=== PATIENT | male | born 1970 | race Caucasian/White ===

== ENCOUNTER 2016-11-27 17:22 | Inpatient (IN) ==
[2016-11-27] MEDS ORDERED: Ondansetron 4 MG/2 ML VIAL IV ONE (17:31)
--- NOTE | 2016-11-27 17:33 | Emergency Department Note ---
Disposition Clinical Impression: Nausea and vomiting, UTI (urinary tract infection), Elevated liver enzymes, ARF (acute renal failure), Hydronephrosis Disposition: Admitted As Inpatient Condition: Fair Referrals: NO,PCP [Non-Partnered Physician] - Forms: ED Satisfaction Letter Time of Disposition: 19:15 Nausea/Vomiting/Diarrhea HPI - General Chief complaint: ED Nausea/Vomiting/Diarrhea Stated complaint: nausea/vomiting Time Seen by Provider: 11/27/16 17:31 Source: patient, EMS Mode of arrival: EMS Limitations: no limitations Nursing Notes Reviewed: Yes Vital Signs Reviewed: Yes - History of Present Illness HPI Narrative: This is a 46-year-old male who presents by EMS for complaints of nausea and vomiting over the last 3 days. Patient denies any diarrhea, black, or bloody stools. Patient is not having any urinary symptoms. Patient denies any fevers. Patient is not having any chest pain or shortness of breath. Patient is not really having any abdominal pain with this vomiting. Pt states his home nurse called the squad for him to get evaluated. Pt Subjective Complaint: nausea, vomiting Onset (ago): day(s) (3) - Related Data Previous Rx's Medication Instructions Recorded Cefdinir [Omnicef] 300 mg PO BID #20 capsule 07/13/15 Mupirocin [Bactroban Oint] 1 appl TP BID #1 tube 07/13/15 Allergies Allergy/AdvReac Type Severity Reaction Status Date / Time codeine Allergy Rash Verified 07/13/15 01:50 All systems ED: reviewed and negative except as stated. Constitutional: Denies: fever, chills, weakness, weight change Eyes: Denies: eye pain, eye discharge, vision change ENT ED: Denies: ear pain, throat pain, dental pain, hearing loss, epistaxis, congestion, dysphagia Cardiovascular: Denies: chest pain, palpitations, dyspnea on exertion, edema, syncope Respiratory: Denies: cough, dyspnea, wheezes, hemoptysis, stridor Gastrointestinal: Reports: nausea, vomiting. Denies: abdominal pain, diarrhea, constipation, hematemesis, melena, hematochezia Genitourinary: Denies: urgency, dysuria, frequency, hematuria Musculoskeletal: Denies: back pain, neck pain, arthralgia, myalgia Integumentary: Denies: rash, abrasion, lesions Neurological: Denies: headache, weakness, numbness, paresthesias, confusion, abnormal gait, vertigo Psychiatric: Denies: anxiety, depression, suicidal thoughts, homicidal thoughts , auditory hallucinations, visual hallucinations Endocrine: Denies: fatigue Hematological/Lymphatic: Denies: easy bleeding, easy bruising Allergic/Immunologic: Denies: facial swelling, urticaria Past Medical History - Past Medical History Attestation: Yes The following information was validated with the patient. Source: patient Medical history: Reports: hyperlipidemia, hypertension Surgical history: Reports: no surgical history Psychiatric history: Reports: bipolar - Social History Smoking Status: Current every day smoker Smokeless Tobacco Status: No Alcohol use: Reports: none Drug use: Reports: none Physical Exam - General Limitations: no limitations General appearance: alert, in no apparent distress - Head Head exam: atraumatic, normocephalic, normal inspection - Eye Eye exam: Present: normal appearance, PERRL, EOMI - ENT ENT exam: normal exam, normal oropharynx, mucous membranes moist - Expanded ENT Exam External ear exam: Present: normal external inspection Mouth exam: Present: normal external inspection Teeth exam: Present: normal inspection Throat exam: Present: normal inspection - Neck Neck exam: Present: normal inspection, full ROM, trachea midline - Chest Chest inspection: Present: normal inspection, symmetric chest wall rise - Respiratory Respiratory exam: Present: normal lung sounds bilaterally - Cardiovascular Cardiovascular exam: Present: regular rate, normal rhythm, normal heart sounds - Abdominal Exam Abdominal exam: Present: soft, Non-Tender. Absent: tenderness, distention, guarding, rebound, rigidity - Extremities Exam Extremities exam: Present: normal inspection, full ROM. Absent: tenderness, pedal edema - Expanded Upper Extremity Exam Shoulder exam: Present: normal inspection, full ROM Arm exam: Present: normal inspection, full ROM Elbow exam: Present: normal inspection, full ROM Forearm/Wrist exam: Present: normal inspection, full ROM Hand exam: Present: normal inspection, full ROM Vascular exam: Normal: capillary refill, radial pulse - Expanded Lower Extremity Exam Hip/Pelvis exam: Present: normal inspection, full ROM Upper leg exam: Present: normal inspection, full ROM Knee exam: Present: normal inspection, full ROM Lower leg exam: Present: normal inspection, full ROM Ankle exam: Present: normal inspection, full ROM Foot/toe exam: Present: normal inspection, full ROM Neurovascular/Tendon exam: Absent: motor deficit, sensory deficit, tendon deficit - Back Exam Back exam: Present: normal inspection, full ROM. Absent: tenderness - Neurological Exam Neurological exam: Present: alert, oriented X3 - Expanded Neurological Exam Patient oriented to: Present: person, place, time Coma Scale Eye Opening: Spontaneous Coma Scale Motor Response: Obeys Commands Coma Scale Verbal Response: Oriented Coma Scale Total: 15 - Psychiatric Psychiatric exam: Present: normal mood, other (pt has an odd affect on exam) - Skin Skin exam: Present: warm, dry, intact, normal color Course - Consultations Consultation #1: I spoke with Dr. Lisandra lei to admit. Time: 19:20 Vital Signs Temperature 98.7 F 11/27/16 17:26 Pulse Rate 91 11/27/16 17:26 Respiratory Rate 24 11/27/16 17:26 Blood Pressure 122/94 11/27/16 17:26 O2 Sat by Pulse Oximetry 100 11/27/16 17:26 Temperature 98.7 F 11/27/16 17:26 Pulse Rate 97 11/27/16 18:25 Respiratory Rate 15 11/27/16 18:25 Blood Pressure 144/91 11/27/16 18:25 O2 Sat by Pulse Oximetry 97 11/27/16 18:25 Oxygen Delivery Oxygen Delivery Room Air Nausea/Vomiting/Diarrhea - Medical Records Medical records reviewed: Yes I reviewed the patient's medical records. - Lab Data Lab results reviewed: Yes I reviewed the patient's lab results. Result diagrams: 11/27/16 17:55 11/27/16 17:55 Lab Results 11/27/16 11/27/16 11/27/16 Range/Units 16:00 17:55 17:55 WBC 20.0 H (4.3-11.1) K/mcL RBC 4.04 L (4.19-5.50) M/mcL Hgb 11.7 L (12.9-16.9) g/dL Hct 34.6 L (37.5-50.1) % MCV 85.6 (83.0-100.0) fL MCH 29.0 (28.0-33.3) pg MCHC 33.8 (31.6-35.5) g/dL RDW 13.4 (11.5-14.5) % Plt Count 380 (140-400) K/mcL MPV 9.5 (9.4-12.4) fL Immature Gran % 2.3 (0-4) % Seg Neutrophils % 82.1 % Lymphocytes % 7.9 % Monocytes % 7.3 % Eosinophils % 0.2 % Basophils % 0.2 % Neutrophils # 16.4 H (1.6-8.9) K/mcL Lymphocytes # 1.6 (0.6-4.6) K/mcL Monocytes # 1.5 H (0.0-1.3) K/mcL Eosinophils # 0.1 (0.0-0.6) K/mcL Basophils # 0.0 (0.0-0.2) K/mcL Sodium 136 (136-145) mEq/L Potassium 3.7 (3.5-4.5) mEq/L Chloride 106 (98-109) mEq/L Carbon Dioxide 20 (19-29) mEq/L BUN 23 (8-26) mg/dL Creatinine 2.09 H (0.72-1.25) mg/dL Est GFR ( Amer) 41 L (> 60) Est GFR (Non-Af Amer) 34 L (> 60) BUN/Creatinine Ratio 11 (6-26) Glucose 112 H (70-99) mg/dL Calculated Osmolality 286 (280-300) Lactic Acid (0.5-2.2) mmol/L Calcium 10.6 (8.6-10.8) mg/dL Total Bilirubin 0.6 (0.2-1.2) mg/dL Direct Bilirubin 0.4 (0.0-0.5) mg/dL Indirect Bilirubin 0.2 (0.0-1.2) mg/dL AST 80 H (5-34) Units/L ALT 89 H (0-55) Units/L Alkaline Phosphatase 429 H (38-126) Units/L Troponin I (0-0.03) ng/mL B-Natriuretic Peptide (0-100) pg/mL Serum Total Protein 7.5 (6.0-8.3) g/dL Albumin 2.1 L (3.5-5.0) g/dL Globulin 5.4 H (2.4-3.5) g/dL Albumin/Globulin Ratio 0.4 L (1.1-2.2) Lipase 31 (8-78) Units/L Urine Color Yellow (Yellow) Urine Clarity Turbid A (Clear) Urine pH 7.0 (5.0-8.0) pH Units Ur Specific [place] 1.009 L (1.010-1.025) Urine Protein 100 H (Neg-Trace) mg/dL Urine Glucose (UA) Normal (Normal) mg/dL Urine Ketones Negative (Negative) mg/dL Urine Blood Moderate H (Negative) Urine Nitrite Positive A (Negative) Urine Bilirubin Negative (Negative) Urine Urobilinogen Normal (Normal) mg/dL Ur Leukocyte Esterase Large H (Negative) 11/27/16 11/27/16 11/27/16 Range/Units 17:55 17:55 17:55 WBC (4.3-11.1) K/mcL RBC (4.19-5.50) M/mcL Hgb (12.9-16.9) g/dL Hct (37.5-50.1) % MCV (83.0-100.0) fL MCH (28.0-33.3) pg MCHC (31.6-35.5) g/dL RDW (11.5-14.5) % Plt Count (140-400) K/mcL MPV (9.4-12.4) fL Immature Gran % (0-4) % Seg Neutrophils % % Lymphocytes % % Monocytes % % Eosinophils % % Basophils % % Neutrophils # (1.6-8.9) K/mcL Lymphocytes # (0.6-4.6) K/mcL Monocytes # (0.0-1.3) K/mcL Eosinophils # (0.0-0.6) K/mcL Basophils # (0.0-0.2) K/mcL Sodium (136-145) mEq/L Potassium (3.5-4.5) mEq/L Chloride (98-109) mEq/L Carbon Dioxide (19-29) mEq/L BUN (8-26) mg/dL Creatinine (0.72-1.25) mg/dL Est GFR ( Amer) (> 60) Est GFR (Non-Af Amer) (> 60) BUN/Creatinine Ratio (6-26) Glucose (70-99) mg/dL Calculated Osmolality (280-300) Lactic Acid 1.1 (0.5-2.2) mmol/L Calcium (8.6-10.8) mg/dL Total Bilirubin (0.2-1.2) mg/dL Direct Bilirubin (0.0-0.5) mg/dL Indirect Bilirubin (0.0-1.2) mg/dL AST (5-34) Units/L ALT (0-55) Units/L Alkaline Phosphatase (38-126) Units/L Troponin I 0.01 (0-0.03) ng/mL B-Natriuretic Peptide 18 (0-100) pg/mL Serum Total Protein (6.0-8.3) g/dL Albumin (3.5-5.0) g/dL Globulin (2.4-3.5) g/dL Albumin/Globulin Ratio (1.1-2.2) Lipase (8-78) Units/L Urine Color (Yellow) Urine Clarity (Clear) Urine pH (5.0-8.0) pH Units Ur Specific [place] (1.010-1.025) Urine Protein (Neg-Trace) mg/dL Urine Glucose (UA) (Normal) mg/dL Urine Ketones (Negative) mg/dL Urine Blood (Negative) Urine Nitrite (Negative) Urine Bilirubin (Negative) Urine Urobilinogen (Normal) mg/dL Ur Leukocyte Esterase (Negative) - Radiology Data Radiology results reviewed: Yes I reviewed the patient's radiology results. - EKG Data EKG attestation: Yes I reviewed and interpreted this EKG. EKG shows normal: sinus rhythm Rate: normal Rhythm: NSR [place]/QRS: normal Interpretation: no acute changes, nonspecific ST-T wave changes
[2016-11-27] MEDS ORDERED: 0.9 % Sodium Chloride 1,000 ML IV SCH (17:45)
[2016-11-27 18:02] LABS: Basophils % 0.2 %; Eosinophils # 0.1 K/mcL (0.0-0.6); Eosinophils % 0.2 %; Hematocrit 34.6 % (37.5-50.1); Hemoglobin 11.7 g/dL (12.9-16.9); Immature Granulocytes % 2.3 % (0-4); Lymphocytes # 1.6 K/mcL (0.6-4.6); Lymphocytes % 7.9 %; Mean Corpuscular HGB Conc 33.8 g/dL (31.6-35.5); Mean Corpuscular Volume 85.6 fL (83.0-100.0); Mean Platelet Volume 9.5 fL (9.4-12.4); Monocytes # 1.5 K/mcL (0.0-1.3); Monocytes % 7.3 %; Neutrophils # 16.4 K/mcL (1.6-8.9); Platelet Count 380 K/mcL (140-400); Red Blood Count 4.04 M/mcL (4.19-5.50); Red Cell Distribution Width 13.4 % (11.5-14.5); Segmented Neutrophils % 82.1 %
[2016-11-27 18:17] LABS: Albumin 2.1 g/dL (3.5-5.0); Albumin/Globulin Ratio 0.4 (1.1-2.2); Bilirubin,Direct 0.4 mg/dL (0.0-0.5); Bilirubin,Indirect 0.2 mg/dL (0.0-1.2); Bilirubin,Total 0.6 mg/dL (0.2-1.2); Calcium 10.6 mg/dL (8.6-10.8); Globulin 5.4 g/dL (2.4-3.5); Potassium 3.7 mEq/L (3.5-4.5); Total Protein 7.5 g/dL (6.0-8.3)
[2016-11-27 18:55] LABS: Bilirubin,Urine Negative (Negative); Blood,Urine Moderate (Negative); Clarity,Urine Turbid (Clear); Color,Urine Yellow (Yellow); Glucose,Urine (UA) Normal (Normal); Ketones,Urine Negative (Negative); Leukocyte Esterase,Urine Large (Negative); Nitrite,Urine Positive (Negative); Protein,Urine 100 mg/dL (Neg-Trace); Specific Gravity,Urine 1.009 (1.010-1.025); Urobilinogen,Urine Normal (Normal)
[2016-11-27 18:57] LABS: Bacteria,Urine Many per hpf (None-Few); RBC,Urine 15-30 per hpf (0-3); Squamous Epithelial Cell,Urine Many per lpf (None-Few); WBC,Urine TNTC per hpf (0-3)
[2016-11-27 19:38] LABS: Hyaline Casts,Urine None Seen per lpf (None-Few); Mucus,Urine Many (Few)
[2016-11-27 19:57] LABS: Hepatitis B Surface Antigen Nonreactive (Nonreactive)
--- NOTE | 2016-11-27 20:37 | Internal Med History&Physical ---
Date of Encounter: 11/27/16 Time of Encounter: 08:00 Assessment and Plan (1) UTI (urinary tract infection) Current visit: Yes Status: Acute CT with severe bilateral hydronephrosis, bilateral hydroureter, distal ureter narrowing, mild bladder wall thickening Hydronephrosis is chronic problem WBC 20, repeat CBC in am Ceftriaxone 1,000mg per day Urine culture, pending UA positive for leukocyte esterase, nitrite, blood, protein mucus Place urban Qualifiers: Urinary tract infection type: acute cystitis Hematuria presence: without hematuria Qualified Code(s): N30.00 - Acute cystitis without hematuria (2) Nausea and vomiting Current visit: Yes Status: Acute Patient not vomiting during exam Continue IVF at 150mL/hr Zofran, Phenergan as needed for nausea Qualifiers: Vomiting type: unspecified Vomiting Intractability: unspecified Qualified Code(s): R11.2 - Nausea with vomiting, unspecified (3) Hydronephrosis Current visit: Yes Status: Acute CT with severe bilateral hydronephrosis, bilateral hydroureter, distal ureter narrowing, mild bladder wall thickening Hydronephosis unchanged since US performed August, Urban in place Will continue aggressive IVF Qualifiers: Hydronephrosis type: with other ureteral stricture Qualified Code(s): N13.1 - Hydronephrosis with ureteral stricture, not elsewhere classified (4) Elevated liver enzymes Current visit: Yes Status: Acute Continue to trend LFTs Hepatic panel, pending (5) ARF (acute renal failure) Current visit: Yes Status: Acute Kidney function declined from 08/22 Cr 2.09 today, but was 1.43 / Continue IVF Avoid nephrotoxic agents Qualifiers: Acute renal failure type: unspecified Qualified Code(s): N17.9 - Acute kidney failure, unspecified (6) Leukocytosis Current visit: Yes Status: Acute WBC 20 Ceftriaxone 1,000 mg each day Await results of urine culture Qualifiers: Leukocytosis type: unspecified Qualified Code(s): D72.829 - Elevated white blood cell count, unspecified (7) Hypothyroidism Current visit: Yes Status: Acute continue home medication Qualifiers: Hypothyroidism type: unspecified Qualified Code(s): E03.9 - Hypothyroidism , unspecified (8) Bipolar disorder Current visit: Yes Status: Acute continue home medication Qualifiers: Active/Remission status: remission status unspecified Qualified Code(s): F31.9 - Bipolar disorder, unspecified Internal Medicine - H&P: HPI Chief complaint: nausea and vomiting Admitted From: Emergency Dept Plans for Post Hospital Care: Home History of present illness: Mr. Ferguson is a 46 year old male with past medical history of HLD, CKD, Hydronephrosis, Urinary Incontinence, Hypothyroidism, GERD, Bipolar disorder presented to the hospital with 3 day history of nausea and vomiting. He states that he "cannot keep anything down". The vomiting was associated with periumbilical and LUQ abdominal pain rated 6/10 at onset and 4/10 at this time. Patient states that after taking 1 tylenol the pain was improved. Patient admits history of heartburn for which he takes Ranitidine. He denies fever, chills, diarrhea, constipation, hematochezia, melena. Past Med Surg Social Fam HX - Past Medical History Medical history: GERD, hyperlipidemia, hypertension, other (hydronephrosis, urine incontinence, abdominal hernia) Psychiatric history: bipolar - Past Surgical History Surgical History: no surgical history, other (laparoscope in August 2015 for abdominal hernia) - Social History Smoking Status: Current every day smoker Smokeless Tobacco Status: No Alcohol use: none Drug use: none Internal Medicine - H&P: Meds Levothyroxine [Synthroid] 50 mcg PO 0630 11/27/16 [History] Ranitidine HCl 150 mg PO BID 11/27/16 [History] Sertraline [Zoloft] 50 mg PO DAILY 11/27/16 [History] Tamsulosin [Flomax] 0.4 mg 11/27/16 [History] Allergies codeine Allergy (Verified 07/13/15 01:50) Rash All Systems PM: A 10-system review of systems was performed and is negative for pertinent findings except as documented above in the HPI. - Constitutional Constitutional: no chills, no fever(s), no weight gain - EENT Nose, mouth and throat: other (admits hearing deficit) - Cardiovascular Cardiovascular ROS IM: no chest pain, no edema, no palpitations - Respiratory Respiratory: no cough, no dyspnea, no hemoptysis - Gastrointestinal Gastrointestinal: abdominal pain, heartburn, nausea, vomiting, no constipation, no diarrhea, no melena - Genitourinary Genitourinary ROS male: urinary incontinence, urinary urgency, no difficulty urinating, no dysuria, no flank pain, no hematuria, no urinary frequency, no urinary hesitancy - Musculoskeletal Musculoskeletal ROS IM: no muscle cramps - Neurological Neurological ROS: abnormal hearing - Psychiatric Psychiatric: other (bipolar disorder) - Constitutional Vitals: Temp Pulse Resp BP Pulse Ox 98.7 F 108 18 128/80 96 11/27/16 17:26 11/27/16 20:00 11/27/16 20:00 11/27/16 20:00 11/27/16 20:00 General appearance: Present: cooperative, A&O X 3, pleasant Exam: cognitive delay - Head Head exam: Present: atraumatic, normocephalic - Eye Eye exam: Present: EOMI - ENT ENT exam: Present: mucous membranes moist - Neck Neck exam general surgery: Present: full ROM, nuchal rigidity, supple Additional comments: no carotid bruit - Respiratory Respiratory exam: Present: CTAB. Absent: rales, rhonchi, wheezes - Cardiovascular Cardiovascular exam: Present: RRR, +S1, +S2 - GI/Abdominal GI/Abdominal exam: Present: normal bowel sounds, soft, tenderness (Mild tenderness to palpation RUQ and LUQ). Absent: hepatomegaly - Neurological Exam Neurological exam: Present: oriented X3 - Psychiatric Psychiatric exam: Present: normal affect, normal mood Internal Med - H&P Results - Labs CBC & Chem 7: 11/27/16 17:55 11/27/16 17:55 - Attending Attestation I examined this patient and my medical decision-making was reviewed with the RESP THERAPIST/PA/Advanced Practice Nurse/Resident Physician. I agree with the documented findings, disposition and treatment plan as described except to the extent set forth below.
[2016-11-27] MEDS ORDERED: Acetaminophen 325 MG TABLET PO PRN (21:34)
[2016-11-27] MEDS ORDERED: Naloxone 0.4 MG/ML INJ IVP PRN (21:34)
[2016-11-27] MEDS ORDERED: *HR* Promethazine 25 MG/ML VIAL IVP PRN (21:34)
[2016-11-28] MEDS ORDERED: Ondansetron 4 MG/2 ML VIAL IVP SCH ×2
[2016-11-28] MEDS: Pantoprazole 40 MG VIAL IVP SCH ×2 (00:06→09:15)
[2016-11-28] MEDS: 0.9 % Sodium Chloride 1,000 ML IV SCH ×3 (00:07→12:00)
[2016-11-28] MEDS ORDERED: Ondansetron 4 MG/2 ML VIAL IVP PRN (00:27)
[2016-11-28 05:52] LABS: Calcium 9.6 mg/dL (8.6-10.8); Potassium 3.6 mEq/L (3.5-4.5)
[2016-11-28] MEDS ORDERED: *HR* Enoxaparin 40 MG/0.4 ML SYRINGE SQ SCH (07:00)
--- NOTE | 2016-11-28 08:55 | Urology - Consult Note ---
Date of Encounter: 11/28/16 Time of Encounter: 08:53 - Assessment and Plan (1) ARF (acute renal failure) Current Visit: Yes Status: Acute Assessment and plan: Continue IV fluids and antibiotics. We'll follow GFR for improvement. May ultimately require urologic intervention because of the hydronephrosis. Qualifiers: Acute renal failure type: unspecified Qualified Code(s): N17.9 - Acute kidney failure, unspecified (2) Hydronephrosis Current Visit: Yes Status: Acute Assessment and plan: I carefully reviewed the CT scan images. The patient has significant bilateral hydronephrosis and hydroureter down to the ureterovesical junctions. He has a moderately distended bladder with mild bladder wall thickening. The hydronephrosis may be due to obstruction at the ureterovesical junction. He may have significant incomplete emptying. I'm still unsure if this is acute or chronic. I plan to check a post void bladder scan to assess for residual urine. If it is significantly elevated he may require a Figueroa catheter. Ultimately if his renal function does not improve he may require a cystoscopy, bilateral retrograde pyelograms, bilateral ureteral stents. This may be done as an outpatient as he is clinically stable. continue tamsulosin I will follow closely Qualifiers: Hydronephrosis type: unspecified Qualified Code(s): N13.30 - Unspecified hydronephrosis (3) UTI (urinary tract infection) Current Visit: Yes Status: Acute Assessment and plan: Follow cultures and continue antibiotics Qualifiers: Urinary tract infection type: acute cystitis Hematuria presence: without hematuria Qualified Code(s): N30.00 - Acute cystitis without hematuria (4) Poor historian Current Visit: Yes Status: Acute Assessment and plan: After my discussion with the patient I'm concerned that his mental capacity was not allow him to understand the CT scan findings and potential surgical intervention. He states he has a girlfriend that may help him make medical decisions. Multiple times during my discussion I asked him to repeat back what we had discussed and it was evident that he did not understand his current clinical situation Urology CN:SIMEON Consult date: 11/28/16 Reason for consult Urology: Hydronephrosis History of present illness: 46-year-old male. Presents to the emergency room with nausea vomiting. Ultrasound and then CT scan shows hydronephrosis and hydroureter down to the ureteral vesicle junction. Distended and mildly thickened bladder wall. Patient has renal insufficiency with a GFR 41 at admission that has improved to 45. Urinalysis indicates a urinary tract infection. Patient denies any significant urinary issues. Later after I questioned why he wore a diaper he said he has incontinence. No prior knowledge of renal insufficiency or hydronephrosis. Poor historian Past Med Surg Social Fam HX - Past Medical History Medical history: GERD, hyperlipidemia, hypertension, other Psychiatric history: bipolar - Past Surgical History Surgical History: no surgical history, other - Social History Smoking Status: Current every day smoker Packs per day: 1 Smokeless Tobacco Status: No Alcohol use: none Drug use: none - Family History Mother Living Status: Age at : 70 Cause of : Kidney failure Hx Family Genitourinary Disorders: Yes (CKD) Father History Unknown: Yes Age: 70 Family Member Ethnicity: Non- Living Status: Still Living Medications and Allergies Levothyroxine [Synthroid] 50 mcg PO 0630 11/27/16 [History] Ranitidine HCl 150 mg PO BID 11/27/16 [History] Sertraline [Zoloft] 50 mg PO DAILY 11/27/16 [History] Tamsulosin [Flomax] 0.4 mg 11/27/16 [History] Allergies codeine Allergy (Verified 07/13/15 01:50) Rash Review of Systems - Constitutional fatigue, no chills, no fever(s) - EENT Nose, mouth and throat: no dizziness - Cardiovascular no chest pain - Respiratory no cough - Gastrointestinal abdominal pain, nausea, vomiting - Genitourinary urinary incontinence - Musculoskeletal back pain - Integumentary no erythema - Neurological confusion - Psychiatric no anxiety - Hematologic/Lymphatic no easy bleeding - Allergic/Immunologic no throat swelling Exam Initial Vital Signs Temp Pulse Resp BP Pulse Ox 98.7 F 91 24 122/94 100 11/27/16 17:26 11/27/16 17:26 11/27/16 17:26 11/27/16 17:26 11/27/16 17:26 - General physical appearance Present: well developed, no distress - Eyes Present: PERRL - ENT Present: normal nares - Neck Present: no masses - Respiratory Present: normal respiratory effort - Cardiovascular Cardiovascular exam IM: RRR - Abdomen Abdomen: Present: soft, suprapubic tenderness - Genitourinary normal penis with no external lesions - Integumentary Present: no rash - Neurologic Present: normal coordination, other (Hard of hearing. Was not able to repeat back information that I just discussed with him) Urology Results - Labs 11/27/16 17:55 11/28/16 04:36 Abnormal lab results WBC 20.0 K/mcL (4.3-11.1) H 11/27/16 17:55 RBC 4.04 M/mcL (4.19-5.50) L 11/27/16 17:55 Hgb 11.7 g/dL (12.9-16.9) L 11/27/16 17:55 Hct 34.6 % (37.5-50.1) L 11/27/16 17:55 Neutrophils # 16.4 K/mcL (1.6-8.9) H 11/27/16 17:55 Monocytes # 1.5 K/mcL (0.0-1.3) H 11/27/16 17:55 Chloride 111 mEq/L (98-109) H 11/28/16 04:36 Carbon Dioxide 17 mEq/L (19-29) L 11/28/16 04:36 Creatinine 1.93 mg/dL (0.72-1.25) H 11/28/16 04:36 Est GFR ( Amer) 45 (> 60) L 11/28/16 04:36 Est GFR (Non-Af Amer) 38 (> 60) L 11/28/16 04:36 Glucose 135 mg/dL (70-99) H 11/28/16 04:36 AST 80 Units/L (5-34) H 11/27/16 17:55 ALT 89 Units/L (0-55) H 11/27/16 17:55 Alkaline Phosphatase 429 Units/L (38-126) H 11/27/16 17:55 Albumin 2.1 g/dL (3.5-5.0) L 11/27/16 17:55 Globulin 5.4 g/dL (2.4-3.5) H 11/27/16 17:55 Albumin/Globulin Ratio 0.4 (1.1-2.2) L 11/27/16 17:55 Urine Clarity Turbid (Clear) A 11/27/16 16:00 Ur Specific [place] 1.009 (1.010-1.025) L 11/27/16 16:00 Urine Protein 100 mg/dL (Neg-Trace) H 11/27/16 16:00 Urine Blood Moderate (Negative) H 11/27/16 16:00 Urine Nitrite Positive (Negative) A 11/27/16 16:00 Ur Leukocyte Esterase Large (Negative) H 11/27/16 16:00 Urine Microscopic RBC 15-30 per hpf (0-3) H 11/27/16 16:00 Urine Microscopic WBC TNTC per hpf (0-3) H 11/27/16 16:00 Ur Squamous Epith Cells Many per lpf (None-Few) H 11/27/16 16:00 Urine Bacteria Many per hpf (None-Few) H 11/27/16 16:00 Urine Mucus Many (Few) H 11/27/16 16:00 Ur Culture Indicated? YES (NO) A 11/27/16 16:00 Diabetes panel 11/28/16 Range/Units 04:36 Sodium 139 (136-145) mEq/L Potassium 3.6 (3.5-4.5) mEq/L Chloride 111 H (98-109) mEq/L Carbon Dioxide 17 L (19-29) mEq/L BUN 21 (8-26) mg/dL Creatinine 1.93 H (0.72-1.25) mg/dL Glucose 135 H (70-99) mg/dL Calcium 9.6 (8.6-10.8) mg/dL Calcium panel 11/28/16 Range/Units 04:36 Calcium 9.6 (8.6-10.8) mg/dL Pituitary panel 11/28/16 Range/Units 04:36 Sodium 139 (136-145) mEq/L Potassium 3.6 (3.5-4.5) mEq/L Chloride 111 H (98-109) mEq/L Carbon Dioxide 17 L (19-29) mEq/L BUN 21 (8-26) mg/dL Creatinine 1.93 H (0.72-1.25) mg/dL Glucose 135 H (70-99) mg/dL Calcium 9.6 (8.6-10.8) mg/dL Adrenal panel 11/28/16 Range/Units 04:36 Sodium 139 (136-145) mEq/L Potassium 3.6 (3.5-4.5) mEq/L Chloride 111 H (98-109) mEq/L Carbon Dioxide 17 L (19-29) mEq/L BUN 21 (8-26) mg/dL Creatinine 1.93 H (0.72-1.25) mg/dL Glucose 135 H (70-99) mg/dL Calcium 9.6 (8.6-10.8) mg/dL All other labs normal. Consult Discharge Plan - Plan Referrals: Andrew Francisco Jr, MD [Primary Care Provider] -
[2016-11-28] MEDS ORDERED: Pantoprazole 40 MG VIAL IVP SCH (09:00)
--- NOTE | 2016-11-28 12:42 | Internal Med Progress Note ---
Date of Encounter: 11/28/16 Time of Encounter: 12:40 - Assessment and plan (1) Hydronephrosis Current Visit: Yes Status: Chronic Assessment and plan: Patient is noted to have bilateral hydronephrosis and hydroureters due to obstruction at ureterovesical junctions. Urology consult appreciated, difficult to certain the chronicity of this condition. Patient may require cystoscopy, retrograde pyelograms and bilateral ureteral stents, which can be done as an outpatient. Recommend to check residual urine/post void with bladder scan, consider Figueroa catheter placement if elevated. Qualifiers: Hydronephrosis type: with ureteropelvic junction obstruction Qualified Code (s): Q62.0 - Congenital hydronephrosis (2) UTI (urinary tract infection) Current Visit: Yes Status: Acute Assessment and plan: Likely secondary to obstructive uropathy. Urine dipstick positive for UTI, urine culture grows gram-negative rods. Follow-up final urine culture and continue IV Rocephin for now. Qualifiers: Urinary tract infection type: acute cystitis Hematuria presence: without hematuria Qualified Code(s): N30.00 - Acute cystitis without hematuria (3) Acute kidney injury Current Visit: Yes Status: Acute Assessment and plan: Patient likely has acute on chronic renal dysfunction, likely due to prerenal etiology from GI losses along with obstructive uropathy. Serum creatinine from about 6-8 months back was noted to be 1.4. Improving serum creatinine at this time. Continue IV hydration and monitor urine output and serum creatinine. Avoid new nephrotoxic agents, dose medications according to current GFR. (4) Bipolar disorder Current Visit: Yes Status: Chronic Assessment and plan: Resume home medications. Stable mood at this time. Qualifiers: Active/Remission status: remission status unspecified Qualified Code(s): F31.9 - Bipolar disorder, unspecified (5) Elevated liver enzymes Current Visit: Yes Status: Chronic Assessment and plan: Uncertain etiology. Hepatitis B surface antigen negative. Follow-up remaining viral hepatitis panel. Continue to monitor LFTs. (6) Hypothyroidism Current Visit: Yes Status: Chronic Qualifiers: Hypothyroidism type: acquired Qualified Code(s): E03.9 - Hypothyroidism, unspecified (7) Leukocytosis Current Visit: Yes Status: Acute Assessment and plan: Likely related to stress from persistent nausea and vomiting along with underlying UTI. Currently noted to be improving. Qualifiers: Leukocytosis type: unspecified Qualified Code(s): D72.829 - Elevated white blood cell count, unspecified (8) Nausea and vomiting Current Visit: Yes Status: Resolved Qualifiers: Vomiting type: unspecified Vomiting Intractability: unspecified Qualified Code(s): R11.2 - Nausea with vomiting, unspecified - Subjective Interval history: Reports feeling much better. No chest or abdominal pain or shortness of breath. Refuses for indwelling urinary catheter replaced. No reported difficulty in passing urine. - Constitutional Vitals: Temp Pulse Resp BP Pulse Ox 98.3 F 91 18 116/76 95 11/28/16 10:37 11/28/16 10:37 11/28/16 10:37 11/28/16 10:37 11/28/16 10:37 General appearance: Present: cooperative, A&O X 2 - Respiratory Respiratory exam: Present: CTAB. Absent: accessory muscle use, rales, rhonchi, wheezes - Cardiovascular Cardiovascular exam: Present: RRR, +S1, +S2. Absent: diastolic murmur, gallop, rubs, systolic murmur - GI/Abdominal GI/Abdominal exam: Present: normal bowel sounds, soft, no peritoneal signs. Absent: distended, tenderness - Extremities Exam Extremities exam: Present: full ROM, warm, radial pulses palpable and symetrical. Absent: calf tenderness, cyanotic, pedal edema Internal Medicine: Result - Labs CBC & Chem 7: 11/28/16 12:36 11/28/16 04:36 Labs: BMP 11/28/16 04:36 Sodium 139 Potassium 3.6 Chloride 111 H Carbon Dioxide 17 L BUN 21 Creatinine 1.93 H Glucose 135 H Calcium 9.6 Consult Discharge Plan - Plan Referrals: Andrew Francisco Jr, MD [Primary Care Provider] - (Web request on11/28/2016 @[email or web address] )
[2016-11-28 12:53] LABS: Basophils # 0.1 K/mcL (0.0-0.2); Basophils % 0.3 %; Eosinophils # 0.1 K/mcL (0.0-0.6); Eosinophils % 0.4 %; Hematocrit 34.2 % (37.5-50.1); Hemoglobin 11.1 g/dL (12.9-16.9); Lymphocytes # 1.7 K/mcL (0.6-4.6); Lymphocytes % 9.8 %; Mean Corpuscular HGB Conc 32.5 g/dL (31.6-35.5); Mean Corpuscular Hemoglobin 28.7 pg (28.0-33.3); Mean Corpuscular Volume 88.4 fL (83.0-100.0); Mean Platelet Volume 9.5 fL (9.4-12.4); Monocytes # 1.1 K/mcL (0.0-1.3); Monocytes % 6.4 %; Neutrophils # 14.4 K/mcL (1.6-8.9); Platelet Count 395 K/mcL (140-400); Red Blood Count 3.87 M/mcL (4.19-5.50); Red Cell Distribution Width 13.8 % (11.5-14.5); Segmented Neutrophils % 81.1 %
[2016-11-28 13:05] LABS: Phosphorous 3.7 mg/dL (2.3-4.7)
[2016-11-28] MEDS: *HR* Heparin 5,000 UNIT/ML VIAL SQ SCH (19:49)
--- NOTE | 2016-11-28 20:06 | Electrocardiograph Report ---
[facility] Test Date: 2016-11-27 Pat Name: Lawrence Ferguson Department: 104 Room: 2A38 Gender: M [employer] Operator: SARAH : 1970 Requested By: Michelle Gonzales Order Number: [id number] Reading MD: Rowdy Blank DO Measurements Intervals [place] Rate: 96 P: 29 SD: 140 QRS: 4 QRSD: 92 T: 30 QT: 333 QTc: 386 Interpretive Statements Sinus rhythm Possible inferior myocardial infarction, age undetermined Electronically Signed On 11-28-16 20:04:45 EST by Rowdy Blank DO
[2016-11-29 05:07] LABS: Basophils % 0.3 %; Eosinophils # 0.1 K/mcL (0.0-0.6); Eosinophils % 0.9 %; Hematocrit 32.3 % (37.5-50.1); Hemoglobin 10.3 g/dL (12.9-16.9); Immature Granulocytes % 2.5 % (0-4); Lymphocytes # 1.6 K/mcL (0.6-4.6); Lymphocytes % 10.7 %; Mean Corpuscular HGB Conc 31.9 g/dL (31.6-35.5); Mean Corpuscular Hemoglobin 28.7 pg (28.0-33.3); Monocytes # 0.9 K/mcL (0.0-1.3); Monocytes % 5.9 %; Neutrophils # 11.8 K/mcL (1.6-8.9); Platelet Count 406 K/mcL (140-400); Red Blood Count 3.59 M/mcL (4.19-5.50); Segmented Neutrophils % 79.7 %
[2016-11-29 05:24] LABS: Calcium 9.9 mg/dL (8.6-10.8)
[2016-11-29] MEDS: *HR* Heparin 5,000 UNIT/ML VIAL SQ SCH (08:18)
[2016-11-29] MEDS: Pantoprazole 40 MG VIAL IVP SCH (08:18)
--- NOTE | 2016-11-29 09:13 | Urology Progress Note ---
Date of Encounter: 11/29/16 Time of Encounter: 09:11 - Assessment and Plan (1) ARF (acute renal failure) Current Visit: Yes Status: Acute Qualifiers: Acute renal failure type: unspecified Qualified Code(s): N17.9 - Acute kidney failure, unspecified (2) Hydronephrosis Current Visit: Yes Status: Chronic Assessment and plan: GFR is stable. I actually feel have some chronic renal insufficiency. PVR yesterday was 315cc. will hold off on urban cath and continue tamsulosin. followup 1-2 weeks after discharge. will reassess PVR and discuss potential for surgical intervention. Qualifiers: Hydronephrosis type: with ureteropelvic junction obstruction Qualified Code (s): Q62.0 - Congenital hydronephrosis (3) UTI (urinary tract infection) Current Visit: Yes Status: Acute Qualifiers: Urinary tract infection type: acute cystitis Hematuria presence: without hematuria Qualified Code(s): N30.00 - Acute cystitis without hematuria (4) Poor historian Current Visit: Yes Status: Acute Progress Note Subjective: no new complaints Objective Initial Vital Signs Temp Pulse Resp BP Pulse Ox 98.7 F 91 24 122/94 100 11/27/16 17:26 11/27/16 17:26 11/27/16 17:26 11/27/16 17:26 11/27/16 17:26 - General physical appearance Present: well developed, no distress - Labs 11/29/16 03:43 11/29/16 03:43 Diabetes panel 11/29/16 Range/Units 03:43 Sodium 140 (136-145) mEq/L Potassium 4.0 (3.5-4.5) mEq/L Chloride 114 H (98-109) mEq/L Carbon Dioxide 14 L (19-29) mEq/L BUN 16 (8-26) mg/dL Creatinine 1.88 H (0.72-1.25) mg/dL Glucose 155 H (70-99) mg/dL Calcium 9.9 (8.6-10.8) mg/dL Calcium panel 11/28/16 11/29/16 Range/Units 12:36 03:43 Calcium 9.9 (8.6-10.8) mg/dL Phosphorus 3.7 (2.3-4.7) mg/dL Pituitary panel 11/29/16 Range/Units 03:43 Sodium 140 (136-145) mEq/L Potassium 4.0 (3.5-4.5) mEq/L Chloride 114 H (98-109) mEq/L Carbon Dioxide 14 L (19-29) mEq/L BUN 16 (8-26) mg/dL Creatinine 1.88 H (0.72-1.25) mg/dL Glucose 155 H (70-99) mg/dL Calcium 9.9 (8.6-10.8) mg/dL Adrenal panel 11/29/16 Range/Units 03:43 Sodium 140 (136-145) mEq/L Potassium 4.0 (3.5-4.5) mEq/L Chloride 114 H (98-109) mEq/L Carbon Dioxide 14 L (19-29) mEq/L BUN 16 (8-26) mg/dL Creatinine 1.88 H (0.72-1.25) mg/dL Glucose 155 H (70-99) mg/dL Calcium 9.9 (8.6-10.8) mg/dL Consult Discharge Plan - Plan Referrals: Andrew Francisco Jr, MD [Primary Care Provider] - (Web request on11/28/2016 @[email or web address] )
[2016-11-29 11:06] VITALS: BP 105/72
[2016-11-29] MEDS: 0.9 % Sodium Chloride 1,000 ML IV SCH (11:57)
[2016-11-29 12:57] LABS: Hepatitis B Core IgM Nonreactive (Nonreactive); Hepatitis C Virus Antibody Nonreactive (Nonreactive)
[2016-11-29 13:49] LABS: Hepatitis A Antibody IgM Nonreactive (Nonreactive)
--- NOTE | 2016-11-29 13:59 | Discharge Summary ---
Date of Encounter: 11/29/16 Time of Encounter: 11:30 - Discharge Diagnosis (1) Hydronephrosis Priority: Primary Status: Chronic Qualifiers: Hydronephrosis type: with ureteropelvic junction obstruction Qualified Code (s): Q62.0 - Congenital hydronephrosis (2) UTI (urinary tract infection) Priority: Primary Status: Acute Qualifiers: Urinary tract infection type: acute cystitis Hematuria presence: without hematuria Qualified Code(s): N30.00 - Acute cystitis without hematuria (3) Acute kidney injury Priority: Primary Status: Acute (4) Bipolar disorder Priority: Secondary Status: Chronic Qualifiers: Active/Remission status: remission status unspecified Qualified Code(s): F31.9 - Bipolar disorder, unspecified (5) Elevated liver enzymes Priority: Secondary Status: Chronic (6) Hypothyroidism Priority: Secondary Status: Chronic Qualifiers: Hypothyroidism type: acquired Qualified Code(s): E03.9 - Hypothyroidism, unspecified (7) Leukocytosis Priority: Primary Status: Resolved Qualifiers: Leukocytosis type: unspecified Qualified Code(s): D72.829 - Elevated white blood cell count, unspecified (8) Nausea and vomiting Priority: Primary Status: Resolved Qualifiers: Vomiting type: unspecified Vomiting Intractability: unspecified Qualified Code(s): R11.2 - Nausea with vomiting, unspecified (9) Chronic kidney disease Priority: Secondary Status: Chronic Qualifiers: Chronic kidney disease stage: stage 3 (moderate) Qualified Code(s): N18.3 - Chronic kidney disease, stage 3 (moderate) - Discharge Medications Prescriptions: Levofloxacin [Levaquin] 500 mg PO Q48H #6 tablet Home Medications: Levothyroxine [Synthroid] 50 mcg PO DAILY 11/27/16 [History] Ranitidine HCl 150 mg PO BID 11/27/16 [History] Sertraline [Zoloft] 50 mg PO DAILY 11/27/16 [History] Tamsulosin [Flomax] 0.4 mg PO DAILY 11/27/16 [History] Levofloxacin [Levaquin] 500 mg PO Q48H #6 tablet 11/29/16 [Rx] Allergies/Adverse Reactions: Allergies codeine Allergy (Verified 07/13/15 01:50) Rash Date of admission: 11/27/16 21:27 Primary care physician: Andrew Francisco Jr, MD Consults: 11/27/16 22:30 Consult to Urology [CONS] Routine Consulting Provider: Jenifer Peacock Reason for Consult: acute on CKD, chronic urinary retention/obstructive uropathy. Call Completed: No Discharging clinician: Julia Vasquez Anticipated date of discharge: 11/29/16 - Patient Status Disposition: Home, Self-Care Condition: Good Functional capacity at discharge: independent ambulation Overall status at discharge: patient is progressing back to baseline - Discharge Instructions Instructions: Levofloxacin (By mouth), Acute Kidney Injury (DC), Urinary Tract Infection in Men (DC) Follow Up With: Andrew Francisco Jr, MD [Primary Care Provider] - (Web request @[phone] ) Additional Instructions: F/up with Urology ([facility]) in 1-2 weeks - Diet and Activity Activity: resume usual activities as tolerated Diet: advance to your usual diet Hospital course: Mr. Ferguson is a 46 year old male with bipolar disorder and chronic obstructive uropathy, admitted with persistent nausea, vomiting and weakness. He was started on IV hydration and PRN antiemetics and her GI symptoms resolved and he was able to tolerate oral diet. He was noted to have acute on likely chronic renal failure, and his serum creatinine gradually improved back to baseline. Urine culture grew Klebsiella, pansensitive and blood cultures remained negative. He was evaluated by Urology as CT abdomen showed B/L hydronephrosis and hydroureters due to possible UVJ obstruction, and recommended bladder post-void scan, which showed about 315cc and failed attempts at Figueroa catheterization. At this time, he was cleared for discharge with outpatient f/up with Urology for possible ureteral stenting. - Time Spent with Patient Total time spent providing and/or coordinating discharge services: Greater than 30 minutes (40 min) - Constitutional Vitals: Temp Pulse Resp BP Pulse Ox 97.6 F 66 16 105/72 96 11/29/16 11:05 11/29/16 11:05 11/29/16 11:05 11/29/16 11:05 11/29/16 11:05 General appearance: Present: cooperative, A&O X 2 - Respiratory Respiratory exam: Present: CTAB. Absent: accessory muscle use, rales, rhonchi, wheezes - Cardiovascular Cardiovascular exam: Present: RRR, +S1, +S2. Absent: diastolic murmur, gallop, rubs, systolic murmur - GI/Abdominal GI/Abdominal exam: Present: normal bowel sounds, soft, no peritoneal signs. Absent: distended, tenderness
== END 2016-11-29 14:11 | disposition home or self-care (01) | DRG 694 ==
LOC: 2ANU 17:22 → EMEROO 17:22 → 2ANU 21:05
PROVIDERS: ADMIT Family Medicine; ATTEND Internal Medicine

== ENCOUNTER 2017-07-17 03:40 | Inpatient (IN) ==
--- NOTE | 2017-07-17 03:53 | Emergency Department Note ---
Disposition Clinical Impression: ART (acute kidney injury) Leukocytosis Qualifiers: Leukocytosis type: unspecified Qualified Code(s): D72.829 - Elevated white blood cell count, unspecified Altered mental status Qualifiers: Altered mental status type: unspecified Qualified Code(s): R41.82 - Altered mental status, unspecified Disposition: Admitted As Inpatient Condition: Fair Referrals: Unassigned,Provider [Non-Partnered Physician] - Forms: ED Satisfaction Letter Time of Disposition: 05:38 Altered Mental Status HPI - General Chief Complaint: ED Altered Mental Status Stated Complaint: unresponsive Time Seen by Provider: 07/17/17 03:42 Source: EMS Mode of arrival: EMS Limitations: no limitations Nursing Notes Reviewed: Yes Vital Signs Reviewed: Yes - History of Present Illness HPI Narrative: Patient is a 46-year-old male with unknown past medical history. He presents today due to altered mental status. EMS states that the called EMS due to finding the patient shaking when she woke up. He was altered, would not answer any questions. Vitals were stable during transport. Glucose was in the 100s. On presentation, patient is staring blankly, to get back with coarse breath sounds on the left. Would not follow any commands. He would blink eyes when fingers got close to eyes but otherwise was not moving any extremities. Smelled strongly of urine. - Related Data Home Medications Medication Instructions Recorded Confirmed Levothyroxine [Synthroid] 50 mcg PO DAILY 11/27/16 07/17/17 Sertraline [Zoloft] 100 mg PO DAILY 11/27/16 07/17/17 Tamsulosin [Flomax] 0.4 mg PO DAILY 11/27/16 07/17/17 raNITIdine HCl [Ranitidine HCl] 150 mg PO BID 11/27/16 07/17/17 Allergies Allergy/AdvReac Type Severity Reaction Status Date / Time codeine Allergy Rash Verified 01/14/17 11:17 Limitations: ROS unobtainable due to patients medical condition Past Medical History - Past Medical History Attestation: Yes The following information was validated with the patient. Source: patient Medical history: Reports: GERD, hyperlipidemia, hypertension, other Surgical history: Reports: no surgical history, other Psychiatric history: Reports: bipolar - Social History Smoking Status: Current every day smoker Smokeless Tobacco Status: No Alcohol use: Reports: none Drug use: Reports: none Physical Exam - General Limitations: altered mental status General appearance: alert - Head Head exam: atraumatic, normocephalic, normal inspection - Eye Eye exam: Present: normal appearance, PERRL, EOMI - ENT ENT exam: mucous membranes dry - Neck Neck exam: Present: normal inspection - Chest Chest inspection: Present: normal inspection, symmetric chest wall rise - Respiratory Respiratory exam: Present: other (coarse breath sounds right LL; tachypnic) - Cardiovascular Cardiovascular exam: Present: regular rate, normal rhythm, normal heart sounds - Abdominal Exam Abdominal exam: Present: soft, Non-Tender. Absent: tenderness, distention, guarding, rebound, rigidity - Extremities Exam Extremities exam: Present: normal inspection. Absent: full ROM - Neurological Exam Neurological exam: Present: alert, other (Limited exam. Will not follow any commands, not moving extremities. Eyes open, staring upwards. Will blink eyes when fingers get close, but will not move eyes otherwise. ) - Psychiatric Psychiatric exam: Present: normal affect, normal mood - Skin Skin exam: Present: warm, dry, intact, normal color Course Course Narrative: Patient tachycardic and tachypneic on presentation. Physical exam shows: Neuro exam is Limited. Will not follow any commands, not moving extremities. Eyes open, staring upwards. Will blink eyes when fingers get close, but will not move eyes otherwise. Coarse breath sounds on the right. Smells strongly of urine. 05:11 CT scan of the head was negative for any acute intracranial abnormality. Chest x-ray shows left basilar atelectasis but no other acute cardiopulmonary process. Labs show elevated white blood cell count, ART, UA shows UTI. Troponin negative. EKG shows sinus tachycardia with no acute ST elevation. With tachycardia, tachypnea, UTI, patient meet sepsis criteria. Will give rocephin 2g. Currently waiting on lactic level. Patient given 1 L of fluid so far, will add on additional 2L to meet 30ml/kg goal. Plan to admit for further care. Head CT 07/17/17 03:42 IMPRESSION: No acute intracranial abnormality. D/ / Kip Tarango MD / Kip Tarango MD Interpreting Provider: Kip Tarango MD Chest X-Ray 07/17/17 03:49 IMPRESSION: Left basilar atelectasis. Otherwise no acute cardiopulmonary process is identified. D/ / Gene Lopez MD / Gene Lopez MD Interpreting Provider: Gene Lopez MD Vital Signs Temperature 98.2 F 07/17/17 03:41 Pulse Rate 110 07/17/17 03:41 Respiratory Rate 28 07/17/17 03:41 Blood Pressure 122/69 07/17/17 03:41 O2 Sat by Pulse Oximetry 95 07/17/17 03:41 Temperature 98.2 F 07/17/17 03:41 Pulse Rate 130 07/17/17 05:08 Respiratory Rate 20 07/17/17 05:08 Blood Pressure 115/74 07/17/17 05:08 O2 Sat by Pulse Oximetry 98 07/17/17 05:08 Oxygen Delivery Oxygen Delivery Room Air Altered Mental Status - MDM Narrative Medical decision making narrative: CT scan of the head was negative for any acute intracranial abnormality. Chest x-ray shows left basilar atelectasis but no other acute cardiopulmonary process. Labs show elevated white blood cell count, ART, UA shows UTI. Troponin negative. EKG shows sinus tachycardia with no acute ST elevation. With tachycardia, tachypnea, UTI, patient meet sepsis criteria. Will give rocephin 2g. Currently waiting on lactic level. Patient given 1 L of fluid so far, will add on additional 2L to meet 30ml/kg goal. Plan to admit for further care. - Medical Records Medical records reviewed: Yes I reviewed the patient's medical records. - Lab Data Lab results reviewed: Yes I reviewed the patient's lab results. Result diagrams: 07/17/17 03:55 07/17/17 03:55 Lab Results 07/17/17 07/17/17 07/17/17 Range/Units 03:55 03:55 03:55 WBC 18.7 H (4.3-11.1) K/mcL RBC 4.77 (4.19-5.50) M/mcL Hgb 13.4 (12.9-16.9) g/dL Hct 40.1 (37.5-50.1) % MCV 84.1 (83.0-100.0) fL MCH 28.1 (28.0-33.3) pg MCHC 33.4 (31.6-35.5) g/dL RDW 15.2 H (11.5-14.5) % Plt Count 191 (140-400) K/mcL MPV 9.8 (9.4-12.4) fL Immature Gran % 0.5 (0-4) % Seg Neutrophils % 85.3 % Lymphocytes % 5.7 % Monocytes % 7.7 % Eosinophils % 0.6 % Basophils % 0.2 % Neutrophils # 15.9 H (1.6-8.9) K/mcL Lymphocytes # 1.1 (0.6-4.6) K/mcL Monocytes # 1.4 H (0.0-1.3) K/mcL Eosinophils # 0.1 (0.0-0.6) K/mcL Basophils # 0.0 (0.0-0.2) K/mcL PT (9.4-12.1) Seconds INR APTT (26.0-36.0) Seconds Sodium 137 (136-145) mEq/L Potassium 3.6 (3.5-4.5) mEq/L Chloride 108 (98-109) mEq/L Carbon Dioxide 18 L (19-29) mEq/L BUN 24 (8-26) mg/dL Creatinine 2.74 H (0.72-1.25) mg/dL Est GFR ( Amer) 30 L (> 60) Est GFR (Non-Af Amer) 25 L (> 60) BUN/Creatinine Ratio 9 (6-26) Glucose 109 H (70-99) mg/dL Calculated Osmolality 289 (280-300) Calcium 9.4 (8.6-10.8) mg/dL Phosphorus 1.7 L (2.3-4.7) mg/dL Magnesium 1.6 (1.6-2.6) mg/dL Total Bilirubin 0.6 (0.2-1.2) mg/dL Direct Bilirubin 0.3 (0.0-0.5) mg/dL Indirect Bilirubin 0.3 (0.0-1.2) mg/dL AST 9 (5-34) Units/L ALT 7 (0-55) Units/L Alkaline Phosphatase 139 H (38-126) Units/L Troponin I 0.00 (0-0.03) ng/mL Serum Total Protein 7.4 (6.0-8.3) g/dL Albumin 3.1 L (3.5-5.0) g/dL Globulin 4.3 H (2.4-3.5) g/dL Albumin/Globulin Ratio 0.7 L (1.1-2.2) Urine Color (Yellow) Urine Clarity (Clear) Urine pH (5.0-8.0) pH Units Ur Specific [place] (1.010-1.025) Urine Protein (Neg-Trace) mg/dL Urine Glucose (UA) (Normal) mg/dL Urine Ketones (Negative) mg/dL Urine Blood (Negative) Urine Nitrite (Negative) Urine Bilirubin (Negative) Urine Urobilinogen (Normal) mg/dL Ur Leukocyte Esterase (Negative) Urine Microscopic RBC (0-3) per hpf Urine Microscopic WBC (0-3) per hpf Ur Squamous Epith Cells (None-Few) per lpf Urine Bacteria (None-Few) per hpf Hyaline Casts (None-Few) per lpf 07/17/17 07/17/17 Range/Units 03:55 04:05 WBC (4.3-11.1) K/mcL RBC (4.19-5.50) M/mcL Hgb (12.9-16.9) g/dL Hct (37.5-50.1) % MCV (83.0-100.0) fL MCH (28.0-33.3) pg MCHC (31.6-35.5) g/dL RDW (11.5-14.5) % Plt Count (140-400) K/mcL MPV (9.4-12.4) fL Immature Gran % (0-4) % Seg Neutrophils % % Lymphocytes % % Monocytes % % Eosinophils % % Basophils % % Neutrophils # (1.6-8.9) K/mcL Lymphocytes # (0.6-4.6) K/mcL Monocytes # (0.0-1.3) K/mcL Eosinophils # (0.0-0.6) K/mcL Basophils # (0.0-0.2) K/mcL PT 12.9 H (9.4-12.1) Seconds INR 1.2 APTT 32.7 (26.0-36.0) Seconds Sodium (136-145) mEq/L Potassium (3.5-4.5) mEq/L Chloride (98-109) mEq/L Carbon Dioxide (19-29) mEq/L BUN (8-26) mg/dL Creatinine (0.72-1.25) mg/dL Est GFR ( Amer) (> 60) Est GFR (Non-Af Amer) (> 60) BUN/Creatinine Ratio (6-26) Glucose (70-99) mg/dL Calculated Osmolality (280-300) Calcium (8.6-10.8) mg/dL Phosphorus (2.3-4.7) mg/dL Magnesium (1.6-2.6) mg/dL Total Bilirubin (0.2-1.2) mg/dL Direct Bilirubin (0.0-0.5) mg/dL Indirect Bilirubin (0.0-1.2) mg/dL AST (5-34) Units/L ALT (0-55) Units/L Alkaline Phosphatase (38-126) Units/L Troponin I (0-0.03) ng/mL Serum Total Protein (6.0-8.3) g/dL Albumin (3.5-5.0) g/dL Globulin (2.4-3.5) g/dL Albumin/Globulin Ratio (1.1-2.2) Urine Color Yellow (Yellow) Urine Clarity Turbid A (Clear) Urine pH 6.0 (5.0-8.0) pH Units Ur Specific [place] 1.011 (1.010-1.025) Urine Protein 100 H (Neg-Trace) mg/dL Urine Glucose (UA) Normal (Normal) mg/dL Urine Ketones Negative (Negative) mg/dL Urine Blood Large H (Negative) Urine Nitrite Positive A (Negative) Urine Bilirubin Negative (Negative) Urine Urobilinogen Normal (Normal) mg/dL Ur Leukocyte Esterase Large H (Negative) Urine Microscopic RBC 50-100 H (0-3) per hpf Urine Microscopic WBC TNTC H (0-3) per hpf Ur Squamous Epith Cells Moderate H (None-Few) per lpf Urine Bacteria Many H (None-Few) per hpf Hyaline Casts None Seen (None-Few) per lpf - Radiology Data Radiology results reviewed: Yes I reviewed the patient's radiology results. Head CT 07/17/17 03:42 IMPRESSION: No acute intracranial abnormality. D/ / Kip Tarango MD / Kip Tarango MD Interpreting Provider: Kip Tarango MD Chest X-Ray 07/17/17 03:49 IMPRESSION: Left basilar atelectasis. Otherwise no acute cardiopulmonary process is identified. D/ / Gene Lopez MD / Gene Lopez MD Interpreting Provider: Gene Lopez MD - EKG Data EKG attestation: Yes I reviewed and interpreted this EKG. EKG results narrative: 07/17/2017 at 03:50. Sinus tachycardia. Rate 132. CT 136. QRS 80. QTC 365. Normal axis. No acute ST elevation or depression. EKG #2 done 07/17/2017 at 04:25. Again, sinus tachycardia. Rate 125. CT 142. QRS 82. QTC 363. Normal axis, no acute ST elevation or depression. TPA Checklist - LKW: 3-4.5 hrs Add. Warnings/Precautions Patient/family understanding: The patient/family members have been counseled and understood the risk, benefit , and alternatives of treatment. S.B.A.R. - [email or web address] Situation: Demographics, MOA Background: Presenting Complaint, Relevant PMH, Meds, & Allergies Assessment: Vital Signs, Course and respsone to treatment, Exam Concerns, Patient/Family Expectation, Pertinant Lab Results, Outstanding Labs Recommendation: Barrier(s) to disposition, Recommendation based on pending studies, treatments, or consults S.B.A.RChayito Report Given to: Dr. Logan Sigala Repor Time: 05:50 Attestation Statement - Attestation Attestation: I examined this patient and my medical decision-making was reviewed with the Resident Physician. I agree with the documented findings, disposition and treatment plan as described except to the extent set forth below. Patient to ED unresponsive. History provided by EMS. They state called because he was shaking and unresponsive in bed. When they found him he is unresponsive but his hands were shaking. On arrival here patient is laying in bed. Breathing heavily. Eyes open. Follows basic commands such as hand squeeze. Non-verbal. Plan. Unclear when his last normalizes is no family present at this time. CT head. Cardiac workup. Question if the patient had seizure.
[2017-07-17 04:06] LABS: Basophils % 0.2 %; Eosinophils # 0.1 K/mcL (0.0-0.6); Eosinophils % 0.6 %; Hematocrit 40.1 % (37.5-50.1); Hemoglobin 13.4 g/dL (12.9-16.9); Immature Granulocytes % 0.5 % (0-4); Lymphocytes # 1.1 K/mcL (0.6-4.6); Lymphocytes % 5.7 %; Mean Corpuscular HGB Conc 33.4 g/dL (31.6-35.5); Mean Corpuscular Hemoglobin 28.1 pg (28.0-33.3); Mean Corpuscular Volume 84.1 fL (83.0-100.0); Mean Platelet Volume 9.8 fL (9.4-12.4); Monocytes # 1.4 K/mcL (0.0-1.3); Monocytes % 7.7 %; Neutrophils # 15.9 K/mcL (1.6-8.9); Platelet Count 191 K/mcL (140-400); Red Blood Count 4.77 M/mcL (4.19-5.50); Red Cell Distribution Width 15.2 % (11.5-14.5); Segmented Neutrophils % 85.3 %
[2017-07-17 04:19] LABS: Calcium 9.4 mg/dL (8.6-10.8); Magnesium 1.6 mg/dL (1.6-2.6); Phosphorous 1.7 mg/dL (2.3-4.7); Potassium 3.6 mEq/L (3.5-4.5)
[2017-07-17 05:02] LABS: Bilirubin,Urine Negative (Negative); Blood,Urine Large (Negative); Clarity,Urine Turbid (Clear); Color,Urine Yellow (Yellow); Glucose,Urine (UA) Normal (Normal); Ketones,Urine Negative (Negative); Leukocyte Esterase,Urine Large (Negative); Nitrite,Urine Positive (Negative); Protein,Urine 100 mg/dL (Neg-Trace); Specific Gravity,Urine 1.011 (1.010-1.025); Urobilinogen,Urine Normal (Normal)
[2017-07-17 05:04] LABS: Bacteria,Urine Many per hpf (None-Few); Hyaline Casts,Urine None Seen per lpf (None-Few); RBC,Urine 50-100 per hpf (0-3); Squamous Epithelial Cell,Urine Moderate per lpf (None-Few); WBC,Urine TNTC per hpf (0-3)
[2017-07-17 05:05] LABS: INR 1.2; Prothrombin Time 12.9 Seconds (9.4-12.1)
[2017-07-17 05:07] LABS: Albumin 3.1 g/dL (3.5-5.0); Albumin/Globulin Ratio 0.7 (1.1-2.2); Bilirubin,Direct 0.3 mg/dL (0.0-0.5); Bilirubin,Indirect 0.3 mg/dL (0.0-1.2); Bilirubin,Total 0.6 mg/dL (0.2-1.2); Globulin 4.3 g/dL (2.4-3.5); Total Protein 7.4 g/dL (6.0-8.3)
[2017-07-17 05:08] LABS: Activated Partial Thrombo Time 32.7 Seconds (26.0-36.0)
[2017-07-17] MEDS ORDERED: 0.9 % Sodium Chloride 1,000 ML IVC ONE ×2 (05:10→05:13)
[2017-07-17] MEDS ORDERED: Ondansetron 4 MG/2 ML VIAL IVP PRN (08:57)
[2017-07-17] MEDS ORDERED: Naloxone 0.4 MG/ML INJ IVP PRN (08:57)
[2017-07-17] MEDS ORDERED: Acetaminophen 325 MG TABLET PO PRN (08:57)
[2017-07-17] MEDS ORDERED: Sodium Phosphate 30 MMOL in D5% in Water 100 ML IVPB ONE (08:59)
[2017-07-17] MEDS ORDERED: *HR* LORazepam 2 MG/ML VIAL IVP PRN (09:00)
[2017-07-17] MEDS: 0.9 % Sodium Chloride 1,000 ML IVC SCH (09:53)
--- NOTE | 2017-07-17 10:16 | Internal Med History&Physical ---
Date of Encounter: 07/17/17 Time of Encounter: 08:40 Assessment and Plan (1) Seizure Current visit: Yes Status: Acute likely related to underlying metabolic and infectious etiology- metabolic acidosis, ART, sepsis and UTI; check urine drug screen and continue to treat underlying conditions; will use PRN IV Ativan for repeat seizure-like activity; CT head showed no acute abnormality; fall and seizure precautions. (2) UTI (urinary tract infection) Current visit: Yes Status: Acute Patient likely has BPH with symptoms; will place Figu[place] and monitor urine output closely. Urinalysis shows turbid urine with positive nitrite, large leukocyte esterase, TNTC WBC, many bacteria; f/up urine culture and continue IV Rocephin for now; Qualifiers: Urinary tract infection type: acute cystitis Hematuria presence: without hematuria Qualified Code(s): N30.00 - Acute cystitis without hematuria (3) ART (acute kidney injury) Current visit: Yes Status: Acute likely related to UTI; to exclude urinary retention due to h/o- BPH; check renal and bladder ultrasound; continue IV hydration and monitor serum creatinine and bicarbonate closely; (4) Sepsis Current visit: Yes Status: Acute patient presented with leukocytosis, tachycardia, ART, and had fever in the hospital; lactate noted to be normal; continue IV hydration, monitor vitals closely; IV antibiotics and f/up blood and urine cultures as above; Qualifiers: Sepsis type: sepsis due to unspecified organism Qualified Code(s): A41.9 - Sepsis, unspecified organism (5) Essential hypertension Current visit: Yes Status: Chronic BP noted to be well-controlled; resume home meds; (6) Tobacco abuse Current visit: Yes Status: Chronic patient is not motivated to quit smoking at this time; declines Nicotine transdermal patch; (7) Hyperlipidemia Current visit: Yes Status: Chronic Qualifiers: Hyperlipidemia type: unspecified Qualified Code(s): E78.5 - Hyperlipidemia , unspecified (8) Hypothyroidism Current visit: Yes Status: Chronic resume Levothyroxine; Qualifiers: Hypothyroidism type: unspecified Qualified Code(s): E03.9 - Hypothyroidism , unspecified (9) Bipolar disorder Current visit: Yes Status: Chronic Qualifiers: Active/Remission status: remission status unspecified Qualified Code(s): F31.9 - Bipolar disorder, unspecified (10) Chronic kidney disease Current visit: Yes Status: Chronic Qualifiers: Chronic kidney disease stage: stage 3 (moderate) Qualified Code(s): N18.3 - Chronic kidney disease, stage 3 (moderate) Internal Medicine - H&P: HPI Chief complaint: Seizure-like activity Admitted From: Emergency Dept Plans for Post Hospital Care: Home History of present illness: Mr. Ferguson is a 46 year old male with h/o- bipolar disorder, HTN, CKD, who was brought in by his after noticing seizure-like activity last night during sleep. Patient does not recall the reason for admission but currently reports vague abdominal pain and thinks it is hunger pain. NO reported nausea, vomiting , headache, blurred vision, dysarthria, dysphagia, focal weakness or paresthesias. No h/o-seizures or drug use per patient. However he provides only limited history. He was noted to be altered in the ER, staring into space and unable to answer anything. Past Med Surg Social Fam HX - Past Medical History Medical history: GERD, hyperlipidemia, hypertension, renal disease, thyroid disease, other Psychiatric history: anxiety, bipolar, depression - Past Surgical History Surgical History: other (urological procedure? urethral stricture vs prostatomegaly) - Social History Smoking Status: Current every day smoker Packs per day: 1 Smokeless Tobacco Status: No Alcohol use: none Drug use: none Occupational status: disabled Current living situation: Home, With Family Activity Level: Independent ambulation Recent Out of Country Travel Within the Last 8 Weeks: No Exposure or Possible Exposure to Illness During Travel: No - Family History Mother Living Status: Father Family Member Ethnicity: Non- Living Status: Still Living Internal Medicine - H&P: Meds Levothyroxine [Synthroid] 50 mcg PO DAILY 11/27/16 [History] Sertraline [Zoloft] 100 mg PO DAILY 11/27/16 [History] Tamsulosin [Flomax] 0.4 mg PO DAILY 11/27/16 [History] raNITIdine HCl [Ranitidine HCl] 150 mg PO BID 11/27/16 [History] 3 Allergy/AdvReac Type Severity Reaction Status Date / Time codeine Allergy Rash Verified 01/14/17 11:17 All Systems PM: A 10-system review of systems was performed and is negative for pertinent findings except as documented above in the HPI. - Constitutional Constitutional: chills - EENT Eyes: no change in vision, no discharge, no pain, no photophobia Ears: no ear discharge, no ear pain, no tinnitus Nose, mouth and throat: no dysphagia, no nasal discharge, no neck pain, no sore throat - Cardiovascular Cardiovascular ROS IM: no chest pain, no diaphoresis, no dyspnea, no lightheadedness, no palpitations, no syncope - Respiratory Respiratory: no cough, no dyspnea, no wheezing, no excessive phlegm production - Gastrointestinal Gastrointestinal: abdominal pain - Musculoskeletal Musculoskeletal ROS IM: no numbness, no tingling - Integumentary Integumentary IM: no rash, no unusual bruising - Neurological Neurological ROS: abnormal movements, behavioral changes, confusion, convulsions - Hematologic/Lymphatic Hematologic/Lymphatic: no easy bruising - Constitutional Vitals: Temp Pulse Resp BP Pulse Ox 100.8 F H 108 16 101/67 96 07/17/17 07:23 07/17/17 07:23 07/17/17 07:23 07/17/17 07:23 07/17/17 07:23 General appearance: Present: A&O X 2, answers questions appropriately - Eye Eye exam: Present: PERRL, conjuntiva pink, sclera anicteric Pupils: Present: PERRL - Neck Neck exam general surgery: Present: supple, trachea midline. Absent: lymphadenopathy - Respiratory Respiratory exam: Present: decreased breath sounds (at left base), CTAB. Absent : accessory muscle use, rales, rhonchi, wheezes - Cardiovascular Cardiovascular exam: Present: RRR, +S1, +S2, tachycardia. Absent: diastolic murmur, gallop, rubs, systolic murmur - GI/Abdominal GI/Abdominal exam: Present: normal bowel sounds, soft, no peritoneal signs. Absent: distended, tenderness - Extremities Exam Extremities exam: Present: full ROM, warm, radial pulses palpable and symmetrical. Absent: calf tenderness, cyanotic, pedal edema - Neurological Exam Neurological exam: Present: CN II-XII intact, oriented X3, no focal deficits. Absent: pronater drift, facial droop, speech deficit - Skin Skin exam: Present: dry, intact Internal Med - H&P Results - Labs CBC & Chem 7: 07/17/17 03:55 07/17/17 03:55 Labs: Cardiac Enzymes 09/10/17 Range/Units 08:34 Troponin I 0.00 (0-0.03) ng/mL - EKG Data -: EKG Interpreted by Myself EKG shows normal: sinus rhythm Rate: tachycardia
[2017-07-17 10:17] LABS: Amphetamine Screen,Urine Negative ng/mL (Cutoff=1000); Barbiturate Screen,Urine Negative ng/mL (Cutoff=200); Benzodiazepines Screen,Urine Negative ng/mL (Cutoff=200); Cannabinoid Screen,Urine Negative ng/mL (Cutoff = 50); Cocaine Screen,Urine Negative ng/mL (Cutoff= 300); Opiate Screen,Urine Negative ng/mL (Cutoff=300); Phencyclidine Screen,Urine Negative ng/mL (Cutoff=25)
[2017-07-17] MEDS: *HR* Heparin 5,000 UNIT/ML VIAL SQ SCH (17:11)
[2017-07-18] MEDS: 0.9 % Sodium Chloride 1,000 ML IVC SCH (04:19)
[2017-07-18 05:21] LABS: Basophils % 0.3 %; Eosinophils # 0.2 K/mcL (0.0-0.6); Eosinophils % 1.8 %; Hematocrit 37.3 % (37.5-50.1); Hemoglobin 11.8 g/dL (12.9-16.9); Immature Granulocytes % 0.4 % (0-4); Lymphocytes # 1.3 K/mcL (0.6-4.6); Lymphocytes % 9.5 %; Mean Corpuscular HGB Conc 31.6 g/dL (31.6-35.5); Mean Corpuscular Hemoglobin 27.5 pg (28.0-33.3); Mean Corpuscular Volume 86.9 fL (83.0-100.0); Mean Platelet Volume 9.8 fL (9.4-12.4); Monocytes # 1.1 K/mcL (0.0-1.3); Monocytes % 8.2 %; Neutrophils # 10.9 K/mcL (1.6-8.9); Platelet Count 185 K/mcL (140-400); Red Blood Count 4.29 M/mcL (4.19-5.50); Red Cell Distribution Width 15.3 % (11.5-14.5); Segmented Neutrophils % 79.8 %
[2017-07-18 05:34] LABS: Calcium 9.3 mg/dL (8.6-10.8); Magnesium 1.9 mg/dL (1.6-2.6); Potassium 3.8 mEq/L (3.5-4.5)
[2017-07-18 05:38] LABS: Phosphorous 3.5 mg/dL (2.3-4.7)
[2017-07-18] MEDS: *HR* Heparin 5,000 UNIT/ML VIAL SQ SCH ×2 (06:23→17:06)
[2017-07-18] MEDS: Nicotine 21 MG PATCH.TD24 TD SCH (11:33)
--- NOTE | 2017-07-18 13:49 | Internal Med Progress Note ---
Date of Encounter: 07/18/17 Time of Encounter: 10:15 - Assessment and plan (1) Sepsis Current Visit: Yes Status: Acute Assessment and plan: Leukocytosis improving. Cultures have so far been negative. Treating for urinary tract infection with empirical antibiotics. Will complete short course of antibiotics if cultures continue to remain negative. Moderate risk for complications. Qualifiers: Sepsis type: sepsis due to unspecified organism Qualified Code(s): A41.9 - Sepsis, unspecified organism (2) ART (acute kidney injury) Current Visit: Yes Status: Acute Assessment and plan: Acute kidney injury versus progression of chronic kidney disease. Creatinine improved to 2.45 today. Renal ultrasound pending. (3) Chronic kidney disease Current Visit: Yes Status: Chronic Assessment and plan: Patient with history of chronic kidney disease stage III. Creatinine 2.45 today. Baseline creatinine around 1.8 to 1.9. Last set of labs done in January. He could have progression of his chronic kidney disease since then. Qualifiers: Chronic kidney disease stage: stage 3 (moderate) Qualified Code(s): N18.3 - Chronic kidney disease, stage 3 (moderate) (4) Essential hypertension Current Visit: Yes Status: Chronic Assessment and plan: Blood pressure is well controlled. No changes at this time (5) Hypothyroidism Current Visit: Yes Status: Chronic Assessment and plan: Will resume levothyroxine. Qualifiers: Hypothyroidism type: unspecified Qualified Code(s): E03.9 - Hypothyroidism , unspecified (6) Seizure Current Visit: Yes Status: Suspected Assessment and plan: No new episodes of seizure-like activity. Will get EEG. (7) Tobacco abuse Current Visit: Yes Status: Chronic Assessment and plan: Started on nicotine patch. (8) UTI (urinary tract infection) Current Visit: Yes Status: Acute Assessment and plan: On ceftriaxone. Urine cultures are negative so far. Qualifiers: Urinary tract infection type: acute cystitis Hematuria presence: without hematuria Qualified Code(s): N30.00 - Acute cystitis without hematuria - Subjective Interval history: Patient is asleep but easily awakes. Wants to go out to smoke cigarettes. Denies any pain at this time. No dysuria. No fever or chills. Tolerating diet well. - Constitutional Vitals: Temp Pulse Resp BP Pulse Ox 97.8 F 94 18 106/76 96 07/18/17 03:33 07/18/17 11:30 07/18/17 03:33 07/18/17 03:33 07/18/17 03:33 General appearance: Present: cooperative, A&O X 2, no acute distress, answers questions appropriately - Neck Neck exam general surgery: Present: supple, trachea midline. Absent: lymphadenopathy - Respiratory Respiratory exam: Present: CTAB. Absent: accessory muscle use, rales, rhonchi, wheezes - Cardiovascular Cardiovascular exam: Present: RRR, +S1, +S2. Absent: diastolic murmur, gallop, rubs, systolic murmur - GI/Abdominal GI/Abdominal exam: Present: normal bowel sounds, soft, no peritoneal signs. Absent: distended, tenderness - Extremities Exam Extremities exam: Present: warm, radial pulses palpable and symmetrical. Absent : calf tenderness, cyanotic, pedal edema - Neurological Exam Neurological exam: Present: alert, no focal deficits, strengths equal and symetr throughout. Absent: facial droop, speech deficit Internal Medicine: Result - Labs CBC & Chem 7: 07/18/17 05:05 07/18/17 05:05 Labs: Short CBC 07/18/17 Range/Units 05:05 WBC 13.6 H (4.3-11.1) K/mcL Hgb 11.8 L D (12.9-16.9) g/dL Hct 37.3 L (37.5-50.1) % Plt Count 185 (140-400) K/mcL Neutrophils # 10.9 H (1.6-8.9) K/mcL BMP 07/18/17 05:05 Sodium 142 Potassium 3.8 Chloride 112 H Carbon Dioxide 22 BUN 23 Creatinine 2.45 H Glucose 99 Calcium 9.3 Cardiac Enzymes 07/17/17 07/17/17 Range/Units 14:32 21:00 Troponin I 0.00 0.00 (0-0.03) ng/mL - ABG Interpretation ABG results: PT/INR, D-dimer PT 12.9 Seconds (9.4-12.1) H 07/17/17 03:55 Consult Discharge Plan - Plan Referrals: Andrew Francisco Jr, MD [Primary Care Provider] - (SENT WEB REQUEST ON 07-18-17 @ [id number])
--- NOTE | 2017-07-18 17:40 | Electrocardiograph Report ---
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
--- NOTE | 2017-07-18 18:33 | EEG/EMG/Oth Biometrics Report ---
EEG Procedure Report Date of procedure: 07/18/17 EEG Procedure: Routine EEG Procedure Note: This EEG was acquired with a standard international 10-20 electrode placement system. The background activity during this tracing was characterized by low amplitude fast activity. The background activity was reactive to eye openings. Sleep stages were characterized by the presence of background slowing, presence of vertex waves, K complexes and sleep spindles. There are no electrographic seizures identified during this tracing. No epileptiform discharges and focal slowing noted during this recording. Photic stimulation produced no abnormalities. Hyperventilation procedure was not performed during the study. Impression: This is essentially normal awake and asleep EEG. Clinical correlation: Normal EEGs, however, do not exclude epilepsy. Clinical correlation is advised.
--- NOTE | 2017-07-18 18:47 | Neurology - Consult Note ---
Date of Encounter: 07/18/17 Time of Encounter: 18:42 Assessment and Plan (1) Seizure Current Visit: Yes Status: Suspected Patient with no previous history of seizure who developed witnessed seizure during sleep. Episode is likely provoked event since there does appear to be acute renal failure and elevated WBC. Routine EEG showed no electrographic seizure, no epileptiform discharges and no focal slowing Background activity is normal. Will not recommend antiepileptic therapy at this time. However will certainly like to obtain MRI of brain without contrast to rule out intracranial abnormality (2) Encephalopathy acute Current Visit: Yes Status: Acute Patient appears encephalopathic, characterized by mild slurry speech and confusion without any focal findings. This is likely related hi ongoing medical conditions especially the renal failure. Per his medical records, he does have listed incontinence and enureses so i would check MRI of cervical spine as well since his DTRs are quite brisk. Certainly this could be the result of current encephalopathy. History of Present Illness Chief complaint: witnessed seizure HPI: Mr. Ferguson is a 46 year old male with PMH significant for bipolar disorder, KARRIE, enureses, GERD, tobacco abuse, incontinence who was brought in hospital due to witnessed seizure during sleep. witnessed the seizure. She is not available for interview. Patient has no recollection of the event. The patient denies previous history of seizure disorder. Patient states that he did not feel that when going to bed that night with seizure occurred. No tongue biting was reported. Patient does have elevated creatinine indicating presence of the renal insufficiency along with elevated the wBC. Denies fever or headaches. Patient does appear to have some dysarthria but not sure what his baseline was. EEG records are reviewed, was read essentially a normal awake and asleep EEG. Patient initial CT of the head showed no acute intracranial abnormality. Past Med Surg Social Fam HX - Past Medical History Medical history: GERD, hyperlipidemia, hypertension, renal disease, thyroid disease, other Psychiatric history: anxiety, bipolar, depression - Past Surgical History Surgical History: other (urological procedure? urethral stricture vs prostatomegaly) - Social History Smoking Status: Current every day smoker Packs per day: 1 Smokeless Tobacco Status: No Alcohol use: none Drug use: none - Family History Mother Living Status: Father Family Member Ethnicity: Non- Living Status: Still Living Medications and Allergies Levothyroxine [Synthroid] 50 mcg PO DAILY 11/27/16 [History] Sertraline [Zoloft] 100 mg PO DAILY 11/27/16 [History] Tamsulosin [Flomax] 0.4 mg PO DAILY 11/27/16 [History] raNITIdine HCl [Ranitidine HCl] 150 mg PO BID 11/27/16 [History] 3 Allergy/AdvReac Type Severity Reaction Status Date / Time codeine Allergy Rash Verified 01/14/17 11:17 All Systems: A 10-system review of systems was performed and is negative for pertinent findings except as documented above in the HPI. Physical Examination - Vital Signs Vital Signs: Initial Vital Signs Temp Pulse Resp BP Pulse Ox 98.2 F 110 28 122/69 95 07/17/17 03:41 07/17/17 03:41 07/17/17 03:41 07/17/17 03:41 07/17/17 03:41 - Constitutional General appearance: comfortable - Neurologic Sensorimotor examination: intact Detailed motor examination: grossly full strength in all extremities Motor examination - right side: 5/5: deltoids, biceps, triceps, wrist flexion, wrist extension, gear roller, hip flexors, tibialis Anterior, quadriceps, toe extension (EHL), plantarflexion Motor examination - left side: 5/5: deltoids, biceps, triceps, wrist flexion, wrist extension, hip flexors, gear roller, quadriceps, tibialis Anterior, toe extension (EHL), plantarflexion Detailed sensory examination: intact Posture: other (no nuchal rigidity. ) Reflexes: Biceps: 3+, Triceps: 3+, Brachioradialis: 3+, Patella: 3+, Achilles: 3 + Mental Status Examination: awake, alert, oriented to person, oriented to place, oriented to time, follows commands appropriately, answers questions appropriately, no agnosia, no aphasia, no aproxia Cranial nerve examination: PERRL, EOMI, visual harmon intact, corneal reflexes brisk symmetrically, sensory to face intact, mastication intact, no facial asymmetry is present, no dysarthria, hearing is intact symmetrically, soft palate elevates bilaterally upon phonation, gag reflex intact, flexes SCM and trapezius muscles symmetrically with full power, tongue protrudes midline, no atrophy or facial fasiculations present Results - Laboratory Findings CBC and BMP: 07/18/17 05:05 07/18/17 05:05 Abnormal lab findings: Abnormal lab results WBC 13.6 K/mcL (4.3-11.1) H 07/18/17 05:05 Hgb 11.8 g/dL (12.9-16.9) L D 07/18/17 05:05 Hct 37.3 % (37.5-50.1) L 07/18/17 05:05 MCH 27.5 pg (28.0-33.3) L 07/18/17 05:05 RDW 15.3 % (11.5-14.5) H 07/18/17 05:05 Neutrophils # 10.9 K/mcL (1.6-8.9) H 07/18/17 05:05 PT 12.9 Seconds (9.4-12.1) H 07/17/17 03:55 Chloride 112 mEq/L (98-109) H 07/18/17 05:05 Creatinine 2.45 mg/dL (0.72-1.25) H 07/18/17 05:05 Est GFR ( Amer) 35 (> 60) L 07/18/17 05:05 Est GFR (Non-Af Amer) 28 (> 60) L 07/18/17 05:05 Alkaline Phosphatase 139 Units/L (38-126) H 07/17/17 03:55 Albumin 3.1 g/dL (3.5-5.0) L 07/17/17 03:55 Globulin 4.3 g/dL (2.4-3.5) H 07/17/17 03:55 Albumin/Globulin Ratio 0.7 (1.1-2.2) L 07/17/17 03:55 Urine Clarity Turbid (Clear) A 07/17/17 04:05 Urine Protein 100 mg/dL (Neg-Trace) H 07/17/17 04:05 Urine Blood Large (Negative) H 07/17/17 04:05 Urine Nitrite Positive (Negative) A 07/17/17 04:05 Ur Leukocyte Esterase Large (Negative) H 07/17/17 04:05 Urine Microscopic RBC 50-100 per hpf (0-3) H 07/17/17 04:05 Urine Microscopic WBC TNTC per hpf (0-3) H 07/17/17 04:05 Ur Squamous Epith Cells Moderate per lpf (None-Few) H 07/17/17 04:05 Urine Bacteria Many per hpf (None-Few) H 07/17/17 04:05 Consult Discharge Plan - Plan Referrals: Andrew Francisco Jr, MD [Primary Care Provider] - (SENT WEB REQUEST ON 07-18-17 @ 1206)
[2017-07-19] MEDS: *HR* Heparin 5,000 UNIT/ML VIAL SQ SCH (06:22)
[2017-07-19 07:38] LABS: Calcium 9.6 mg/dL (8.6-10.8); Potassium 4.2 mEq/L (3.5-4.5)
[2017-07-19] MEDS: Nicotine 21 MG PATCH.TD24 TD SCH (09:22)
[2017-07-19 11:12] VITALS: BP 115/85
--- NOTE | 2017-07-19 11:40 | Physician Discharge Referral ---
Home Health/Hosp Referral Info Transfer to: Home Health Attending Provider: Geremias Greenfield MD Provider in Charge Post Discharge: PCP - Diagnosis (1) UTI (urinary tract infection) Status: Acute (2) ART (acute kidney injury) Status: Acute (3) Sepsis Status: Acute (4) Seizure Status: Suspected (5) Bipolar disorder Status: Chronic - Respiratory Orders Smoking Cessation: Smoking cessation has been advised. For more information, call the [place] [employer] Quit Line at 8-196-EWIJ-NOW. - Transfer Medications Home Medications: Levothyroxine [Synthroid] 50 mcg PO DAILY 11/27/16 [History] Sertraline [Zoloft] 100 mg PO DAILY 11/27/16 [History] Tamsulosin [Flomax] 0.4 mg PO DAILY 11/27/16 [History] raNITIdine HCl [Ranitidine HCl] 150 mg PO BID 11/27/16 [History] Allergies/Adverse Reactions: 3 Allergy/AdvReac Type Severity Reaction Status Date / Time codeine Allergy Rash Verified 01/14/17 11:17 Certification: Further, I certify that my clinical findings support that this patient is homebound (i.e. absences from home require considerable and taxing effort and are for medical reasons or orthodoxy services or infrequently or short duration when for other reasons) because: Homebound Reason: Patient requires assistance of a person or device to safely leave home Attestation: My signature below is to certify that this patient is under my care and that I, or nurse practitioner, or a physician's web assistant working with me, has a face-to -face encounter with this patient.
--- NOTE | 2017-07-19 13:36 | Discharge Summary ---
Date of Encounter: 07/19/17 Time of Encounter: 13:32 - Discharge Diagnosis (1) UTI (urinary tract infection) Priority: Primary Status: Acute Qualifiers: Urinary tract infection type: acute cystitis Hematuria presence: without hematuria Qualified Code(s): N30.00 - Acute cystitis without hematuria (2) ART (acute kidney injury) Priority: Secondary Status: Acute (3) Sepsis Priority: Secondary Status: Acute Qualifiers: Sepsis type: sepsis due to unspecified organism Qualified Code(s): A41.9 - Sepsis, unspecified organism (4) Seizure Priority: Secondary Status: Suspected (5) Bipolar disorder Priority: Secondary Status: Chronic Qualifiers: Active/Remission status: remission status unspecified Qualified Code(s): F31.9 - Bipolar disorder, unspecified - Discharge Medications Prescriptions: Cefuroxime PO [Ceftin] 500 mg PO Q12HR #20 tablet Home Medications: Levothyroxine [Synthroid] 50 mcg PO DAILY 11/27/16 [History] Sertraline [Zoloft] 100 mg PO DAILY 11/27/16 [History] Tamsulosin [Flomax] 0.4 mg PO DAILY 11/27/16 [History] raNITIdine HCl [Ranitidine HCl] 150 mg PO BID 11/27/16 [History] Cefuroxime PO [Ceftin] 500 mg PO Q12HR #20 tablet 07/19/17 [Rx] Nicotine Patch [Nicoderm] 21 mg TD DAILY 07/19/17 [Rx] Allergies/Adverse Reactions: 3 Allergy/AdvReac Type Severity Reaction Status Date / Time codeine Allergy Rash Verified 01/14/17 11:17 Procedures/tests Complete & Pending: Procedures Performed prior 72 hours Category Date Time Status US retroperitoneal comp [US] Routine Exams 07/18/17 13:30 Completed MR cervical spine wo con [MR] Routine MRI 07/18/17 18:56 Completed MR head/brain wo con [MR] Routine MRI 07/18/17 18:55 Completed Date of admission: 07/17/17 08:57 Primary care physician: Andrew Francisco Jr, MD Consults: 07/18/17 16:07 Consult to Interpret Exam [CONS] Routine Consulting Provider: Kalpana Neil Consult to Interpret Exam: Interpret EEG Discharging clinician: Tessie Greenfield Anticipated date of discharge: 07/19/17 - Patient Status Disposition: Home Health Service Condition: Fair Overall status at discharge: patient is progressing back to baseline - Discharge Instructions Instructions: Cefuroxime (By mouth), Acute Kidney Injury (DC) Follow Up With: Marquita Gann CNP [Partnered Physician] - 07/26/17 10:30 am - Diet and Activity Activity: resume usual activities as tolerated Diet: advance to your usual diet Hospital course: Mr. Ferguson is a 46 year old male admitted for confusion. Apparently per nursing he has MRDD. He was diagnosed with UTI. IV reocephin started. His WBC has come down and he remains asymptomatic and hemodynimically stable. He will be continued on Ceftin. He also had seizure and his EEG/MRI brain findings were discussed with neurology. Dr Neil will see him in office but no new medicine for now. Suspect seizure was secondary to infection/encephalopathy. He has underlying stage III CKD and his creatnine was higher than his baseline. He is 2 liter positive and his creatinine is slowly coming down. Chcek BMP 2 x week and follow results with PCP. He was offered to stay another day but he declined. He was also asked to qut somking and he declined. Risk/Opitions/ Conswquences explained and discuss with nurses to communicate with family. He will be discharged now. - Time Spent with Patient Total time spent providing and/or coordinating discharge services: Greater than 30 minutes - Constitutional Vitals: Temp Pulse Resp BP Pulse Ox 97.4 F L 89 18 115/85 97 07/19/17 11:10 07/19/17 11:10 07/19/17 11:10 07/19/17 11:10 07/19/17 11:10 General appearance: Present: cooperative, A&O X 2, no acute distress, answers questions appropriately - Head Head exam: Present: atraumatic, normocephalic - Eye Eye exam: Present: PERRL, conjuntiva pink, sclera anicteric Pupils: Present: PERRL - Neck Neck exam general surgery: Present: supple, trachea midline. Absent: lymphadenopathy - Respiratory Respiratory exam: Present: CTAB. Absent: accessory muscle use, rales, rhonchi, wheezes - Cardiovascular Cardiovascular exam: Present: RRR, +S1, +S2. Absent: diastolic murmur, gallop, rubs, systolic murmur - GI/Abdominal GI/Abdominal exam: Present: normal bowel sounds, soft, no peritoneal signs. Absent: distended, tenderness - Extremities Exam Extremities exam: Present: warm, radial pulses palpable and symmetrical. Absent : calf tenderness, cyanotic, pedal edema - Neurological Exam Neurological exam: Present: CN II-XII intact, oriented X3, no focal deficits. Absent: pronater drift, facial droop, speech deficit - Skin Skin exam: Present: dry, intact
== END 2017-07-19 15:01 | disposition home health service (06) | DRG 871 ==
LOC: EMEROO 03:40 → 2NNU 03:40
PROVIDERS: ADMIT Hospitalist; ATTEND Internal Medicine

== ENCOUNTER 2018-04-11 12:09 | Observation (INO) ==
[2018-04-11] MEDS ORDERED: Aspirin 81 MG TAB.CHEW PO ONE (12:18)
[2018-04-11 12:58] LABS: Basophils % 0.3 %; Eosinophils # 0.1 K/mcL (0.0-0.6); Hematocrit 46.2 % (37.5-50.1); Hemoglobin 16.1 g/dL (12.9-16.9); Immature Granulocytes % 0.3 % (0-4); Lymphocytes # 1.9 K/mcL (0.6-4.6); Lymphocytes % 21.9 %; Mean Corpuscular HGB Conc 34.8 g/dL (31.6-35.5); Mean Corpuscular Hemoglobin 29.4 pg (28.0-33.3); Mean Corpuscular Volume 84.5 fL (83.0-100.0); Monocytes # 0.8 K/mcL (0.0-1.3); Neutrophils # 5.9 K/mcL (1.6-8.9); Platelet Count 205 K/mcL (140-400); Red Blood Count 5.47 M/mcL (4.19-5.50); Segmented Neutrophils % 67.5 %
[2018-04-11 13:05] LABS: INR 1.1; Prothrombin Time 11.5 Seconds (9.4-12.1)
[2018-04-11 13:08] LABS: Activated Partial Thrombo Time 41.6 Seconds (26.0-36.0)
[2018-04-11 13:23] LABS: Acetaminophen < 10 mcg/mL (10-20); Amphetamine Screen,Urine Negative ng/mL (Cutoff=1000); Barbiturate Screen,Urine Negative ng/mL (Cutoff=200); Benzodiazepines Screen,Urine Negative ng/mL (Cutoff=200); Cannabinoid Screen,Urine Negative ng/mL (Cutoff = 50); Cocaine Screen,Urine Negative ng/mL (Cutoff= 300); Ethanol < 10 mg/dL (Less than 10); Opiate Screen,Urine Negative ng/mL (Cutoff=300); Phencyclidine Screen,Urine Negative ng/mL (Cutoff=25); Salicylate < 2.5 mg/dL (15.0-30.0); Troponin I < 0.03 ng/mL (< 0.04)
[2018-04-11 13:24] LABS: BUN/Creatinine Ratio 14 (6-26); Blood Urea Nitrogen 30 mg/dL (6-20); Calcium 10.2 mg/dL (8.6-10.3); Carbon Dioxide 22 mEq/L (23-29); Chloride 109 mEq/L (98-107); Glucose 101 mg/dL (70-105); Osmolality,Calculated 298 (280-300); Sodium 141 mEq/L (136-145); eGFR For African Americans 39 (> 60); eGFR For Non-African Americans 32 (> 60)
[2018-04-11] MEDS ORDERED: *HR* LORazepam 1 MG TABLET PO ONE (14:00)
[2018-04-11] MEDS: Nitroglycerin 0.4 MG TAB.SUBL SL PRN ×2 (14:55→15:00)
--- NOTE | 2018-04-11 14:59 | Emergency Department Note ---
Disposition Clinical Impression: Chest pain Disposition: Admitted As Inpatient Condition: Fair Forms: ED Satisfaction Letter Time of Disposition: 16:09 General Adult HPI - General Chief complaint: ED Psychiatric Symptoms Stated complaint: Panic Attack Time Seen by Provider: 04/11/18 12:12 Source: EMS Limitations: no limitations Nursing Notes Reviewed: Yes Vital Signs Reviewed: Yes - History of Present Illness HPI Narrative: Patient presents emergency room with complaint of panic attack. Patient said that he had some funny symptoms in his chest up into his left side of his neck. He has no history of chest pain shortness of breath headache vision changes nausea vomiting or diarrhea. Denies any fevers or chills. Denies any history of cardiac disease or stent. Patient's onset of symptoms was during an argument just prior to coming in. Patient denies any suicidal or homicidal ideation. Onset (ago): Just [employer] Location: neck, chest, left Radiation: non-radiation Pain Scale: 7 Quality: aching Improves with: nothing Worsens with: nothing Associated symptoms: Reports: denies other symptoms Treatments Prior to Arrival: none - Related Data Home Medications Medication Instructions Recorded Confirmed Atorvastatin Calcium [Lipitor] 20 mg PO HS 04/11/18 04/11/18 Ciprofloxacin HCl [Cipro] 500 mg PO BID 04/11/18 04/11/18 Docusate [Colace] 1 - 2 cap PO DAILY 04/11/18 04/11/18 Levothyroxine Sodium [Levoxyl] 50 mcg PO QAM 04/11/18 04/11/18 Quetiapine Fumarate [SEROquel] 25 mg PO HS 04/11/18 04/11/18 Sertraline [Zoloft] 100 mg PO DAILY 04/11/18 04/11/18 Tamsulosin [Flomax] 0.4 mg PO DAILY 04/11/18 04/11/18 raNITIdine HCl [Ranitidine HCl] 150 mg PO BID 04/11/18 04/11/18 Allergies Allergy/AdvReac Type Severity Reaction Status Date / Time codeine Allergy Rash Verified 12/05/17 07:38 All systems ED: reviewed and negative except as stated. Review of Systems: As Per HPI Constitutional: Denies: fever, chills Cardiovascular: Reports: chest pain. Denies: palpitations, dyspnea on exertion , orthopnea, edema Respiratory: Denies: cough, dyspnea, wheezes Gastrointestinal: Denies: abdominal pain, nausea, vomiting, diarrhea Genitourinary: Denies: urgency, dysuria Musculoskeletal: Denies: back pain, neck pain Integumentary: Denies: rash Neurological: Denies: headache Past Medical History - Past Medical History Attestation: Yes The following information was validated with the patient. Source: patient Medical history: Reports: GERD Surgical history: Reports: other Psychiatric history: Reports: anxiety, bipolar, depression - Social History Smoking Status: Current some day smoker Smokeless Tobacco Status: No Alcohol use: Reports: none Drug use: Reports: none Physical Exam - General Limitations: no limitations General appearance: alert, in no apparent distress - Head Head exam: atraumatic - ENT ENT exam: normal exam, normal oropharynx, mucous membranes moist - Neck Neck exam: Present: normal inspection, full ROM, trachea midline - Chest Chest inspection: Present: normal inspection, symmetric chest wall rise. Absent : tenderness - Respiratory Respiratory exam: Present: normal lung sounds bilaterally. Absent: respiratory distress - Cardiovascular Cardiovascular exam: Present: regular rate, normal rhythm, normal heart sounds - Abdominal Exam Abdominal exam: Present: soft, Non-Tender, normal bowel sounds. Absent: tenderness, distention, guarding, rebound, rigidity, Perez's sign, Rovsing's sign, tenderness at McBurney's Point - Extremities Exam Extremities exam: Present: normal inspection - Back Exam Back exam: Present: normal inspection, full ROM. Absent: tenderness - Neurological Exam Neurological exam: Present: alert, oriented X3, CN II-XII intact, normal gait - Skin Skin exam: Present: warm, dry, intact, normal color Course Course Narrative: Patient seen and examined the time of arrival. See history of present illness. 47-year-old male presents emergency room with 40 describes as a panic attack. Is feeling a fluttering sensation in his chest he felt tightness in short of breath. This came on during a argumentative at home. He has a history of anxiety but is never had a full-blown panic attack before. Denies any history of cardiac related disease or illness. Currently denying chest pain shortness of breath headache vision changes nausea vomiting or diarrhea. Denies any fevers or chills. Denies any recent trauma or injury. Patient came here and he was shaking diffusely across his entire body and was very agitated. Patient on physical exam is resting in the bed lungs are clear heart is regular abdomen is soft nontender nondistended with no guarding no rigidity. When asking him what he was feeling at this time he said that there is a funny sensation in the left side of his neck and down his left arm. EKG labs including CBC chemistry troponin along with screening evaluation for anxiety was started this point. Patient denied any active chest pain at that time. Denied any history. Patient could have had anxiety driven presentation this point we will continue to monitor and address for any cardiac related illness causing the symptoms here today. Patient is otherwise stable disposition pending the treatment course patient's home health nurse was contacted and they recommended he caught the emergency room for evaluation secondary to the tremors - Reevaluation(s) Reevaluation #1: Approximate 1 hour and 45 minutes of the patient arrived here in the emergency room and went to reevaluate the patient the bedside and see how he was doing considering all his labs he come back unremarkable. Patient was asleep in the bed no distress. I will to talk to him and asked him if he had any symptoms of this time. He said that he still had pain in left side of his neck and left arm. Because of that description patient had a repeat EKG nitroglycerin provided. Concern is noted for anginal related issues and even though his EKG and labs are unremarkable at this point. Disposition because of this complaint will be admission the hospital. Patient denies any anxiety driven issues at this time. Remainder of his chest x-ray and labs are normal. He has not shown any signs of decompensation. Aspirin was given. Admission process will be completed once repeat troponin has been resulted. Time: 16:06 Reevaluation #2: Patient was discussed and reviewed with the hospitalist Dr. Cheney. No other recommendations or concerns at this time. Patient is chest pain-free here in the emergency room aspirin was given. Patient will be brought in for ACS evaluation. Time: 16:57 Vital Signs Temperature 99.3 F 04/11/18 12:11 Pulse Rate 101 04/11/18 12:11 Respiratory Rate 18 04/11/18 12:11 Blood Pressure 124/84 04/11/18 12:11 O2 Sat by Pulse Oximetry 97 04/11/18 12:11 Temperature 99.3 F 04/11/18 12:11 Pulse Rate 92 04/11/18 14:56 Respiratory Rate 14 04/11/18 14:56 Blood Pressure 135/95 04/11/18 14:56 O2 Sat by Pulse Oximetry 95 04/11/18 14:56 Oxygen Delivery Oxygen Delivery Room Air Medical Decision Making - MDM Narrative Medical decision making narrative: Chest pain, stress-induced angina - Medical Records Medical records reviewed: Yes I reviewed the patient's medical records. - Lab Data Lab results reviewed: Yes I reviewed the patient's lab results. Result diagrams: 04/11/18 12:32 04/11/18 12:32 Lab Results 04/11/18 04/11/18 04/11/18 Range/Units 12:32 12:32 12:32 WBC (4.3-11.1) K/mcL RBC (4.19-5.50) M/mcL Hgb (12.9-16.9) g/dL Hct (37.5-50.1) % MCV (83.0-100.0) fL MCH (28.0-33.3) pg MCHC (31.6-35.5) g/dL RDW (11.5-14.5) % Plt Count (140-400) K/mcL MPV (9.4-12.4) fL Immature Gran % (0-4) % Seg Neutrophils % % Lymphocytes % % Monocytes % % Eosinophils % % Basophils % % Neutrophils # (1.6-8.9) K/mcL Lymphocytes # (0.6-4.6) K/mcL Monocytes # (0.0-1.3) K/mcL Eosinophils # (0.0-0.6) K/mcL Basophils # (0.0-0.2) K/mcL PT 11.5 (9.4-12.1) Seconds INR 1.1 APTT 41.6 H (26.0-36.0) Seconds Sodium (136-145) mEq/L Potassium (3.5-5.1) mEq/L Chloride (98-107) mEq/L Carbon Dioxide (23-29) mEq/L BUN (6-20) mg/dL Creatinine (0.70-1.30) mg/dL Est GFR ( Amer) (> 60) Est GFR (Non-Af Amer) (> 60) BUN/Creatinine Ratio (6-26) Glucose (70-105) mg/dL Calculated Osmolality (280-300) Calcium (8.6-10.3) mg/dL Troponin I (< 0.04) ng/mL B-Natriuretic Peptide 14 (Less than 100) pg/mL Salicylates (15.0-30.0) mg/dL Urine Opiates Screen Negative (Aiovxe=763) ng/mL Acetaminophen (10-20) mcg/mL Ur Barbiturates Screen Negative (Xmcmrw=062) ng/mL Ur Phencyclidine Scrn Negative (Cutoff=25) ng/mL Ur Amphetamines Screen Negative (Pdishd=2561) ng/mL U Benzodiazepines Scrn Negative (Tmlbbi=310) ng/mL Urine Cocaine Screen Negative (Cutoff= 300) ng/mL U Marijuana (THC) Screen Negative (Cutoff = 50) ng/mL Ethyl Alcohol (Less than 10) mg/dL 04/11/18 04/11/18 04/11/18 Range/Units 12:32 12:32 12:32 WBC 8.7 (4.3-11.1) K/mcL RBC 5.47 (4.19-5.50) M/mcL Hgb 16.1 (12.9-16.9) g/dL Hct 46.2 (37.5-50.1) % MCV 84.5 (83.0-100.0) fL MCH 29.4 (28.0-33.3) pg MCHC 34.8 (31.6-35.5) g/dL RDW 14.0 (11.5-14.5) % Plt Count 205 (140-400) K/mcL MPV 10.0 (9.4-12.4) fL Immature Gran % 0.3 (0-4) % Seg Neutrophils % 67.5 % Lymphocytes % 21.9 % Monocytes % 9.0 % Eosinophils % 1.0 % Basophils % 0.3 % Neutrophils # 5.9 (1.6-8.9) K/mcL Lymphocytes # 1.9 (0.6-4.6) K/mcL Monocytes # 0.8 (0.0-1.3) K/mcL Eosinophils # 0.1 (0.0-0.6) K/mcL Basophils # 0.0 (0.0-0.2) K/mcL PT (9.4-12.1) Seconds INR APTT (26.0-36.0) Seconds Sodium 141 (136-145) mEq/L Potassium 4.0 (3.5-5.1) mEq/L Chloride 109 H (98-107) mEq/L Carbon Dioxide 22 L (23-29) mEq/L BUN 30 H (6-20) mg/dL Creatinine 2.19 H (0.70-1.30) mg/dL Est GFR ( Amer) 39 L (> 60) Est GFR (Non-Af Amer) 32 L (> 60) BUN/Creatinine Ratio 14 (6-26) Glucose 101 (70-105) mg/dL Calculated Osmolality 298 (280-300) Calcium 10.2 (8.6-10.3) mg/dL Troponin I < 0.03 (< 0.04) ng/mL B-Natriuretic Peptide (Less than 100) pg/mL Salicylates < 2.5 L (15.0-30.0) mg/dL Urine Opiates Screen (Uiyodr=683) ng/mL Acetaminophen < 10 L (10-20) mcg/mL Ur Barbiturates Screen (Bcnrbw=374) ng/mL Ur Phencyclidine Scrn (Cutoff=25) ng/mL Ur Amphetamines Screen (Hfwolo=2095) ng/mL U Benzodiazepines Scrn (Ilfaoj=871) ng/mL Urine Cocaine Screen (Cutoff= 300) ng/mL U Marijuana (THC) Screen (Cutoff = 50) ng/mL Ethyl Alcohol < 10 (Less than 10) mg/dL 04/11/18 Range/Units 15:22 WBC (4.3-11.1) K/mcL RBC (4.19-5.50) M/mcL Hgb (12.9-16.9) g/dL Hct (37.5-50.1) % MCV (83.0-100.0) fL MCH (28.0-33.3) pg MCHC (31.6-35.5) g/dL RDW (11.5-14.5) % Plt Count (140-400) K/mcL MPV (9.4-12.4) fL Immature Gran % (0-4) % Seg Neutrophils % % Lymphocytes % % Monocytes % % Eosinophils % % Basophils % % Neutrophils # (1.6-8.9) K/mcL Lymphocytes # (0.6-4.6) K/mcL Monocytes # (0.0-1.3) K/mcL Eosinophils # (0.0-0.6) K/mcL Basophils # (0.0-0.2) K/mcL PT (9.4-12.1) Seconds INR APTT (26.0-36.0) Seconds Sodium (136-145) mEq/L Potassium (3.5-5.1) mEq/L Chloride (98-107) mEq/L Carbon Dioxide (23-29) mEq/L BUN (6-20) mg/dL Creatinine (0.70-1.30) mg/dL Est GFR ( Amer) (> 60) Est GFR (Non-Af Amer) (> 60) BUN/Creatinine Ratio (6-26) Glucose (70-105) mg/dL Calculated Osmolality (280-300) Calcium (8.6-10.3) mg/dL Troponin I < 0.03 (< 0.04) ng/mL B-Natriuretic Peptide (Less than 100) pg/mL Salicylates (15.0-30.0) mg/dL Urine Opiates Screen (Ahnqdn=751) ng/mL Acetaminophen (10-20) mcg/mL Ur Barbiturates Screen (Zrgdpx=168) ng/mL Ur Phencyclidine Scrn (Cutoff=25) ng/mL Ur Amphetamines Screen (Mmgrgz=9857) ng/mL U Benzodiazepines Scrn (Dpgmwo=295) ng/mL Urine Cocaine Screen (Cutoff= 300) ng/mL U Marijuana (THC) Screen (Cutoff = 50) ng/mL Ethyl Alcohol (Less than 10) mg/dL - Radiology Data Radiology results reviewed: Yes I reviewed the patient's radiology results. Chest x-ray does not show any acute signs of interstitial disease or infection. - EKG Data EKG #1 EKG attestation: Yes I reviewed and interpreted this EKG. EKG results narrative: EKG #1 Sinus rhythm. Ventricular rate of 94. MN interval 148. QRS duration of 86. QTC of 405. No acute signs of ST segment elevation or abnormality. No acute signs of WPW or Brugada. Whitney appears to be normal. EKG was compared to the previous on 06/26/07. There are new Q waves in leads V3 and V4 but no acute signs of reciprocal changes or ST segment elevation this time. EKG #2 EKG attestation: Yes I reviewed and interpreted this EKG. EKG results narrative: Repeat EKG shows sinus rhythm. Ventricular rate of 91. MN interval of 145. QRS duration of 85. QTC of 404. EKG is identical to initial one with no acute changes.
--- NOTE | 2018-04-11 16:15 | Electrocardiograph Report ---
[place] [id number] Test Date: 2018-04-11 Pat Name: Lawrence Ferguson Department: 103 Room: Gender: M Coagulation Operator: : 1970 Requested By: Sudarshan Naik Order Number: [id number] Reading MD: Rowdy Blank Measurements Intervals [place] Rate: 94 P: 46 HI: 148 QRS: 68 QRSD: 86 T: 57 QT: 354 QTc: 405 Interpretive Statements SINUS RHYTHM POOR R WAVE PROGRESSION Electronically Signed On 04-11-2018 16:13:35 EDT by Rowdy Blank
--- NOTE | 2018-04-11 22:16 | Internal Med History&Physical ---
Date of Encounter: 04/11/18 Time of Encounter: 22:15 Internal Medicine - H&P: HPI Admitted From: Emergency Dept Plans for Post Hospital Care: Home History of present illness: Mr. Ferguson is a 47 year old male with history of panic attack, hearing impairment , HTN, Bipolar disorder, seizure, HLD, tobacco abuse. Pt present to ED after arguing with is and visiting nurse calling he mari. Pt states his was aggravating him and that led to him having a panic attack. Pt states at some point he developed CP which was not associated with SOB or diaphoresis. States CP is a 2/10. Also reports having let neck pain. Denies prior history of heart disease. States he does take medication for is panic disorder but the squad arrived before he had a chance to take it. Past Med Surg Social Fam HX - Past Medical History Medical history: GERD Psychiatric history: anxiety, bipolar, depression - Past Surgical History Surgical History: other Additional surgical history: hernia repair - Social History Smoking Status: Current some day smoker Smokeless Tobacco Status: No Alcohol use: none Drug use: none - Family History Mother Living Status: Age at : 60 Father Family Member Ethnicity: Non- Living Status: Age at : 75 Internal Medicine - H&P: Meds Atorvastatin Calcium [Lipitor] 20 mg PO HS 04/11/18 [History] Ciprofloxacin HCl [Cipro] 500 mg PO BID 04/11/18 [History] Docusate [Colace] 1 - 2 cap PO DAILY 04/11/18 [History] Levothyroxine Sodium [Levoxyl] 50 mcg PO QAM 04/11/18 [History] Quetiapine Fumarate [SEROquel] 25 mg PO HS 04/11/18 [History] Sertraline [Zoloft] 100 mg PO DAILY 04/11/18 [History] Tamsulosin [Flomax] 0.4 mg PO DAILY 04/11/18 [History] raNITIdine HCl [Ranitidine HCl] 150 mg PO BID 04/11/18 [History] 3 Allergy/AdvReac Type Severity Reaction Status Date / Time codeine Allergy Rash Verified 12/05/17 07:38 All Systems PM: A 10-system review of systems was performed and is negative for pertinent findings except as documented above in the HPI. - Constitutional Vitals: Temp Pulse Resp BP Pulse Ox 97.9 F 97 18 133/87 95 04/11/18 21:11 04/11/18 21:11 04/11/18 21:11 04/11/18 21:11 04/11/18 21:11 General appearance: Present: A&O X 3, no acute distress - Head Head exam: Present: atraumatic, normocephalic - Eye Eye exam: Present: PERRL, conjuntiva pink, sclera anicteric Pupils: Present: PERRL - Neck Neck exam general surgery: Present: supple, trachea midline. Absent: lymphadenopathy - Respiratory Respiratory exam: Present: CTAB. Absent: accessory muscle use, rales, rhonchi, wheezes - Cardiovascular Cardiovascular exam: Present: RRR, +S1, +S2. Absent: diastolic murmur, gallop, rubs, systolic murmur - GI/Abdominal GI/Abdominal exam: Present: normal bowel sounds, soft, no peritoneal signs. Absent: distended, tenderness - Extremities Exam Extremities exam: Present: warm, radial pulses palpable and symmetrical. Absent : calf tenderness, cyanotic, pedal edema - Neurological Exam Neurological exam: Present: CN II-XII intact, oriented X3, no focal deficits. Absent: pronater drift, facial droop, speech deficit - Skin Skin exam: Present: dry, intact Internal Med - H&P Results - Labs CBC & Chem 7: 04/11/18 12:32 04/11/18 12:32 - Assessment and plan (1) Chest pain Current Visit: Yes Status: Acute Assessment and plan: Initial troponin <0.03. Chest x ray no acute cardiopulmonary process. EKG SR with VR 94. Will cycle troponin. Will Place on ASA QD, nitro SL and oxygen prn. Qualifiers: Qualified Code(s): R07.9 - Chest pain, unspecified (2) Panic disorder Current Visit: Yes Status: Acute Assessment and plan: Will resume home medication. Ativan prn (3) Hyperlipidemia Current Visit: No Status: Chronic Assessment and plan: Atorvastatin Qualifiers: Hyperlipidemia type: unspecified Qualified Code(s): E78.5 - Hyperlipidemia , unspecified (4) Tobacco abuse Current Visit: No Status: Chronic Assessment and plan: Cessation strongly advised. - Time Spent With Patient Total time spent is greater than 50% in coordination of care (as documented) at patient's floor/unit and/or counseling patient: 25 - 35 minutes
[2018-04-11] MEDS ORDERED: Nitroglycerin 0.4 MG TAB.SUBL SL PRN (22:24)
[2018-04-12] MEDS: Nitroglycerin 0.4 MG TAB.SUBL SL PRN (03:38)
[2018-04-12 05:29] LABS: Basophils % 0.4 %; Eosinophils # 0.1 K/mcL (0.0-0.6); Eosinophils % 1.6 %; Immature Granulocytes % 0.3 % (0-4); Lymphocytes # 1.9 K/mcL (0.6-4.6); Lymphocytes % 27.8 %; Mean Corpuscular Hemoglobin 29.4 pg (28.0-33.3); Mean Corpuscular Volume 86.2 fL (83.0-100.0); Mean Platelet Volume 9.9 fL (9.4-12.4); Monocytes # 0.7 K/mcL (0.0-1.3); Monocytes % 9.5 %; Neutrophils # 4.2 K/mcL (1.6-8.9); Platelet Count 193 K/mcL (140-400); Red Blood Count 5.45 M/mcL (4.19-5.50); Red Cell Distribution Width 14.2 % (11.5-14.5); Segmented Neutrophils % 60.4 %
[2018-04-12 05:30] LABS: INR 1.1; Prothrombin Time 11.6 Seconds (9.4-12.1)
[2018-04-12 05:49] LABS: Albumin 4.4 g/dL (3.5-5.7); Albumin/Globulin Ratio 1.7 (1.1-2.2); Bilirubin,Total 0.5 mg/dL (0.3-1.0); Calcium 10.2 mg/dL (8.6-10.3); Globulin 2.6 g/dL (2.4-3.5); Magnesium 2.2 mg/dL (1.6-2.6); Potassium 3.9 mEq/L (3.5-5.1)
[2018-04-12] MEDS: *HR* Enoxaparin 40 MG/0.4 ML SYRINGE SQ SCH (06:31)
[2018-04-12] MEDS ORDERED: Famotidine 20 MG TABLET PO SCH (07:30)
[2018-04-12] MEDS: Aspirin 81 MG TAB.CHEW PO SCH (08:43)
--- NOTE | 2018-04-12 09:36 | Internal Med Progress Note ---
Date of Encounter: 04/12/18 Time of Encounter: 09:32 - Assessment and plan (1) Chest pain Current Visit: Yes Status: Acute Assessment and plan: Negative troponin 3, chest pain resolved Qualifiers: Qualified Code(s): R07.9 - Chest pain, unspecified (2) UTI (urinary tract infection) Current Visit: Yes Status: Acute Assessment and plan: Patient complaining of burning and frequency urination we will check a UA Add the ceftriaxone Qualifiers: Urinary tract infection type: acute cystitis Hematuria presence: without hematuria Qualified Code(s): N30.00 - Acute cystitis without hematuria (3) Hypothyroidism Current Visit: Yes Status: Chronic Qualifiers: Hypothyroidism type: unspecified Qualified Code(s): E03.9 - Hypothyroidism , unspecified (4) Bipolar disorder Current Visit: Yes Status: Chronic Qualifiers: Active/Remission status: remission status unspecified Qualified Code(s): F31.9 - Bipolar disorder, unspecified (5) Chronic kidney disease Current Visit: Yes Status: Chronic Assessment and plan: Patient has CK D stages 3 creatinine has been stable Qualifiers: Chronic kidney disease stage: stage 3 (moderate) Qualified Code(s): N18.3 - Chronic kidney disease, stage 3 (moderate) (6) Essential hypertension Current Visit: Yes Status: Chronic (7) Tobacco abuse Current Visit: Yes Status: Chronic (8) Panic disorder Current Visit: Yes Status: Acute - Time Spent With Patient Total time spent is greater than 50% in coordination of care (as documented) at patient's floor/unit and/or counseling patient: - Subjective Interval history: Mr. Ferguson is a 47 year old male with history of panic attack, hearing impairment , HTN, Bipolar disorder, seizure, HLD, tobacco abuse. Pt present to ED after arguing with is and visiting nurse calling he mari. Patient is doing well, chest pain resolved. He is aware of he has stages 3 kidney disease. He does not want to go home because his son was there and not nice to him. We will consult to social work He complains of burning and painful urination for few days. We will check UA and add ceftriaxone - Constitutional Vitals: Temp Pulse Resp BP Pulse Ox 98.5 F 78 16 122/81 96 04/12/18 07:04 04/12/18 07:04 04/12/18 07:04 04/12/18 07:04 04/12/18 07:04 General appearance: Present: A&O X 3, no acute distress, answers questions appropriately Exam: CONSTITUTIONAL: patient appears as an age appropriate male in no acute distress. EYES Clear sclerae, bilateral pupils are equal, reactive to light. EMOI. RESPIRATORY: No accessory muscle use, bilateral clear to auscultation, no wheezing, no crackles/rales. CARDIOVASCULAR: Regular heart rate, normal S1 and S2, no murmurs GASTROINTESTINAL: bowel sounds present, soft, no tenderness. MUSCULOSKELETAL: Joints in normal range of motion, no clubbing, no edema, no cyanosis. Bilateral peripheral pulses 2+. NEUROLOGIC: CN II to XII are grossly intact, no focal neurological deficit. Internal Medicine: Result - Labs CBC & Chem 7: 04/12/18 04:43 04/12/18 04:43 Labs: Short CBC 04/12/18 Range/Units 04:43 WBC 7.0 (4.3-11.1) K/mcL Hgb 16.0 (12.9-16.9) g/dL Hct 47.0 (37.5-50.1) % Plt Count 193 (140-400) K/mcL Neutrophils # 4.2 (1.6-8.9) K/mcL BMP 04/12/18 04:43 Sodium 140 Potassium 3.9 Chloride 107 Carbon Dioxide 26 BUN 30 H Creatinine 2.13 H Glucose 106 H Calcium 10.2 Cardiac Enzymes 04/11/18 04/12/18 Range/Units 22:48 04:43 Troponin I < 0.03 < 0.03 (< 0.04) ng/mL Liver Function 04/12/18 Range/Units 04:43 Total Bilirubin 0.5 (0.3-1.0) mg/dL AST 17 (13-39) Units/L ALT 11 (7-52) Units/L Alkaline Phosphatase 163 H (34-104) Units/L Albumin 4.4 (3.5-5.7) g/dL - ABG Interpretation ABG results: PT/INR, D-dimer PT 11.6 Seconds (9.4-12.1) 04/12/18 04:43 Consult Discharge Plan - Plan Referrals: Denita Burden MD [Primary Care Provider] -
[2018-04-12] MEDS ORDERED: cefTRIAXone 1,000 MG in Water for inj. (sterile) 20 ML 10 ML IVP SCH (10:00)
[2018-04-12 13:43] LABS: Bilirubin,Urine Negative (Negative); Blood,Urine Trace (Negative); Clarity,Urine Turbid (Clear); Color,Urine Yellow (Yellow); Glucose,Urine (UA) Normal (Normal); Ketones,Urine Negative (Negative); Leukocyte Esterase,Urine Large (Negative); Nitrite,Urine Positive (Negative); Protein,Urine 30 mg/dL (Neg-Trace); Specific Gravity,Urine 1.018 (1.010-1.025); Urobilinogen,Urine Normal (Normal)
[2018-04-12 13:45] LABS: Bacteria,Urine None Seen per hpf (None-Few); Hyaline Casts,Urine None Seen per lpf (None-Few); Squamous Epithelial Cell,Urine Many per lpf (None-Few); WBC,Urine TNTC per hpf (0-3)
--- NOTE | 2018-04-12 17:56 | Electrocardiograph Report ---
[address] [address] Test Date: 2018-04-11 Pat Name: Lawrence Ferguson Department: 102 Room: [facility] Gender: Retoucher: : 1970 Requested By: Sudarshan Naik Order Number: [id number] Reading MD: Louie Damon Measurements Intervals [place] Rate: 91 P: 40 [place]: 145 QRS: 78 QRSD: 85 T: 51 QT: 355 QTc: 404 Interpretive Statements SINUS RHYTHM Poor R wave progression Electronically Signed On 04-12-2018 17:54:55 EDT by Louie Damon
--- NOTE | 2018-04-12 18:16 | Electrocardiograph Report ---
[address] [address] Test Date: 2018-04-12 Pat Name: Lawrence Ferguson Department: 114 Room: [facility] Gender: M Sole Blacker: [id number] : 1970 Requested By: Tyler Morales Order Number: [id number] Reading MD: Louie Damon Measurements Intervals [place] Rate: 75 P: 45 ME: 154 QRS: 63 QRSD: 87 T: 63 QT: 399 QTc: 427 Interpretive Statements SINUS RHYTHM Poor R wave progression Electronically Signed On 04-12-2018 18:15:05 EDT by Louie Damon
[2018-04-13] MEDS: *HR* Enoxaparin 40 MG/0.4 ML SYRINGE SQ SCH (05:52)
[2018-04-13] MEDS ORDERED: Famotidine 20 MG TABLET PO SCH (09:00)
--- NOTE | 2018-04-13 09:09 | Discharge Summary ---
Date of Encounter: 04/13/18 Time of Encounter: 09:02 - Discharge Diagnosis (1) Chest pain Priority: Primary Status: Resolved Qualifiers: Chest pain type: unspecified Qualified Code(s): R07.9 - Chest pain, unspecified (2) Hypothyroidism Priority: Secondary Status: Chronic Qualifiers: Hypothyroidism type: unspecified Qualified Code(s): E03.9 - Hypothyroidism , unspecified (3) Bipolar disorder Priority: Secondary Status: Chronic Qualifiers: Active/Remission status: remission status unspecified Qualified Code(s): F31.9 - Bipolar disorder, unspecified (4) Chronic kidney disease Priority: Secondary Status: Chronic Qualifiers: Chronic kidney disease stage: stage 3 (moderate) Qualified Code(s): N18.3 - Chronic kidney disease, stage 3 (moderate) (5) Essential hypertension Priority: Secondary Status: Chronic (6) Tobacco abuse Priority: Secondary Status: Chronic (7) Panic disorder Priority: Secondary Status: Acute Hospital course: Mr. Ferguson is a 47 year old male with history of panic attack, hearing impairment , HTN, Bipolar disorder, seizure, HLD, tobacco abuse. Pt present to ED after arguing with is and visiting nurse calling he mari. Patient is doing well, chest pain resolved. He is aware of he has stages 3 kidney disease. He does not want to go home because his son was there and not nice to him. He complains of burning and painful urination for few days. UA showed pyuria no bacteria, continue home cipro patient denies depresison and suicide, discharge to home with his sister, follow up with PCP. (1) Chest pain Current Visit: Yes Status: Acute Assessment and plan: Negative troponin 3, chest pain resolved Qualifiers: Qualified Code(s): R07.9 - Chest pain, unspecified (2) UTI (urinary tract infection) Current Visit: Yes Status: Acute Assessment and plan: Patient complaining of burning and frequency urination, UA is negative for bacteria, continue home cipro Add the ceftriaxone Qualifiers: Urinary tract infection type: acute cystitis Hematuria presence: without hematuria Qualified Code(s): N30.00 - Acute cystitis without hematuria (3) Hypothyroidism Current Visit: Yes Status: Chronic Qualifiers: Hypothyroidism type: unspecified Qualified Code(s): E03.9 - Hypothyroidism , unspecified (4) Bipolar disorder Current Visit: Yes Status: Chronic Qualifiers: Active/Remission status: remission status unspecified Qualified Code(s): F31.9 - Bipolar disorder, unspecified (5) Chronic kidney disease Current Visit: Yes Status: Chronic Assessment and plan: Patient has CK D stages 3 creatinine has been stable Qualifiers: Chronic kidney disease stage: stage 3 (moderate) Qualified Code(s): N18.3 - Chronic kidney disease, stage 3 (moderate) (6) Essential hypertension Current Visit: Yes Status: Chronic (7) Tobacco abuse Current Visit: Yes Status: Chronic (8) Panic disorder Current Visit: Yes Status: Acute - Time Spent with Patient Total time spent providing and/or coordinating discharge services: Less than 30 minutes - Discharge Medications Home Medications: Atorvastatin Calcium [Lipitor] 20 mg PO HS 04/11/18 [History] Ciprofloxacin HCl [Cipro] 500 mg PO BID 04/11/18 [History] Docusate [Colace] 1 - 2 cap PO DAILY 04/11/18 [History] Levothyroxine Sodium [Levoxyl] 50 mcg PO QAM 04/11/18 [History] Quetiapine Fumarate [Seroquel] 25 mg PO HS 04/11/18 [History] Sertraline [Zoloft] 100 mg PO DAILY 04/11/18 [History] Tamsulosin [Flomax] 0.4 mg PO DAILY 04/11/18 [History] raNITIdine HCl [Ranitidine HCl] 150 mg PO BID 04/11/18 [History] Allergies/Adverse Reactions: 3 Allergy/AdvReac Type Severity Reaction Status Date / Time codeine Allergy Rash Verified 12/05/17 07:38 Date of admission: 04/11/18 20:08 Primary care physician: Denita Burden MD Consults: 04/12/18 08:54 Consult to Hand Rounder [CONS] Routine Reason for SW Consult: Home health Discharging clinician: Estelle Trivedi Anticipated date of discharge: 04/13/18 - Constitutional Vitals: Temp Pulse Resp BP Pulse Ox 98.8 F 87 17 119/83 96 04/13/18 07:39 04/13/18 07:39 04/13/18 07:39 04/13/18 07:39 04/13/18 07:39 General appearance: Present: A&O X 3, no acute distress, answers questions appropriately - Patient Status Disposition: Home, Self-Care Condition: Good Functional capacity at discharge: independent ambulation Overall status at discharge: patient is back to baseline - Discharge Instructions Follow Up With: Denita Burden MD [Primary Care Provider] -
[2018-04-13] MEDS: Aspirin 81 MG TAB.CHEW PO SCH (10:31)
[2018-04-13 11:37] VITALS: BP 110/74
--- NOTE | 2018-04-13 15:52 | Physician Discharge Referral ---
Home Health/Hosp Referral Info Provider in Charge Post Discharge: PCP - Diagnosis (1) Chest pain Status: Resolved (2) Hypothyroidism Status: Chronic (3) Bipolar disorder Status: Chronic (4) Chronic kidney disease Status: Chronic (5) Essential hypertension Status: Chronic (6) Tobacco abuse Status: Chronic (7) Panic disorder Status: Acute - Respiratory Orders Smoking Cessation: Smoking cessation has been advised. For more information, call the [place] Tobacco Quit Line at 4-161-GHWT-NOW. - Transfer Medications Home Medications: Atorvastatin Calcium [Lipitor] 20 mg PO HS 04/11/18 [History] Ciprofloxacin HCl [Cipro] 500 mg PO BID 04/11/18 [History] Docusate [Colace] 1 - 2 cap PO DAILY 04/11/18 [History] Levothyroxine Sodium [Levoxyl] 50 mcg PO QAM 04/11/18 [History] Quetiapine Fumarate [Seroquel] 25 mg PO HS 04/11/18 [History] Sertraline [Zoloft] 100 mg PO DAILY 04/11/18 [History] Tamsulosin [Flomax] 0.4 mg PO DAILY 04/11/18 [History] raNITIdine HCl [Ranitidine HCl] 150 mg PO BID 04/11/18 [History] Allergies/Adverse Reactions: 3 Allergy/AdvReac Type Severity Reaction Status Date / Time codeine Allergy Rash Verified 12/05/17 07:38 Certification: Further, I certify that my clinical findings support that this patient is homebound (i.e. absences from home require considerable and taxing effort and are for medical reasons or yarsanism services or infrequently or short duration when for other reasons) because: Homebound Reason: Patient requires assistance of a person or device to safely leave home, Leaving home requires considerable and taxing effort due to condition Attestation: My signature below is to certify that this patient is under my care and that I, or nurse practitioner, or a physician's spa assistant manager working with me, has a face-to -face encounter with this patient.
--- NOTE | 2018-04-13 16:10 | Physician Discharge Referral ---
Home Health/Hosp Referral Info Provider in Charge Post Discharge: PCP - Diagnosis (1) Hypothyroidism Status: Chronic (2) Bipolar disorder Status: Chronic (3) Chronic kidney disease Status: Chronic (4) Essential hypertension Status: Chronic (5) Tobacco abuse Status: Chronic (6) Panic disorder Status: Acute - Respiratory Orders Smoking Cessation: Smoking cessation has been advised. For more information, call the [place] Tobacco Quit Line at 6-907-REML-NOW. - Services Needed Following services are medically necessary services: Nursing - Transfer Medications Home Medications: Atorvastatin Calcium [Lipitor] 20 mg PO HS 04/11/18 [History] Ciprofloxacin HCl [Cipro] 500 mg PO BID 04/11/18 [History] Docusate [Colace] 1 - 2 cap PO DAILY 04/11/18 [History] Levothyroxine Sodium [Levoxyl] 50 mcg PO QAM 04/11/18 [History] Quetiapine Fumarate [Seroquel] 25 mg PO HS 04/11/18 [History] Sertraline [Zoloft] 100 mg PO DAILY 04/11/18 [History] Tamsulosin [Flomax] 0.4 mg PO DAILY 04/11/18 [History] raNITIdine HCl [Ranitidine HCl] 150 mg PO BID 04/11/18 [History] Allergies/Adverse Reactions: 3 Allergy/AdvReac Type Severity Reaction Status Date / Time codeine Allergy Rash Verified 12/05/17 07:38 Certification: Further, I certify that my clinical findings support that this patient is homebound (i.e. absences from home require considerable and taxing effort and are for medical reasons or adventism services or infrequently or short duration when for other reasons) because: Homebound Reason: Patient requires assistance of a person or device to safely leave home Attestation: My signature below is to certify that this patient is under my care and that I, or nurse practitioner, or a physician's dental assistant medical assistant working with me, has a face-to -face encounter with this patient.
== END 2018-04-13 14:40 | disposition home or self-care (01) ==
LOC: 3NENU 12:09 → EMEROO 12:09 → SUATTDRO 20:08 → 3NENU 20:32
PROVIDERS: ADMIT Internal Medicine; ATTEND Hospitalist

== ENCOUNTER 2019-06-03 00:08 | Observation (INO) ==
--- NOTE | 2019-06-03 00:20 | Emergency Department Note ---
Disposition Clinical Impression: Altered mental status Qualifiers: Altered mental status type: unspecified Qualified Code(s): R41.82 - Altered mental status, unspecified Disposition: Admitted As Inpatient Condition: Fair Time of Disposition: 06:50 General Adult HPI - General Chief complaint: ED Psychiatric Symptoms Stated complaint: SI Time Seen by Provider: 06/03/19 00:14 Source: EMS Limitations: altered mental status Nursing Notes Reviewed: Yes Vital Signs Reviewed: Yes - History of Present Illness Pain Scale: 0 - Related Data Home Medications Medication Instructions Recorded Confirmed Atorvastatin Calcium [Lipitor] 20 mg PO HS 04/11/18 04/11/18 Ciprofloxacin HCl [Cipro] 500 mg PO BID 04/11/18 04/11/18 Docusate [Colace] 1 - 2 cap PO DAILY 04/11/18 04/11/18 Levothyroxine Sodium [Levoxyl] 50 mcg PO QAM 04/11/18 04/11/18 Quetiapine Fumarate [Seroquel] 25 mg PO HS 04/11/18 04/11/18 Sertraline [Zoloft] 100 mg PO DAILY 04/11/18 04/11/18 Tamsulosin [Flomax] 0.4 mg PO DAILY 04/11/18 04/11/18 raNITIdine HCl [Ranitidine HCl] 150 mg PO BID 04/11/18 04/11/18 Previous Rx's Medication Instructions Recorded HydrOXYzine Pamoate [Vistaril] 50 mg PO BID PRN 5 Days #10 capsule 04/15/18 cephALEXin [Keflex] 500 mg PO TID #21 capsule 05/28/19 Allergies Allergy/AdvReac Type Severity Reaction Status Date / Time codeine Allergy Rash Verified 12/05/17 07:38 Past Medical History - Past Medical History Medical history: Reports: non-contributory, GERD Surgical history: Reports: other Psychiatric history: Reports: anxiety, bipolar, depression - Social History Smoking Status: Current every day smoker Smokeless Tobacco Status: No Alcohol use: Reports: none Drug use: Reports: none Physical Exam - General Limitations: altered mental status General appearance: alert, in no apparent distress Course Vital Signs Temperature 98.1 F 06/03/19 00:13 Pulse Rate 95 06/03/19 00:13 Respiratory Rate 16 06/03/19 00:13 Blood Pressure 136/109 06/03/19 00:13 O2 Sat by Pulse Oximetry 96 06/03/19 00:13 Temperature 98.7 F 06/03/19 00:43 Pulse Rate 94 06/03/19 00:43 Respiratory Rate 20 06/03/19 00:43 Blood Pressure 122/97 06/03/19 00:43 O2 Sat by Pulse Oximetry 96 06/03/19 00:43 Oxygen Delivery Oxygen Delivery Room Air Medical Decision Making - Lab Data Result diagrams: 06/03/19 00:38 06/03/19 00:38 Lab Results 06/03/19 06/03/19 06/03/19 Range/Units 00:38 00:38 00:38 WBC 10.2 (4.3-11.1) K/mcL RBC 6.31 H (4.19-5.50) M/mcL Hgb 19.0 H (12.9-16.9) g/dL Hct 56.5 H (37.5-50.1) % MCV 89.5 (83.0-100.0) fL MCH 30.1 (28.0-33.3) pg MCHC 33.6 (31.6-35.5) g/dL RDW 13.5 (11.5-14.5) % Plt Count 175 (140-400) K/mcL MPV 10.0 (9.4-12.4) fL Immature Gran % 0.2 (0-4) % Seg Neutrophils % 77.8 % Lymphocytes % 14.2 % Monocytes % 7.1 % Eosinophils % 0.3 % Basophils % 0.4 % Neutrophils # 8.0 (1.6-8.9) K/mcL Lymphocytes # 1.5 (0.6-4.6) K/mcL Monocytes # 0.7 (0.0-1.3) K/mcL Eosinophils # 0.0 (0.0-0.6) K/mcL Basophils # 0.0 (0.0-0.2) K/mcL VBG pH (7.32-7.42) pH Units VBG pCO2 (41-51) mmHg VBG pO2 (25-50) mmHg VBG HCO3 (21-27) mEq/L Sodium 139 (136-145) mEq/L Potassium 3.8 (3.5-5.1) mEq/L Chloride 106 (98-107) mEq/L Carbon Dioxide 23 (23-29) mEq/L BUN 19 (6-20) mg/dL Creatinine 1.89 H (0.70-1.30) mg/dL Est GFR ( Amer) 46 L (> 60) Est GFR (Non-Af Amer) 38 L (> 60) BUN/Creatinine Ratio 10 (6-26) Glucose 94 (70-105) mg/dL Calculated Osmolality 290 (280-300) Calcium 10.4 H (8.6-10.3) mg/dL Total Bilirubin 0.6 (0.3-1.0) mg/dL Direct Bilirubin 0.1 (0.0-0.2) mg/dL Indirect Bilirubin 0.5 (0.0-1.2) mg/dL AST 13 (13-39) Units/L ALT 14 (7-52) Units/L Alkaline Phosphatase 133 H (34-104) Units/L Ammonia (16-53) mcmol/L Troponin I < 0.03 (< 0.04) ng/mL Serum Total Protein 7.3 (6.4-8.9) g/dL Albumin 4.4 (3.5-5.7) g/dL Globulin 2.9 (2.4-3.5) g/dL Albumin/Globulin Ratio 1.5 (1.1-2.2) TSH 2.139 (0.340-5.600) mcIU/mL Urine Color (Yellow) Urine Clarity (Clear) Urine pH (5.0-8.0) pH Units Ur Specific [place] (1.010-1.025) Urine Protein (Neg-Trace) mg/dL Urine Glucose (UA) (Normal) mg/dL Urine Ketones (Negative) mg/dL Urine Blood (Negative) Urine Nitrite (Negative) Urine Bilirubin (Negative) Urine Urobilinogen (Normal) mg/dL Ur Leukocyte Esterase (Negative) Urine Microscopic RBC (0-3) per hpf Urine Microscopic WBC (0-3) per hpf Ur Squamous Epith Cells (None-Few) per lpf Urine Bacteria (None-Few) per hpf Hyaline Casts (None-Few) per lpf Ur Culture Indicated? (NO) Salicylates < 2.5 L (15.0-30.0) mg/dL Urine Opiates Screen (Nqpqgs=015) ng/mL Ur Buprenorphine Scrn (Cutoff=5) ng/mL Acetaminophen < 10 L (10-20) mcg/mL Ur Barbiturates Screen (Dcdqxy=418) ng/mL Ur Phencyclidine Scrn (Cutoff=25) ng/mL Ur Amphetamines Screen (Aahqul=4348) ng/mL U Benzodiazepines Scrn (Zfvyzh=991) ng/mL Urine Cocaine Screen (Cutoff= 300) ng/mL U Marijuana (THC) Screen (Cutoff = 50) ng/mL Ur Drug Screen Interp Ethyl Alcohol < 10 < 10 (Less than 10) mg/dL 06/03/19 06/03/19 06/03/19 Range/Units 00:38 00:52 02:15 WBC (4.3-11.1) K/mcL RBC (4.19-5.50) M/mcL Hgb (12.9-16.9) g/dL Hct (37.5-50.1) % MCV (83.0-100.0) fL MCH (28.0-33.3) pg MCHC (31.6-35.5) g/dL RDW (11.5-14.5) % Plt Count (140-400) K/mcL MPV (9.4-12.4) fL Immature Gran % (0-4) % Seg Neutrophils % % Lymphocytes % % Monocytes % % Eosinophils % % Basophils % % Neutrophils # (1.6-8.9) K/mcL Lymphocytes # (0.6-4.6) K/mcL Monocytes # (0.0-1.3) K/mcL Eosinophils # (0.0-0.6) K/mcL Basophils # (0.0-0.2) K/mcL VBG pH 7.32 (7.32-7.42) pH Units VBG pCO2 50 (41-51) mmHg VBG pO2 33 (25-50) mmHg VBG HCO3 26 (21-27) mEq/L Sodium (136-145) mEq/L Potassium (3.5-5.1) mEq/L Chloride (98-107) mEq/L Carbon Dioxide (23-29) mEq/L BUN (6-20) mg/dL Creatinine (0.70-1.30) mg/dL Est GFR ( Amer) (> 60) Est GFR (Non-Af Amer) (> 60) BUN/Creatinine Ratio (6-26) Glucose (70-105) mg/dL Calculated Osmolality (280-300) Calcium (8.6-10.3) mg/dL Total Bilirubin (0.3-1.0) mg/dL Direct Bilirubin (0.0-0.2) mg/dL Indirect Bilirubin (0.0-1.2) mg/dL AST (13-39) Units/L ALT (7-52) Units/L Alkaline Phosphatase (34-104) Units/L Ammonia 39 (16-53) mcmol/L Troponin I (< 0.04) ng/mL Serum Total Protein (6.4-8.9) g/dL Albumin (3.5-5.7) g/dL Globulin (2.4-3.5) g/dL Albumin/Globulin Ratio (1.1-2.2) TSH (0.340-5.600) mcIU/mL Urine Color Yellow (Yellow) Urine Clarity Clear (Clear) Urine pH 7.0 (5.0-8.0) pH Units Ur Specific [place] 1.020 (1.010-1.025) Urine Protein 100 H (Neg-Trace) mg/dL Urine Glucose (UA) Normal (Normal) mg/dL Urine Ketones Negative (Negative) mg/dL Urine Blood Negative (Negative) Urine Nitrite Negative (Negative) Urine Bilirubin Negative (Negative) Urine Urobilinogen Normal (Normal) mg/dL Ur Leukocyte Esterase Small H (Negative) Urine Microscopic RBC 3-5 H (0-3) per hpf Urine Microscopic WBC 15-30 H (0-3) per hpf Ur Squamous Epith Cells Many H (None-Few) per lpf Urine Bacteria None Seen (None-Few) per hpf Hyaline Casts None Seen (None-Few) per lpf Ur Culture Indicated? YES A (NO) Salicylates (15.0-30.0) mg/dL Urine Opiates Screen (Hbcgzg=631) ng/mL Ur Buprenorphine Scrn (Cutoff=5) ng/mL Acetaminophen (10-20) mcg/mL Ur Barbiturates Screen (Mhfgqq=187) ng/mL Ur Phencyclidine Scrn (Cutoff=25) ng/mL Ur Amphetamines Screen (Aiooej=0050) ng/mL U Benzodiazepines Scrn (Efasdt=745) ng/mL Urine Cocaine Screen (Cutoff= 300) ng/mL U Marijuana (THC) Screen (Cutoff = 50) ng/mL Ur Drug Screen Interp Ethyl Alcohol (Less than 10) mg/dL 06/03/19 Range/Units 02:15 WBC (4.3-11.1) K/mcL RBC (4.19-5.50) M/mcL Hgb (12.9-16.9) g/dL Hct (37.5-50.1) % MCV (83.0-100.0) fL MCH (28.0-33.3) pg MCHC (31.6-35.5) g/dL RDW (11.5-14.5) % Plt Count (140-400) K/mcL MPV (9.4-12.4) fL Immature Gran % (0-4) % Seg Neutrophils % % Lymphocytes % % Monocytes % % Eosinophils % % Basophils % % Neutrophils # (1.6-8.9) K/mcL Lymphocytes # (0.6-4.6) K/mcL Monocytes # (0.0-1.3) K/mcL Eosinophils # (0.0-0.6) K/mcL Basophils # (0.0-0.2) K/mcL VBG pH (7.32-7.42) pH Units VBG pCO2 (41-51) mmHg VBG pO2 (25-50) mmHg VBG HCO3 (21-27) mEq/L Sodium (136-145) mEq/L Potassium (3.5-5.1) mEq/L Chloride (98-107) mEq/L Carbon Dioxide (23-29) mEq/L BUN (6-20) mg/dL Creatinine (0.70-1.30) mg/dL Est GFR ( Amer) (> 60) Est GFR (Non-Af Amer) (> 60) BUN/Creatinine Ratio (6-26) Glucose (70-105) mg/dL Calculated Osmolality (280-300) Calcium (8.6-10.3) mg/dL Total Bilirubin (0.3-1.0) mg/dL Direct Bilirubin (0.0-0.2) mg/dL Indirect Bilirubin (0.0-1.2) mg/dL AST (13-39) Units/L ALT (7-52) Units/L Alkaline Phosphatase (34-104) Units/L Ammonia (16-53) mcmol/L Troponin I (< 0.04) ng/mL Serum Total Protein (6.4-8.9) g/dL Albumin (3.5-5.7) g/dL Globulin (2.4-3.5) g/dL Albumin/Globulin Ratio (1.1-2.2) TSH (0.340-5.600) mcIU/mL Urine Color (Yellow) Urine Clarity (Clear) Urine pH (5.0-8.0) pH Units Ur Specific [place] (1.010-1.025) Urine Protein (Neg-Trace) mg/dL Urine Glucose (UA) (Normal) mg/dL Urine Ketones (Negative) mg/dL Urine Blood (Negative) Urine Nitrite (Negative) Urine Bilirubin (Negative) Urine Urobilinogen (Normal) mg/dL Ur Leukocyte Esterase (Negative) Urine Microscopic RBC (0-3) per hpf Urine Microscopic WBC (0-3) per hpf Ur Squamous Epith Cells (None-Few) per lpf Urine Bacteria (None-Few) per hpf Hyaline Casts (None-Few) per lpf Ur Culture Indicated? (NO) Salicylates (15.0-30.0) mg/dL Urine Opiates Screen Negative (Iktfeu=065) ng/mL Ur Buprenorphine Scrn Negative (Cutoff=5) ng/mL Acetaminophen (10-20) mcg/mL Ur Barbiturates Screen Negative (Ewmbxs=435) ng/mL Ur Phencyclidine Scrn Negative (Cutoff=25) ng/mL Ur Amphetamines Screen Negative (Nxycqq=8881) ng/mL U Benzodiazepines Scrn Negative (Qgaaxz=959) ng/mL Urine Cocaine Screen Negative (Cutoff= 300) ng/mL U Marijuana (THC) Screen Negative (Cutoff = 50) ng/mL Ur Drug Screen Interp See Below Ethyl Alcohol (Less than 10) mg/dL Attestation Statement - Attestation Attestation: I examined this patient and my medical decision-making was reviewed with the Resident Physician. I agree with the documented findings, disposition and treatment plan as described except to the extent set forth below. Change in behavior over the past week. Delusional. Paranoid. Found by police tonight wandering around knocking on random people's doors. History of bipolar. Family states he is compliant with his medications. On exam he is awake and alert. Oriented to self, place, year. Heart regular lungs clear. Plan. Altered mental status workup. If workup is unremarkable we will have him evaluated by 1A. Patient is medically cleared at this time. Tox reviewed. Head CT unremarkable. Renal failure is at baseline. Chest x-ray was read as possible pneumonia. Doubtful as patient is not coughing, short of breath, has no white count, and is afebrile. Patient evaluated by psych who wants him admitted medically. Head CT 06/03/19 00:17 IMPRESSION: No acute intracranial abnormality. D/ / Michelet Parson / Michelet Parson Interpreting Provider: Michelet Parson Chest X-Ray 06/03/19 00:20 IMPRESSION: Small amount of opacity in the left retrocardiac area worrisome for pneumonia. No other significant abnormality. D/ / Dimitri Herbert MD / Dimitri Herbert MD Interpreting Provider: Dimitri Herbert MD
--- NOTE | 2019-06-03 00:24 | Emergency Department Note ---
Disposition Clinical Impression: Altered mental status Qualifiers: Altered mental status type: unspecified Qualified Code(s): R41.82 - Altered mental status, unspecified Disposition: Admitted As Inpatient Condition: Good Referrals: Denita Burden MD [Primary Care Provider] - Forms: ED Satisfaction Letter Time of Disposition: 05:57 General Adult HPI - General Stated complaint: SI Time Seen by Provider: 06/03/19 00:14 Source: family, EMS Mode of arrival: EMS Limitations: altered mental status Nursing Notes Reviewed: Yes Vital Signs Reviewed: Yes - History of Present Illness HPI Narrative: Male patient presenting to emergency department by EMS. They were informed that the patient was walking from door to door knocking on doors and looking in windows. Patient has no complaints at this time. He does appear to be confused. He does know his name and place but does not know what month it is. He currently voices no complaints. He has been seen at this facility several times for psychiatric issues. The son does come to the ER shortly after the patient arrives. He states that the patient has been acting erratically for the past week. States he frequently telling told them that they are going to be taking the mcc trying to get them daily. He states that this patient does have a history of bipolar and has been taking his medication. He is unaware if the patient needs more medication for his medication change. States he has never acted like this before. Pain Scale: 0 - Related Data Home Medications Medication Instructions Recorded Confirmed Atorvastatin Calcium [Lipitor] 20 mg PO HS 04/11/18 04/11/18 Ciprofloxacin HCl [Cipro] 500 mg PO BID 04/11/18 04/11/18 Docusate [Colace] 1 - 2 cap PO DAILY 04/11/18 04/11/18 Levothyroxine Sodium [Levoxyl] 50 mcg PO QAM 04/11/18 04/11/18 Quetiapine Fumarate [Seroquel] 25 mg PO HS 04/11/18 04/11/18 Sertraline [Zoloft] 100 mg PO DAILY 04/11/18 04/11/18 Tamsulosin [Flomax] 0.4 mg PO DAILY 04/11/18 04/11/18 raNITIdine HCl [Ranitidine HCl] 150 mg PO BID 04/11/18 04/11/18 Previous Rx's Medication Instructions Recorded HydrOXYzine Pamoate [Vistaril] 50 mg PO BID PRN 5 Days #10 capsule 04/15/18 cephALEXin [Keflex] 500 mg PO TID #21 capsule 05/28/19 Allergies Allergy/AdvReac Type Severity Reaction Status Date / Time codeine Allergy Rash Verified 12/05/17 07:38 Limitations: ROS unobtainable due to patients medical condition Past Medical History - Past Medical History Attestation: Yes The following information was validated with the patient. Source: patient Medical history: Reports: non-contributory, GERD Surgical history: Reports: other Psychiatric history: Reports: anxiety, bipolar, depression - Social History Smoking Status: Current every day smoker Smokeless Tobacco Status: No Alcohol use: Reports: none Drug use: Reports: none Physical Exam - General Limitations: altered mental status General appearance: alert, in no apparent distress - Head Head exam: atraumatic, normocephalic, normal inspection - Eye Eye exam: Present: normal appearance, PERRL, EOMI - ENT ENT exam: normal exam, normal oropharynx, mucous membranes moist - Neck Neck exam: Present: normal inspection, full ROM, trachea midline - Chest Chest inspection: Present: normal inspection, symmetric chest wall rise - Respiratory Respiratory exam: Present: normal lung sounds bilaterally. Absent: respiratory distress, accessory muscle use - Cardiovascular Cardiovascular exam: Present: regular rate, normal rhythm, normal heart sounds - Abdominal Exam Abdominal exam: Present: soft, Non-Tender. Absent: tenderness, distention, guarding, rebound, rigidity, organomegaly, Perez's sign, Rovsing's sign, ten derness at McBurney's Point - Extremities Exam Extremities exam: Present: normal inspection, full ROM. Absent: tenderness, pedal edema - Neurological Exam Neurological exam: Present: alert, other (Confused.) - Psychiatric Psychiatric exam: Present: anxious, manic - Skin Skin exam: Present: warm, dry, intact, normal color. Absent: rash, cyanosis, diaphoresis Course Course Narrative: Patient appears acutely confused. Stable vitals. We will do a psychiatric and altered mental status workup on the patient. Family states he does have a history of bipolar and has been taking his medication. States that he has been confused over the past week. - Reevaluation(s) Reevaluation #1: Patient does have chronic kidney disease. Creatinine is elevated but it appears to be actually lower than his baseline. Patient has no symptoms of pneumonia. No shortness of breath no cough. We will continue to clinically evaluate him. I do not believe that this is a pneumonia noted on the chest x-ray. Time: 01:39 Reevaluation #2: 180 come evaluate the patient. They discussed with the family. Family states that the patient's never acted like this before. They are requesting a medical admission with them to follow as a consult. We will admit patient to the hospitalist this time. Time: 05:44 - Consultations Consultation #1: Dr Gamez accepted Pt in stable condition. Time: 05:56 Vital Signs Temperature 98.1 F 06/03/19 00:13 Pulse Rate 95 06/03/19 00:13 Respiratory Rate 16 06/03/19 00:13 Blood Pressure 136/109 06/03/19 00:13 O2 Sat by Pulse Oximetry 96 06/03/19 00:13 Temperature 98.7 F 06/03/19 00:43 Pulse Rate 94 06/03/19 00:43 Respiratory Rate 20 06/03/19 00:43 Blood Pressure 122/97 06/03/19 00:43 O2 Sat by Pulse Oximetry 96 06/03/19 00:43 Oxygen Delivery Oxygen Delivery Room Air Medical Decision Making - Medical Records Medical records reviewed: Yes I reviewed the patient's medical records. - Lab Data Lab results reviewed: Yes I reviewed the patient's lab results. Result diagrams: 06/03/19 00:38 06/03/19 00:38 Lab Results 06/03/19 06/03/19 06/03/19 Range/Units 00:38 00:38 00:38 WBC 10.2 (4.3-11.1) K/mcL RBC 6.31 H (4.19-5.50) M/mcL Hgb 19.0 H (12.9-16.9) g/dL Hct 56.5 H (37.5-50.1) % MCV 89.5 (83.0-100.0) fL MCH 30.1 (28.0-33.3) pg MCHC 33.6 (31.6-35.5) g/dL RDW 13.5 (11.5-14.5) % Plt Count 175 (140-400) K/mcL MPV 10.0 (9.4-12.4) fL Immature Gran % 0.2 (0-4) % Seg Neutrophils % 77.8 % Lymphocytes % 14.2 % Monocytes % 7.1 % Eosinophils % 0.3 % Basophils % 0.4 % Neutrophils # 8.0 (1.6-8.9) K/mcL Lymphocytes # 1.5 (0.6-4.6) K/mcL Monocytes # 0.7 (0.0-1.3) K/mcL Eosinophils # 0.0 (0.0-0.6) K/mcL Basophils # 0.0 (0.0-0.2) K/mcL VBG pH (7.32-7.42) pH Units VBG pCO2 (41-51) mmHg VBG pO2 (25-50) mmHg VBG HCO3 (21-27) mEq/L Sodium 139 (136-145) mEq/L Potassium 3.8 (3.5-5.1) mEq/L Chloride 106 (98-107) mEq/L Carbon Dioxide 23 (23-29) mEq/L BUN 19 (6-20) mg/dL Creatinine 1.89 H (0.70-1.30) mg/dL Est GFR ( Amer) 46 L (> 60) Est GFR (Non-Af Amer) 38 L (> 60) BUN/Creatinine Ratio 10 (6-26) Glucose 94 (70-105) mg/dL Calculated Osmolality 290 (280-300) Calcium 10.4 H (8.6-10.3) mg/dL Total Bilirubin 0.6 (0.3-1.0) mg/dL Direct Bilirubin 0.1 (0.0-0.2) mg/dL Indirect Bilirubin 0.5 (0.0-1.2) mg/dL AST 13 (13-39) Units/L ALT 14 (7-52) Units/L Alkaline Phosphatase 133 H (34-104) Units/L Ammonia (16-53) mcmol/L Troponin I < 0.03 (< 0.04) ng/mL Serum Total Protein 7.3 (6.4-8.9) g/dL Albumin 4.4 (3.5-5.7) g/dL Globulin 2.9 (2.4-3.5) g/dL Albumin/Globulin Ratio 1.5 (1.1-2.2) TSH 2.139 (0.340-5.600) mcIU/mL Urine Color (Yellow) Urine Clarity (Clear) Urine pH (5.0-8.0) pH Units Ur Specific [place] (1.010-1.025) Urine Protein (Neg-Trace) mg/dL Urine Glucose (UA) (Normal) mg/dL Urine Ketones (Negative) mg/dL Urine Blood (Negative) Urine Nitrite (Negative) Urine Bilirubin (Negative) Urine Urobilinogen (Normal) mg/dL Ur Leukocyte Esterase (Negative) Urine Microscopic RBC (0-3) per hpf Urine Microscopic WBC (0-3) per hpf Ur Squamous Epith Cells (None-Few) per lpf Urine Bacteria (None-Few) per hpf Hyaline Casts (None-Few) per lpf Ur Culture Indicated? (NO) Salicylates < 2.5 L (15.0-30.0) mg/dL Urine Opiates Screen (Aqrnwl=243) ng/mL Ur Buprenorphine Scrn (Cutoff=5) ng/mL Acetaminophen < 10 L (10-20) mcg/mL Ur Barbiturates Screen (Lxyscw=112) ng/mL Ur Phencyclidine Scrn (Cutoff=25) ng/mL Ur Amphetamines Screen (Kduxft=9829) ng/mL U Benzodiazepines Scrn (Viusmf=923) ng/mL Urine Cocaine Screen (Cutoff= 300) ng/mL U Marijuana (THC) Screen (Cutoff = 50) ng/mL Ur Drug Screen Interp Ethyl Alcohol < 10 < 10 (Less than 10) mg/dL 06/03/19 06/03/19 06/03/19 Range/Units 00:38 00:52 02:15 WBC (4.3-11.1) K/mcL RBC (4.19-5.50) M/mcL Hgb (12.9-16.9) g/dL Hct (37.5-50.1) % MCV (83.0-100.0) fL MCH (28.0-33.3) pg MCHC (31.6-35.5) g/dL RDW (11.5-14.5) % Plt Count (140-400) K/mcL MPV (9.4-12.4) fL Immature Gran % (0-4) % Seg Neutrophils % % Lymphocytes % % Monocytes % % Eosinophils % % Basophils % % Neutrophils # (1.6-8.9) K/mcL Lymphocytes # (0.6-4.6) K/mcL Monocytes # (0.0-1.3) K/mcL Eosinophils # (0.0-0.6) K/mcL Basophils # (0.0-0.2) K/mcL VBG pH 7.32 (7.32-7.42) pH Units VBG pCO2 50 (41-51) mmHg VBG pO2 33 (25-50) mmHg VBG HCO3 26 (21-27) mEq/L Sodium (136-145) mEq/L Potassium (3.5-5.1) mEq/L Chloride (98-107) mEq/L Carbon Dioxide (23-29) mEq/L BUN (6-20) mg/dL Creatinine (0.70-1.30) mg/dL Est GFR ( Amer) (> 60) Est GFR (Non-Af Amer) (> 60) BUN/Creatinine Ratio (6-26) Glucose (70-105) mg/dL Calculated Osmolality (280-300) Calcium (8.6-10.3) mg/dL Total Bilirubin (0.3-1.0) mg/dL Direct Bilirubin (0.0-0.2) mg/dL Indirect Bilirubin (0.0-1.2) mg/dL AST (13-39) Units/L ALT (7-52) Units/L Alkaline Phosphatase (34-104) Units/L Ammonia 39 (16-53) mcmol/L Troponin I (< 0.04) ng/mL Serum Total Protein (6.4-8.9) g/dL Albumin (3.5-5.7) g/dL Globulin (2.4-3.5) g/dL Albumin/Globulin Ratio (1.1-2.2) TSH (0.340-5.600) mcIU/mL Urine Color Yellow (Yellow) Urine Clarity Clear (Clear) Urine pH 7.0 (5.0-8.0) pH Units Ur Specific [place] 1.020 (1.010-1.025) Urine Protein 100 H (Neg-Trace) mg/dL Urine Glucose (UA) Normal (Normal) mg/dL Urine Ketones Negative (Negative) mg/dL Urine Blood Negative (Negative) Urine Nitrite Negative (Negative) Urine Bilirubin Negative (Negative) Urine Urobilinogen Normal (Normal) mg/dL Ur Leukocyte Esterase Small H (Negative) Urine Microscopic RBC 3-5 H (0-3) per hpf Urine Microscopic WBC 15-30 H (0-3) per hpf Ur Squamous Epith Cells Many H (None-Few) per lpf Urine Bacteria None Seen (None-Few) per hpf Hyaline Casts None Seen (None-Few) per lpf Ur Culture Indicated? YES A (NO) Salicylates (15.0-30.0) mg/dL Urine Opiates Screen (Mqwckp=419) ng/mL Ur Buprenorphine Scrn (Cutoff=5) ng/mL Acetaminophen (10-20) mcg/mL Ur Barbiturates Screen (Rreunm=807) ng/mL Ur Phencyclidine Scrn (Cutoff=25) ng/mL Ur Amphetamines Screen (Lflpic=6815) ng/mL U Benzodiazepines Scrn (Thutxb=294) ng/mL Urine Cocaine Screen (Cutoff= 300) ng/mL U Marijuana (THC) Screen (Cutoff = 50) ng/mL Ur Drug Screen Interp Ethyl Alcohol (Less than 10) mg/dL 06/03/19 Range/Units 02:15 WBC (4.3-11.1) K/mcL RBC (4.19-5.50) M/mcL Hgb (12.9-16.9) g/dL Hct (37.5-50.1) % MCV (83.0-100.0) fL MCH (28.0-33.3) pg MCHC (31.6-35.5) g/dL RDW (11.5-14.5) % Plt Count (140-400) K/mcL MPV (9.4-12.4) fL Immature Gran % (0-4) % Seg Neutrophils % % Lymphocytes % % Monocytes % % Eosinophils % % Basophils % % Neutrophils # (1.6-8.9) K/mcL Lymphocytes # (0.6-4.6) K/mcL Monocytes # (0.0-1.3) K/mcL Eosinophils # (0.0-0.6) K/mcL Basophils # (0.0-0.2) K/mcL VBG pH (7.32-7.42) pH Units VBG pCO2 (41-51) mmHg VBG pO2 (25-50) mmHg VBG HCO3 (21-27) mEq/L Sodium (136-145) mEq/L Potassium (3.5-5.1) mEq/L Chloride (98-107) mEq/L Carbon Dioxide (23-29) mEq/L BUN (6-20) mg/dL Creatinine (0.70-1.30) mg/dL Est GFR ( Amer) (> 60) Est GFR (Non-Af Amer) (> 60) BUN/Creatinine Ratio (6-26) Glucose (70-105) mg/dL Calculated Osmolality (280-300) Calcium (8.6-10.3) mg/dL Total Bilirubin (0.3-1.0) mg/dL Direct Bilirubin (0.0-0.2) mg/dL Indirect Bilirubin (0.0-1.2) mg/dL AST (13-39) Units/L ALT (7-52) Units/L Alkaline Phosphatase (34-104) Units/L Ammonia (16-53) mcmol/L Troponin I (< 0.04) ng/mL Serum Total Protein (6.4-8.9) g/dL Albumin (3.5-5.7) g/dL Globulin (2.4-3.5) g/dL Albumin/Globulin Ratio (1.1-2.2) TSH (0.340-5.600) mcIU/mL Urine Color (Yellow) Urine Clarity (Clear) Urine pH (5.0-8.0) pH Units Ur Specific [place] (1.010-1.025) Urine Protein (Neg-Trace) mg/dL Urine Glucose (UA) (Normal) mg/dL Urine Ketones (Negative) mg/dL Urine Blood (Negative) Urine Nitrite (Negative) Urine Bilirubin (Negative) Urine Urobilinogen (Normal) mg/dL Ur Leukocyte Esterase (Negative) Urine Microscopic RBC (0-3) per hpf Urine Microscopic WBC (0-3) per hpf Ur Squamous Epith Cells (None-Few) per lpf Urine Bacteria (None-Few) per hpf Hyaline Casts (None-Few) per lpf Ur Culture Indicated? (NO) Salicylates (15.0-30.0) mg/dL Urine Opiates Screen Negative (Csjofp=831) ng/mL Ur Buprenorphine Scrn Negative (Cutoff=5) ng/mL Acetaminophen (10-20) mcg/mL Ur Barbiturates Screen Negative (Xnybxz=541) ng/mL Ur Phencyclidine Scrn Negative (Cutoff=25) ng/mL Ur Amphetamines Screen Negative (Zptgaw=8955) ng/mL U Benzodiazepines Scrn Negative (Smyjct=033) ng/mL Urine Cocaine Screen Negative (Cutoff= 300) ng/mL U Marijuana (THC) Screen Negative (Cutoff = 50) ng/mL Ur Drug Screen Interp See Below Ethyl Alcohol (Less than 10) mg/dL - Radiology Data Radiology results reviewed: Yes I reviewed the patient's radiology results. Head CT 06/03/19 00:17 IMPRESSION: No acute intracranial abnormality. D/ / Michelet Parson / Michelet Parson Interpreting Provider: Michelet Parson Chest X-Ray 06/03/19 00:20 IMPRESSION: Small amount of opacity in the left retrocardiac area worrisome for pneumonia. No other significant abnormality. D/ / Dimitri Herbert MD / Dimitri Herbert MD Interpreting Provider: Dimitri Herbert MD
[2019-06-03 00:49] LABS: Basophils % 0.4 %; Eosinophils % 0.3 %; Hematocrit 56.5 % (37.5-50.1); Immature Granulocytes % 0.2 % (0-4); Lymphocytes # 1.5 K/mcL (0.6-4.6); Lymphocytes % 14.2 %; Mean Corpuscular HGB Conc 33.6 g/dL (31.6-35.5); Mean Corpuscular Hemoglobin 30.1 pg (28.0-33.3); Mean Corpuscular Volume 89.5 fL (83.0-100.0); Monocytes # 0.7 K/mcL (0.0-1.3); Monocytes % 7.1 %; Platelet Count 175 K/mcL (140-400); Red Blood Count 6.31 M/mcL (4.19-5.50); Red Cell Distribution Width 13.5 % (11.5-14.5); Segmented Neutrophils % 77.8 %; White Blood Count 10.2 K/mcL (4.3-11.1)
[2019-06-03 01:09] LABS: Acetaminophen < 10 mcg/mL (10-20); BUN/Creatinine Ratio 10 (6-26); Blood Urea Nitrogen 19 mg/dL (6-20); Calcium 10.4 mg/dL (8.6-10.3); Carbon Dioxide 23 mEq/L (23-29); Chloride 106 mEq/L (98-107); Ethanol < 10 mg/dL (Less than 10); Glucose 94 mg/dL (70-105); Osmolality,Calculated 290 (280-300); Potassium 3.8 mEq/L (3.5-5.1); Salicylate < 2.5 mg/dL (15.0-30.0); Sodium 139 mEq/L (136-145); eGFR For African Americans 46 (> 60); eGFR For Non-African Americans 38 (> 60)
[2019-06-03 01:11] LABS: Alanine Aminotransferase 14 Units/L (7-52); Albumin 4.4 g/dL (3.5-5.7); Albumin/Globulin Ratio 1.5 (1.1-2.2); Alkaline Phosphatase 133 Units/L (34-104); Aspartate Amino Transferase 13 Units/L (13-39); Bilirubin,Direct 0.1 mg/dL (0.0-0.2); Bilirubin,Indirect 0.5 mg/dL (0.0-1.2); Bilirubin,Total 0.6 mg/dL (0.3-1.0); Ethanol < 10 mg/dL (Less than 10); Globulin 2.9 g/dL (2.4-3.5); Total Protein 7.3 g/dL (6.4-8.9)
[2019-06-03 01:12] LABS: Troponin I < 0.03 ng/mL (< 0.04)
[2019-06-03 01:21] LABS: VBG HCO3 26 mEq/L (21-27); VBG PCO2 50 mmHg (41-51); VBG PH 7.32 pH Units (7.32-7.42); VBG PO2 33 mmHg (25-50)
[2019-06-03 01:59] LABS: Thyroid Stimulating Hormone 2.139 mcIU/mL (0.340-5.600)
[2019-06-03 02:21] LABS: Bilirubin,Urine Negative (Negative); Blood,Urine Negative (Negative); Clarity,Urine Clear (Clear); Color,Urine Yellow (Yellow); Glucose,Urine (UA) Normal (Normal); Ketones,Urine Negative (Negative); Leukocyte Esterase,Urine Small (Negative); Nitrite,Urine Negative (Negative); Protein,Urine 100 mg/dL (Neg-Trace); Urobilinogen,Urine Normal (Normal)
[2019-06-03 02:23] LABS: Bacteria,Urine None Seen per hpf (None-Few); Hyaline Casts,Urine None Seen per lpf (None-Few); Squamous Epithelial Cell,Urine Many per lpf (None-Few); WBC,Urine 15-30 per hpf (0-3)
[2019-06-03 02:30] LABS: Amphetamine Screen,Urine Negative ng/mL (Cutoff=1000); Barbiturate Screen,Urine Negative ng/mL (Cutoff=200); Benzodiazepines Screen,Urine Negative ng/mL (Cutoff=200); Cannabinoid Screen,Urine Negative ng/mL (Cutoff = 50); Cocaine Screen,Urine Negative ng/mL (Cutoff= 300); Opiate Screen,Urine Negative ng/mL (Cutoff=300); Phencyclidine Screen,Urine Negative ng/mL (Cutoff=25)
--- NOTE | 2019-06-03 09:25 | Internal Med History&Physical ---
Date of Encounter: 06/03/19 Time of Encounter: 09:24 Internal Medicine - H&P: HPI History of present illness: Mr. Ferguson is a 48 year old male medical history of extensive psych history inclu ding bipolar disorder who presented to the ER with podiatry hallucination. The patient was walking and knocking on doors and windows of houses in his neighborhood. I think the patient indicated that he was evaluated by the ER staff last week for auditory hallucination and was evaluated by the psych unit to staff who declined admitting the patient to the psych unit for further evaluation. The patient was discharged home on oral antibiotics for UTI. I had a long conversation with the and the phone who stated that she would like the patient to be treated for his psychiatric illness and stabilizing his mood however she's not interested in permanent placement and she would like to take care of him at home as long he is underlying psychological and this is under control. The patient about x-ray data was suggestive of volume depletion, possible UTI and x-rays that worrisome for possible pneumonia. The patient at bedside alert and oriented to place and person and not to time, he denies alla cidal ideation or suicidal ideation, he denied dysuria, frequency of urination, or changes of urinary symptoms, he also denies fever, chills, cough , chest pain, progressive worsening of lower extremity edema. Past Med Surg Social Fam HX - Past Medical History Medical history: non-contributory, GERD Additional medical history: incomplete bladder emptying. BPH. GERD. Hypothyroid. tobacco abuse. declined smoking cessation. sleep apnea Psychiatric history: anxiety, bipolar, depression - Past Surgical History Surgical History: other Additional surgical history: hernia repair - Social History Smoking Status: Current every day smoker Smokeless Tobacco Status: No Alcohol use: none Drug use: none - Family History Mother Living Status: Father Family Member Ethnicity: Non- Living Status: Internal Medicine - H&P: Meds Atorvastatin Calcium [Lipitor] 20 mg PO HS 04/11/18 [History] Ciprofloxacin HCl [Cipro] 500 mg PO BID 04/11/18 [History] Docusate [Colace] 1 - 2 cap PO DAILY 04/11/18 [History] Levothyroxine Sodium [Levoxyl] 50 mcg PO QAM 04/11/18 [History] Quetiapine Fumarate [Seroquel] 25 mg PO HS 04/11/18 [History] Sertraline [Zoloft] 100 mg PO DAILY 04/11/18 [History] Tamsulosin [Flomax] 0.4 mg PO DAILY 04/11/18 [History] raNITIdine HCl [Ranitidine HCl] 150 mg PO BID 04/11/18 [History] HydrOXYzine Pamoate [Vistaril] 50 mg PO BID PRN 5 Days #10 capsule 04/15/18 [Rx] cephALEXin [Keflex] 500 mg PO TID #21 capsule 05/28/19 [Rx] Allergy/AdvReac Type Severity Reaction Status Date / Time codeine Allergy Rash Verified 12/05/17 07:38 All Systems PM: A 10-system review of systems was performed and is negative for pertinent findings except as documented above in the HPI. - Constitutional Vitals: Temp Pulse Resp BP Pulse Ox 97.7 F 63 16 131/84 95 06/03/19 08:32 06/03/19 08:32 06/03/19 08:32 06/03/19 08:32 06/03/19 08:32 General appearance: Present: A&O X 2 - Head Head exam: Present: atraumatic, normocephalic - Neck Neck exam general surgery: Present: supple, trachea midline. Absent: lymphadenopathy - Respiratory Respiratory exam: Present: CTAB. Absent: accessory muscle use, rales, rhonchi, wheezes - Cardiovascular Cardiovascular exam: Present: RRR, +S1, +S2. Absent: diastolic murmur, gallop, rubs, systolic murmur - GI/Abdominal GI/Abdominal exam: Present: normal bowel sounds, soft, no peritoneal signs. Absent: distended, tenderness - Neurological Exam Neurological exam: Present: CN II-XII intact, oriented X3, no focal deficits. Absent: pronater drift, facial droop, speech deficit Internal Med - H&P Results - Labs CBC & Chem 7: 06/03/19 00:38 06/03/19 15:45 Labs: Short CBC 06/03/19 Range/Units 00:38 WBC 10.2 (4.3-11.1) K/mcL Hgb 19.0 H (12.9-16.9) g/dL Hct 56.5 H (37.5-50.1) % Plt Count 175 (140-400) K/mcL Neutrophils # 8.0 (1.6-8.9) K/mcL BMP 06/03/19 00:38 Sodium 139 Potassium 3.8 Chloride 106 Carbon Dioxide 23 BUN 19 Creatinine 1.89 H Glucose 94 Calcium 10.4 H Cardiac Enzymes 06/03/19 Range/Units 00:38 Troponin I < 0.03 (< 0.04) ng/mL Liver Function 06/03/19 Range/Units 00:38 Total Bilirubin 0.6 (0.3-1.0) mg/dL Direct Bilirubin 0.1 (0.0-0.2) mg/dL AST 13 (13-39) Units/L ALT 14 (7-52) Units/L Alkaline Phosphatase 133 H (34-104) Units/L Albumin 4.4 (3.5-5.7) g/dL Urine 06/03/19 Range/Units 02:15 Urine Color Yellow (Yellow) Urine Clarity Clear (Clear) Urine pH 7.0 (5.0-8.0) pH Units Ur Specific [place] 1.020 (1.010-1.025) Urine Protein 100 H (Neg-Trace) mg/dL Urine Glucose (UA) Normal (Normal) mg/dL - ABG Interpretation ABG results: 06/03/19 00:52 VBG pH 7.32 VBG pCO2 50 VBG pO2 33 VBG HCO3 26 - Impressions ITS Impressions Head CT 06/03/19 00:17 IMPRESSION: No acute intracranial abnormality. D/ / Michelet Parson / Michelet Parson Interpreting Provider: Michelet Parson Chest X-Ray 06/03/19 00:20 IMPRESSION: Small amount of opacity in the left retrocardiac area worrisome for pneumonia. No other significant abnormality. D/ / Dimitri Herbert MD / Dimitri Herbert MD Interpreting Provider: Dimitri Herbert MD - Assessment and Plan (1) Bipolar disorder Current Visit: No Status: Chronic Assessment and plan: the patient hasmedical history of extensive psych history inclu ding bipolar disorder who presented to the ER with podiatry hallucination. The patient was walking and knocking on doors and windows of houses in his neighborhood. I think the patient indicated that he was evaluated by the ER staff last week for auditory hallucination and was evaluated by the psych unit to staff who declined admitting the patient to the psych unit for further evaluation. The patient was discharged home on oral antibiotics for UTI. I had a long conversation with the and the phone who stated that she would like the patient to be treated for his psychiatric illness and stabilizing his mood however she's not interested in permanent placement and she would like to take care of him at home as long he is underlying psychological and this is under control. Psych was consulted for further evaluation and management and they recommended to clear the patient medically prior to admission to psych Qualifiers: Active/Remission status: remission status unspecified Qualified Code(s): F31.9 - Bipolar disorder, unspecified (2) Auditory hallucination Current Visit: No Status: Acute Assessment and plan: see #1 (3) Opacity noted on imaging study Current Visit: Yes Status: Acute Assessment and plan: a small opacity was noted in the chest x-ray that was worrisome for possible pneumonia which was clinical correlation is less likely since the patient has no leukocytosis denies cough, fever and chills (4) HTN (hypertension) Current Visit: No Status: Acute (5) UTI (urinary tract infection) Current Visit: No Status: Acute Assessment and plan: the patient has history of UTI in December 2018, he was treated with by mouth antibiotics 2 days ago after he was discharged from the ER, and that his he did not take his medication, I reviewed culture. We will obtain clean- catch urinalysis, start patient on empiric antibiotic with po ciprofloxacin that he can continue in the psych unit. Qualifiers: Urinary tract infection type: site unspecified Hematuria presence: with hematuria Qualified Code(s): N39.0 - Urinary tract infection, site not specified; R31.9 - Hematuria, unspecified (6) Chronic kidney disease (CKD) Current Visit: Yes Status: Acute Assessment and plan: The patient cr is around his baseline, he has been on the dry side giving his concentrated hemoglobin, hypocalcemia and elevated BUN, Will start the patient and IV hydration with normal saline, continue to monitor I/O was, renal dosing of medication as current EGFR. (7) Hypercalcemia Current Visit: Yes Status: Acute Assessment and plan: most likely secondary to volume depletion, will continue IV hydrationwas normal saline and recheck Ca level (8) Tobacco abuse Current Visit: No Status: Chronic (9) Hyperlipidemia Current Visit: No Status: Chronic Qualifiers: Hyperlipidemia type: unspecified Qualified Code(s): E78.5 - Hyperlipidemia, unspecified - Time Spent With Patient Total time spent is greater than 50% in coordination of care (as documented) at patient's floor/unit and/or counseling patient:
[2019-06-03] MEDS ORDERED: Naloxone 0.4 MG/ML INJ IVP PRN (10:00)
[2019-06-03] MEDS ORDERED: Ondansetron 4 MG/2 ML VIAL IVP PRN (10:00)
[2019-06-03] MEDS ORDERED: Acetaminophen 325 MG TABLET PO PRN (10:00)
--- NOTE | 2019-06-03 10:56 | Consult Note ---
Date of Encounter: 06/03/19 Time of Encounter: 10:25 Assessment & Recommendation (1) Persistent mood [affective] disorder, unspecified Current visit: Yes Status: Acute Assessment & Recommendation: Patient has a history per him as well as per the chart of bipolar disorder however he could not tell me about past episodes of yuriy and his current medication regimen of the 100 mg of Zoloft and 25 of Seroquel is not consistent with someone with bipolar disorder. Additionally has never been in a psychiatric hospital before. If he truly does have an underlying bipolar disorder then the medication combination could explain why he may have been having manic symptoms prior to arrival in the emergency room. When I saw him today he was quite sedated while he attempted to cooperate to the best of his ability I had difficulty hearing him due to his whispering and trailing off due to falling asleep. He does endorse right now feeling fatigued. He says he is sedated because of not sleeping well last few nights and needing to catch up on sleep. Also not oriented to the month. If no underlying medical etiology for his symptoms is identified and his possible UTI and pneumonia and has been treated if needed he can be admitted to [address] for further stabilization. This time I recommend holding off on his Zoloft and increasing the Seroquel to 50 mg by mouth daily at bedtime History of Present Illness Patient: new to practice Requesting Physician: Kerwin Gamez MD Reason for consult: Altered mental status History of present illness: Mr. Ferguson is a 48 year old male who presented to emergency department by EMS. They were informed that the patient was walking from door to door knocking on doors and looking in windows. In the emergency room Patient had no complaints. He did appear to be confused. He does know his name and place but does not know what month it is. The son does come to the ER shortly after the patient arrives. He states that the patient has been acting erratically for the past week. States he frequently telling told them that they are going to be taking the care home trying to get them daily. He states that this patient does have a history of bipolar and has been taking his medication. He is unaware if the patient needs more medication for his medication change. States he has never acted like this before. His x-ray showed a possible pneumonia and he had some abnormalities in his urinalysis so he was admitted medically. psychiatry was consult did for his mental status change and to evaluate for inpatient. This morning he was calm and cooperative. He was somewhat sedated and was very quiet in his speech. He was oriented to name and that he was in the hospital as well as to the year but believed it was January and of May. He could not tell me exactly why he had been in the psychiatric hospital. He did not recall pounding on neighbor's doors. He did endorse some mood lability and that he had not slept for several days as well as some racing thoughts prior to admission. He says right now he is feeling somewhat sad and down.. He denied hearing or seeing things however notes from the emergency room seemed to indicate that he was responding to internal stimuli while he was there. He denies suicidal or homicidal thoughts ideations or plans. CC: Kerwin Gamez MD Past Med Surg Social Fam HX - Past Medical History Medical history: non-contributory, GERD - Past Psychiatric History Psychiatric history: Reports: bipolar. Denies: prior suicide attempt, previous psychiatric hospitalization Past psychiatric history details: He reports a history of bipolar disorder and this diagnostic history is also what is listed in the chart however currently he is on Zoloft 100 mg in the morning and Seroquel 20 5 at night which is not consistent with a primary bipolar disorder diagnosis although if he does generally have this and was having manic symptoms prior to arrival in the emergency room this emanation may have been what precipitated it. He denies prior psychiatric hospitalizations or suicide attempts. He says he receives services from a woman named Libia at [facility] Family psychiatric history: No Family History of Suicide: None - Past Surgical History Surgical History: other - Social History Smoking Status: Current every day smoker Smokeless Tobacco Status: No Alcohol use: none Drug use: none Occupational status: disabled Current living situation: Home, With Family Activity Level: Independent ambulation Recent Out of Country Travel Within the Last 8 Weeks: No Exposure or Possible Exposure to Illness During Travel: No - Family History Mother Living Status: Father Family Member Ethnicity: Non- Living Status: Medications & Allergies Atorvastatin Calcium [Lipitor] 20 mg PO HS 04/11/18 [History] Ciprofloxacin HCl [Cipro] 500 mg PO BID 04/11/18 [History] Docusate [Colace] 1 - 2 cap PO DAILY 04/11/18 [History] Levothyroxine Sodium [Levoxyl] 50 mcg PO QAM 04/11/18 [History] Quetiapine Fumarate [Seroquel] 25 mg PO HS 04/11/18 [History] Sertraline [Zoloft] 100 mg PO DAILY 04/11/18 [History] Tamsulosin [Flomax] 0.4 mg PO DAILY 04/11/18 [History] raNITIdine HCl [Ranitidine HCl] 150 mg PO BID 04/11/18 [History] HydrOXYzine Pamoate [Vistaril] 50 mg PO BID PRN 5 Days #10 capsule 04/15/18 [Rx] cephALEXin [Keflex] 500 mg PO TID #21 capsule 05/28/19 [Rx] Allergy/AdvReac Type Severity Reaction Status Date / Time codeine Allergy Rash Verified 12/05/17 07:38 Review of Systems Constitutional: Reports: weakness Eyes: Denies: eye pain Ears, Nose, Throat: Denies: ear pain Cardiovascular: Denies: chest pain Respiratory: Reports: dyspnea Gastrointestinal: Denies: abdominal pain Genitourinary male: Denies: urgency Musculoskeletal: Reports: joint pain Integumentary: Denies: rash Neurological: Reports: confusion Psychiatric: Reports: abnormal sleep pattern, auditory hallucinations, confusion, difficulty concentrating, mood swings. Denies: suicidal ideation, change in appetite, homicidal ideation, visual hallucinations Endocrine: Reports: fatigue Hematologic/Lymphatic: Denies: easy bleeding Allergic/Immunologic: Denies: facial swelling Psychiatry Exam - Constitutional Vitals: Temp Pulse Resp BP Pulse Ox 97.7 F 63 16 131/84 95 06/03/19 08:32 06/03/19 08:32 06/03/19 08:32 06/03/19 08:32 06/03/19 08:32 General appearance: age & developmentally appropriate, disheveled - Musculoskeletal Gait: other (In bed) Station: stooped Strength & Tone: mild weakness - Psychiatric Patient Orientation: Yes Person, Yes Time, Yes Place, Yes Circumstance Level of alertness: Sedated, Follows commands Behavior: withdrawn Eye Contact: Minimal Contact Mood Description: Depressed Patient description of mood: Sad Affect description: blunted Speech Volume: Whispering Speech pattern: slurred Language & Vocabulary: consistent with education Thought Process: Thought Blocking Thought Content: No Suicidal ideation, No Homicidal ideation, Yes Paranoid de lusion Perceptual Disturbances: Yes Auditory hallucinations Attention Span Ability: Unable to Focus, Unable to Sustain Attention Memory Description: Immediate Impaired, Recent Impaired, Remote Impaired Patient Reliability: Questionable Historian Fund of knowledge: Yes average Intelligence Estimate: Average Judgment: Poor Insight: None Results - Drug Levels and Toxicology Drug Levels and Toxicology: Drug Levels and Toxicity 06/03/19 06/03/19 06/03/19 00:38 00:38 02:15 Urine Opiates Screen Negative Acetaminophen < 10 L Ur Barbiturates Screen Negative Ur Phencyclidine Scrn Negative Ur Amphetamines Screen Negative U Benzodiazepines Scrn Negative Urine Cocaine Screen Negative U Marijuana (THC) Screen Negative Ethyl Alcohol < 10 < 10 Lab Results 06/03/19 06/03/19 06/03/19 Range/Units 00:38 00:38 00:38 WBC 10.2 (4.3-11.1) K/mcL RBC 6.31 H (4.19-5.50) M/mcL Hgb 19.0 H (12.9-16.9) g/dL Hct 56.5 H (37.5-50.1) % MCV 89.5 (83.0-100.0) fL MCH 30.1 (28.0-33.3) pg MCHC 33.6 (31.6-35.5) g/dL RDW 13.5 (11.5-14.5) % Plt Count 175 (140-400) K/mcL MPV 10.0 (9.4-12.4) fL Immature Gran % 0.2 (0-4) % Seg Neutrophils % 77.8 % Lymphocytes % 14.2 % Monocytes % 7.1 % Eosinophils % 0.3 % Basophils % 0.4 % Neutrophils # 8.0 (1.6-8.9) K/mcL Lymphocytes # 1.5 (0.6-4.6) K/mcL Monocytes # 0.7 (0.0-1.3) K/mcL Eosinophils # 0.0 (0.0-0.6) K/mcL Basophils # 0.0 (0.0-0.2) K/mcL VBG pH (7.32-7.42) pH Units VBG pCO2 (41-51) mmHg VBG pO2 (25-50) mmHg VBG HCO3 (21-27) mEq/L Sodium 139 (136-145) mEq/L Potassium 3.8 (3.5-5.1) mEq/L Chloride 106 (98-107) mEq/L Carbon Dioxide 23 (23-29) mEq/L BUN 19 (6-20) mg/dL Creatinine 1.89 H (0.70-1.30) mg/dL Est GFR ( Amer) 46 L (> 60) Est GFR (Non-Af Amer) 38 L (> 60) BUN/Creatinine Ratio 10 (6-26) Glucose 94 (70-105) mg/dL Calculated Osmolality 290 (280-300) Calcium 10.4 H (8.6-10.3) mg/dL Total Bilirubin 0.6 (0.3-1.0) mg/dL Direct Bilirubin 0.1 (0.0-0.2) mg/dL Indirect Bilirubin 0.5 (0.0-1.2) mg/dL AST 13 (13-39) Units/L ALT 14 (7-52) Units/L Alkaline Phosphatase 133 H (34-104) Units/L Ammonia (16-53) mcmol/L Troponin I < 0.03 (< 0.04) ng/mL Serum Total Protein 7.3 (6.4-8.9) g/dL Albumin 4.4 (3.5-5.7) g/dL Globulin 2.9 (2.4-3.5) g/dL Albumin/Globulin Ratio 1.5 (1.1-2.2) TSH 2.139 (0.340-5.600) mcIU/mL Urine Color (Yellow) Urine Clarity (Clear) Urine pH (5.0-8.0) pH Units Ur Specific [place] (1.010-1.025) Urine Protein (Neg-Trace) mg/dL Urine Glucose (UA) (Normal) mg/dL Urine Ketones (Negative) mg/dL Urine Blood (Negative) Urine Nitrite (Negative) Urine Bilirubin (Negative) Urine Urobilinogen (Normal) mg/dL Ur Leukocyte Esterase (Negative) Urine Microscopic RBC (0-3) per hpf Urine Microscopic WBC (0-3) per hpf Ur Squamous Epith Cells (None-Few) per lpf Urine Bacteria (None-Few) per hpf Hyaline Casts (None-Few) per lpf Ur Culture Indicated? (NO) Salicylates < 2.5 L (15.0-30.0) mg/dL Urine Opiates Screen (Uetntq=398) ng/mL Ur Buprenorphine Scrn (Cutoff=5) ng/mL Acetaminophen < 10 L (10-20) mcg/mL Ur Barbiturates Screen (Zvspxs=116) ng/mL Ur Phencyclidine Scrn (Cutoff=25) ng/mL Ur Amphetamines Screen (Pbkozn=7200) ng/mL U Benzodiazepines Scrn (Arhdgo=686) ng/mL Urine Cocaine Screen (Cutoff= 300) ng/mL U Marijuana (THC) Screen (Cutoff = 50) ng/mL Ur Drug Screen Interp Ethyl Alcohol < 10 < 10 (Less than 10) mg/dL 06/03/19 06/03/19 06/03/19 Range/Units 00:38 00:52 02:15 WBC (4.3-11.1) K/mcL RBC (4.19-5.50) M/mcL Hgb (12.9-16.9) g/dL Hct (37.5-50.1) % MCV (83.0-100.0) fL MCH (28.0-33.3) pg MCHC (31.6-35.5) g/dL RDW (11.5-14.5) % Plt Count (140-400) K/mcL MPV (9.4-12.4) fL Immature Gran % (0-4) % Seg Neutrophils % % Lymphocytes % % Monocytes % % Eosinophils % % Basophils % % Neutrophils # (1.6-8.9) K/mcL Lymphocytes # (0.6-4.6) K/mcL Monocytes # (0.0-1.3) K/mcL Eosinophils # (0.0-0.6) K/mcL Basophils # (0.0-0.2) K/mcL VBG pH 7.32 (7.32-7.42) pH Units VBG pCO2 50 (41-51) mmHg VBG pO2 33 (25-50) mmHg VBG HCO3 26 (21-27) mEq/L Sodium (136-145) mEq/L Potassium (3.5-5.1) mEq/L Chloride (98-107) mEq/L Carbon Dioxide (23-29) mEq/L BUN (6-20) mg/dL Creatinine (0.70-1.30) mg/dL Est GFR ( Amer) (> 60) Est GFR (Non-Af Amer) (> 60) BUN/Creatinine Ratio (6-26) Glucose (70-105) mg/dL Calculated Osmolality (280-300) Calcium (8.6-10.3) mg/dL Total Bilirubin (0.3-1.0) mg/dL Direct Bilirubin (0.0-0.2) mg/dL Indirect Bilirubin (0.0-1.2) mg/dL AST (13-39) Units/L ALT (7-52) Units/L Alkaline Phosphatase (34-104) Units/L Ammonia 39 (16-53) mcmol/L Troponin I (< 0.04) ng/mL Serum Total Protein (6.4-8.9) g/dL Albumin (3.5-5.7) g/dL Globulin (2.4-3.5) g/dL Albumin/Globulin Ratio (1.1-2.2) TSH (0.340-5.600) mcIU/mL Urine Color Yellow (Yellow) Urine Clarity Clear (Clear) Urine pH 7.0 (5.0-8.0) pH Units Ur Specific [place] 1.020 (1.010-1.025) Urine Protein 100 H (Neg-Trace) mg/dL Urine Glucose (UA) Normal (Normal) mg/dL Urine Ketones Negative (Negative) mg/dL Urine Blood Negative (Negative) Urine Nitrite Negative (Negative) Urine Bilirubin Negative (Negative) Urine Urobilinogen Normal (Normal) mg/dL Ur Leukocyte Esterase Small H (Negative) Urine Microscopic RBC 3-5 H (0-3) per hpf Urine Microscopic WBC 15-30 H (0-3) per hpf Ur Squamous Epith Cells Many H (None-Few) per lpf Urine Bacteria None Seen (None-Few) per hpf Hyaline Casts None Seen (None-Few) per lpf Ur Culture Indicated? YES A (NO) Salicylates (15.0-30.0) mg/dL Urine Opiates Screen (Duosia=272) ng/mL Ur Buprenorphine Scrn (Cutoff=5) ng/mL Acetaminophen (10-20) mcg/mL Ur Barbiturates Screen (Keqwjr=057) ng/mL Ur Phencyclidine Scrn (Cutoff=25) ng/mL Ur Amphetamines Screen (Amfupl=0394) ng/mL U Benzodiazepines Scrn (Bsevbd=165) ng/mL Urine Cocaine Screen (Cutoff= 300) ng/mL U Marijuana (THC) Screen (Cutoff = 50) ng/mL Ur Drug Screen Interp Ethyl Alcohol (Less than 10) mg/dL 06/03/19 Range/Units 02:15 WBC (4.3-11.1) K/mcL RBC (4.19-5.50) M/mcL Hgb (12.9-16.9) g/dL Hct (37.5-50.1) % MCV (83.0-100.0) fL MCH (28.0-33.3) pg MCHC (31.6-35.5) g/dL RDW (11.5-14.5) % Plt Count (140-400) K/mcL MPV (9.4-12.4) fL Immature Gran % (0-4) % Seg Neutrophils % % Lymphocytes % % Monocytes % % Eosinophils % % Basophils % % Neutrophils # (1.6-8.9) K/mcL Lymphocytes # (0.6-4.6) K/mcL Monocytes # (0.0-1.3) K/mcL Eosinophils # (0.0-0.6) K/mcL Basophils # (0.0-0.2) K/mcL VBG pH (7.32-7.42) pH Units VBG pCO2 (41-51) mmHg VBG pO2 (25-50) mmHg VBG HCO3 (21-27) mEq/L Sodium (136-145) mEq/L Potassium (3.5-5.1) mEq/L Chloride (98-107) mEq/L Carbon Dioxide (23-29) mEq/L BUN (6-20) mg/dL Creatinine (0.70-1.30) mg/dL Est GFR ( Amer) (> 60) Est GFR (Non-Af Amer) (> 60) BUN/Creatinine Ratio (6-26) Glucose (70-105) mg/dL Calculated Osmolality (280-300) Calcium (8.6-10.3) mg/dL Total Bilirubin (0.3-1.0) mg/dL Direct Bilirubin (0.0-0.2) mg/dL Indirect Bilirubin (0.0-1.2) mg/dL AST (13-39) Units/L ALT (7-52) Units/L Alkaline Phosphatase (34-104) Units/L Ammonia (16-53) mcmol/L Troponin I (< 0.04) ng/mL Serum Total Protein (6.4-8.9) g/dL Albumin (3.5-5.7) g/dL Globulin (2.4-3.5) g/dL Albumin/Globulin Ratio (1.1-2.2) TSH (0.340-5.600) mcIU/mL Urine Color (Yellow) Urine Clarity (Clear) Urine pH (5.0-8.0) pH Units Ur Specific [place] (1.010-1.025) Urine Protein (Neg-Trace) mg/dL Urine Glucose (UA) (Normal) mg/dL Urine Ketones (Negative) mg/dL Urine Blood (Negative) Urine Nitrite (Negative) Urine Bilirubin (Negative) Urine Urobilinogen (Normal) mg/dL Ur Leukocyte Esterase (Negative) Urine Microscopic RBC (0-3) per hpf Urine Microscopic WBC (0-3) per hpf Ur Squamous Epith Cells (None-Few) per lpf Urine Bacteria (None-Few) per hpf Hyaline Casts (None-Few) per lpf Ur Culture Indicated? (NO) Salicylates (15.0-30.0) mg/dL Urine Opiates Screen Negative (Dbccrx=913) ng/mL Ur Buprenorphine Scrn Negative (Cutoff=5) ng/mL Acetaminophen (10-20) mcg/mL Ur Barbiturates Screen Negative (Aqdyzm=651) ng/mL Ur Phencyclidine Scrn Negative (Cutoff=25) ng/mL Ur Amphetamines Screen Negative (Bbmbec=3906) ng/mL U Benzodiazepines Scrn Negative (Cbfwek=960) ng/mL Urine Cocaine Screen Negative (Cutoff= 300) ng/mL U Marijuana (THC) Screen Negative (Cutoff = 50) ng/mL Ur Drug Screen Interp See Below Ethyl Alcohol (Less than 10) mg/dL - Labs Labs: Laboratory Last Values WBC 10.2 K/mcL (4.3-11.1) 06/03/19 00:38 RBC 6.31 M/mcL (4.19-5.50) H 06/03/19 00:38 Hgb 19.0 g/dL (12.9-16.9) H 06/03/19 00:38 Hct 56.5 % (37.5-50.1) H 06/03/19 00:38 MCV 89.5 fL (83.0-100.0) 06/03/19 00:38 MCH 30.1 pg (28.0-33.3) 06/03/19 00:38 MCHC 33.6 g/dL (31.6-35.5) 06/03/19 00:38 RDW 13.5 % (11.5-14.5) 06/03/19 00:38 Plt Count 175 K/mcL (140-400) 06/03/19 00:38 MPV 10.0 fL (9.4-12.4) 06/03/19 00:38 Immature Gran % 0.2 % (0-4) 06/03/19 00:38 Seg Neutrophils % 77.8 % 06/03/19 00:38 Lymphocytes % 14.2 % 06/03/19 00:38 Monocytes % 7.1 % 06/03/19 00:38 Eosinophils % 0.3 % 06/03/19 00:38 Basophils % 0.4 % 06/03/19 00:38 Neutrophils # 8.0 K/mcL (1.6-8.9) 06/03/19 00:38 Lymphocytes # 1.5 K/mcL (0.6-4.6) 06/03/19 00:38 Monocytes # 0.7 K/mcL (0.0-1.3) 06/03/19 00:38 Eosinophils # 0.0 K/mcL (0.0-0.6) 06/03/19 00:38 Basophils # 0.0 K/mcL (0.0-0.2) 06/03/19 00:38 VBG pH 7.32 pH Units (7.32-7.42) 06/03/19 00:52 VBG pCO2 50 mmHg (41-51) 06/03/19 00:52 VBG pO2 33 mmHg (25-50) 06/03/19 00:52 VBG HCO3 26 mEq/L (21-27) 06/03/19 00:52 Sodium 139 mEq/L (136-145) 06/03/19 00:38 Potassium 3.8 mEq/L (3.5-5.1) 06/03/19 00:38 Chloride 106 mEq/L (98-107) 06/03/19 00:38 Carbon Dioxide 23 mEq/L (23-29) 06/03/19 00:38 BUN 19 mg/dL (6-20) 06/03/19 00:38 Creatinine 1.89 mg/dL (0.70-1.30) H 06/03/19 00:38 Est GFR ( Amer) 46 (> 60) L 06/03/19 00:38 Est GFR (Non-Af Amer) 38 (> 60) L 06/03/19 00:38 BUN/Creatinine Ratio 10 (6-26) 06/03/19 00:38 Glucose 94 mg/dL (70-105) 06/03/19 00:38 Calculated Osmolality 290 (280-300) 06/03/19 00:38 Calcium 10.4 mg/dL (8.6-10.3) H 06/03/19 00:38 Total Bilirubin 0.6 mg/dL (0.3-1.0) 06/03/19 00:38 Direct Bilirubin 0.1 mg/dL (0.0-0.2) 06/03/19 00:38 Indirect Bilirubin 0.5 mg/dL (0.0-1.2) 06/03/19 00:38 AST 13 Units/L (13-39) 06/03/19 00:38 ALT 14 Units/L (7-52) 06/03/19 00:38 Alkaline Phosphatase 133 Units/L (34-104) H 06/03/19 00:38 Ammonia 39 mcmol/L (16-53) 06/03/19 00:38 Troponin I < 0.03 ng/mL (< 0.04) 06/03/19 00:38 Serum Total Protein 7.3 g/dL (6.4-8.9) 06/03/19 00:38 Albumin 4.4 g/dL (3.5-5.7) 06/03/19 00:38 Globulin 2.9 g/dL (2.4-3.5) 06/03/19 00:38 Albumin/Globulin Ratio 1.5 (1.1-2.2) 06/03/19 00:38 TSH 2.139 mcIU/mL (0.340-5.600) 06/03/19 00:38 Urine Color Yellow (Yellow) 06/03/19 02:15 Urine Clarity Clear (Clear) 06/03/19 02:15 Urine pH 7.0 pH Units (5.0-8.0) 06/03/19 02:15 Ur Specific [place] 1.020 (1.010-1.025) 06/03/19 02:15 Urine Protein 100 mg/dL (Neg-Trace) H 06/03/19 02:15 Urine Glucose (UA) Normal mg/dL (Normal) 06/03/19 02:15 Urine Ketones Negative mg/dL (Negative) 06/03/19 02:15 Urine Blood Negative (Negative) 06/03/19 02:15 Urine Nitrite Negative (Negative) 06/03/19 02:15 Urine Bilirubin Negative (Negative) 06/03/19 02:15 Urine Urobilinogen Normal mg/dL (Normal) 06/03/19 02:15 Ur Leukocyte Esterase Small (Negative) H 06/03/19 02:15 Urine Microscopic RBC 3-5 per hpf (0-3) H 06/03/19 02:15 Urine Microscopic WBC 15-30 per hpf (0-3) H 06/03/19 02:15 Ur Squamous Epith Cells Many per lpf (None-Few) H 06/03/19 02:15 Urine Bacteria None Seen per hpf (None-Few) 06/03/19 02:15 Hyaline Casts None Seen per lpf (None-Few) 06/03/19 02:15 Ur Culture Indicated? YES (NO) A 06/03/19 02:15 Salicylates < 2.5 mg/dL (15.0-30.0) L 06/03/19 00:38 Urine Opiates Screen Negative ng/mL (Resstb=579) 06/03/19 02:15 Ur Buprenorphine Scrn Negative ng/mL (Cutoff=5) 06/03/19 02:15 Acetaminophen < 10 mcg/mL (10-20) L 06/03/19 00:38 Ur Barbiturates Screen Negative ng/mL (Sjqdlp=588) 06/03/19 02:15 Ur Phencyclidine Scrn Negative ng/mL (Cutoff=25) 06/03/19 02:15 Ur Amphetamines Screen Negative ng/mL (Hbkvsl=7963) 06/03/19 02:15 U Benzodiazepines Scrn Negative ng/mL (Ssysat=442) 06/03/19 02:15 Urine Cocaine Screen Negative ng/mL (Cutoff= 300) 06/03/19 02:15 U Marijuana (THC) Screen Negative ng/mL (Cutoff = 50) 06/03/19 02:15 Ur Drug Screen Interp See Below 06/03/19 02:15 Ethyl Alcohol < 10 mg/dL (Less than 10) 06/03/19 00:38 Ethyl Alcohol < 10 mg/dL (Less than 10) 06/03/19 00:38 - Impressions Impressions Head CT 06/03/19 00:17 IMPRESSION: No acute intracranial abnormality. D/ / Michelet Parson / Michelet Parson Interpreting Provider: Michelet Parson Chest X-Ray 06/03/19 00:20 IMPRESSION: Small amount of opacity in the left retrocardiac area worrisome for pneumonia. No other significant abnormality. D/ / Dimitri Herbert MD / Dimitri Herbert MD Interpreting Provider: Dimitri Herbert MD Consult Discharge Plan - Plan Referrals: Denita Burden MD [Primary Care Provider] -
[2019-06-03] MEDS ORDERED: 0.9 % Sodium Chloride 1,000 ML IVC SCH (11:15)
[2019-06-03] MEDS: 0.9 % Sodium Chloride 1,000 ML IVC SCH ×2 (13:00→19:47)
[2019-06-03] MEDS ORDERED: Nicotine 21 MG PATCH.TD24 TD STA (15:25)
[2019-06-03 16:19] LABS: Albumin 3.9 g/dL (3.5-5.7); Albumin/Globulin Ratio 1.4 (1.1-2.2); Bilirubin,Total 0.5 mg/dL (0.3-1.0); Calcium 10.4 mg/dL (8.6-10.3); Globulin 2.7 g/dL (2.4-3.5); Potassium 4.2 mEq/L (3.5-5.1); Total Protein 6.6 g/dL (6.4-8.9)
[2019-06-04] MEDS: 0.9 % Sodium Chloride 1,000 ML IVC SCH ×2 (02:21→13:28)
[2019-06-04 07:26] LABS: White Blood Count 9.3 K/mcL (4.3-11.1)
[2019-06-04 07:27] LABS: Basophils % 0.4 %; Eosinophils # 0.1 K/mcL (0.0-0.6); Eosinophils % 0.9 %; Hemoglobin 19.2 g/dL (12.9-16.9); Immature Granulocytes % 0.3 % (0-4); Lymphocytes # 1.8 K/mcL (0.6-4.6); Lymphocytes % 19.6 %; Mean Corpuscular HGB Conc 34.1 g/dL (31.6-35.5); Mean Corpuscular Hemoglobin 30.7 pg (28.0-33.3); Mean Corpuscular Volume 90.1 fL (83.0-100.0); Mean Platelet Volume 10.7 fL (9.4-12.4); Monocytes # 0.7 K/mcL (0.0-1.3); Monocytes % 7.7 %; Neutrophils # 6.6 K/mcL (1.6-8.9); Platelet Count 182 K/mcL (140-400); Red Blood Count 6.25 M/mcL (4.19-5.50); Red Cell Distribution Width 13.2 % (11.5-14.5); Segmented Neutrophils % 71.1 %
[2019-06-04 07:30] LABS: Hematocrit 56.3 % (37.5-50.1)
[2019-06-04 07:36] LABS: INR 0.9; Prothrombin Time 10.4 Seconds (9.4-12.1)
[2019-06-04 07:39] LABS: Activated Partial Thrombo Time 36.6 Seconds (26.0-36.0)
[2019-06-04 07:50] LABS: Albumin 4.2 g/dL (3.5-5.7); Albumin/Globulin Ratio 1.4 (1.1-2.2); Bilirubin,Total 0.5 mg/dL (0.3-1.0); Calcium 10.3 mg/dL (8.6-10.3); Chol/HDL Ratio 4.1 (0-4.9); Magnesium 2.1 mg/dL (1.6-2.6); Phosphorous 2.3 mg/dL (2.7-4.5); Potassium 4.1 mEq/L (3.5-5.1); Total Protein 7.2 g/dL (6.4-8.9)
[2019-06-04] MEDS: Nicotine 21 MG PATCH.TD24 TD SCH ×2 (09:27→09:41)
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
[2019-06-04 15:18] VITALS: BP 120/78
== END 2019-06-04 17:32 ==
LOC: EMEROOARM 00:08 → 3BNU 00:08 → SUATTDRO 06:03 → 3BNU 07:54
PROVIDERS: ADMIT Family Medicine; ATTEND Family Medicine

== ENCOUNTER 2019-06-04 17:15 | Inpatient (IN) ==
[2019-06-04] MEDS ORDERED: *HR* LORazepam 2 MG/ML VIAL IM PRN (19:17)
[2019-06-04] MEDS ORDERED: Mag Hydrox/Al Hydrox/Simeth 30 ML UDC PO PRN (19:17)
[2019-06-04] MEDS ORDERED: hydrOXYzine pamoate 25 MG CAPSULE PO PRN (19:17)
[2019-06-04] MEDS ORDERED: Haloperidol Lactate 5 MG/ML VIAL IM PRN (19:17)
[2019-06-04] MEDS ORDERED: MOM Conc 10 ML UD.LIQ PO PRN (19:17)
[2019-06-04] MEDS ORDERED: Ibuprofen 400 MG TABLET PO PRN (19:17)
[2019-06-04] MEDS: Famotidine 20 MG TABLET PO SCH (21:28)
[2019-06-04] MEDS: *HR* LORazepam 1 MG TABLET PO PRN (21:28)
[2019-06-05] MEDS: Famotidine 20 MG TABLET PO SCH ×2 (09:45→21:40)
[2019-06-05] MEDS: Nicotine 21 MG PATCH.TD24 TD SCH (09:49)
[2019-06-05] MEDS: Artificial Tears SOLN 15 ML BOTTLE BOTH EYES SCH ×3 (13:30→21:38)
--- NOTE | 2019-06-05 13:54 | Psychiatry History & Physical ---
Date of Encounter: 06/05/19 Time of Encounter: 01:40 History of Present Illness Patient Stated Chief Complaint: " said I was acting crazy". Medicare Admission Attestation: For traditional Medicare patients the provided hospital inpatient services are reasonable and necessary and in the case of services not specified as inpatient-only under 42 CFR 419.22 (n), that they are appropriately provided as inpatient services in accordance 42 CFR 412.3. For Critical Access Hospital the patient may reasonably be expected to be discharged or transferred to a hospital within 96 hours after admission to the Critical Access Hospital. Admitted From: Intrahospital Transfer Plans for Post Hospital Care: Home History of Present Illness: Mr. Ferguson is a 48 year old male who has a history of bipolar disorder per chart, spouse and self-reported. Client presented to the emergency department by EMS. They were informed of client walking and knocking door to door and looking in windows. Client's son arrived in ER shorty after arrival. He reported client was acting erractically for past week and has been taking his medications for bipolar. Son does not report previous actions similar to this. X-ray showed possible pneumonia and abnormalities in his urinalysis, admitted medically. Psychiatry consult revealed client couldn't tell me about past episodes of yuriy nor current medication regimen of the 100 mg of Zoloft and 25 of Seroquel is not consistent with someone with bipolar disorder. He has never been in a psychiatric hospital before. If he truly does have an underlying bipolar disorder then the medication combination could explain why he may have been having manic symptoms prior to arrival in the emergency room. When I first tried to see him today he was unable to arouse. Later in the day I saw him and spoke with him in his room. He did have difficulty following conversation possibly due to poor hearing and not wanting to wear his hearing aids. He did not endorse fatigue or feeling sedated. He is not oriented to month, but is to day of week and location. He was unable to answer questions related to reason for hospitalization, with limited knowledge of circumstance. Collateral information was obtained from client's spouse for treatment decisions and charting purposes. Spouse describes client's cognition more towards baseline last night, but still with disorientation, synagogue preoccupation after medical treatment prior to being admitted to . Past Med Surg Social Fam HX - Past Medical History Source: patient, old records reviewed, obtained from family (Collateral information obtained from client's spouse. ), nursing notes reviewed Medical history: non-contributory, GERD - Past Psychiatric History Past psychiatric history details: Client denies any previous history of mental illness besides Borderline disorder. Collateral information from spouse confirms history of borderline disorder. No report of hospitalization for mental health. Currently on Zoloft and low dose Seroquel. Family psychiatric history: Unknown Family Psychiatric History Details: Client did not answer this question when asked. Family History of Suicide: Unknown Family Suicide History Details: Client did not answer question when asked. - Past Surgical History Surgical History: other - Social History Smoking Status: Current every day smoker Smokeless Tobacco Status: No Alcohol use: none Drug use: none Occupational status: unemployed Current living situation: Home Activity Level: Independent ambulation Exposure or Possible Exposure to Illness During Travel: No - Family History Mother Living Status: Hx Family Cardiac Disorders: No Hx Family Respiratory Disorders: No Hx Family Cancer: No Hx Family GI Disorders: No Hx Family Genitourinary Disorders: No Hx Family Endocrine Disorder: No Hx Family Musculoskeletal Disorders: No Hx Family Neuromuscular Disorders: No Hx Family Neurologic Disorders: No Hx Family HEENT Disorders: No Hx Family Autoimmune Disorders: No Hx Family Medical Disorders: No Father Family Member Ethnicity: Non- Living Status: Medications & Allergies Levothyroxine Sodium [Levoxyl] 50 mcg PO QAM 04/11/18 [History] raNITIdine HCl [Ranitidine HCl] 150 mg PO BID 04/11/18 [History] Sertraline [Zoloft] 100 mg PO DAILY 06/04/19 [History] Tamsulosin [Flomax] 0.4 mg PO DAILY 06/04/19 [History] Allergy/AdvReac Type Severity Reaction Status Date / Time codeine Allergy Rash Verified 12/05/17 07:38 Review of Systems Constitutional: Denies: chills, weakness Eyes: Denies: vision change Ears, Nose, Throat: Denies: hearing loss (Has hearing aids. Not currently wearing them. Tells staff they are broken.) Cardiovascular: Denies: chest pain, palpitations, syncope Respiratory: Denies: cough, wheezes Gastrointestinal: Denies: abdominal pain, nausea, vomiting, diarrhea, constipation Genitourinary male: Denies: urgency, dysuria, frequency, hematuria, discharge Musculoskeletal: Denies: myalgia Integumentary: Denies: rash Neurological: Reports: confusion. Denies: headache, memory loss, vertigo Psychiatric: Reports: confusion. Denies: depression, anxiety, abnormal sleep pattern Endocrine: Denies: fatigue, polydipsia, polyuria Exam - HEENT Head exam IM: Present: atraumatic Eye exam IM: Present: normal appearance ENT exam IM: Present: normal exam - Neurological Neurological exam: Present: alert - Respiratory Respiratory exam IM: Absent: accessory muscle use, respiratory distress, wheezes, tachypnea - Extremities Extremities exam IM: Present: full ROM - Skin Skin exam IM: Present: normal color. Absent: cyanosis, mottled - Constitutional Vitals: Temp Pulse Resp BP Pulse Ox 97.1 F L 85 16 119/81 96 06/05/19 09:00 06/05/19 09:00 06/05/19 09:00 06/05/19 09:00 06/05/19 09:00 General appearance: age & developmentally appropriate - Musculoskeletal Gait: normal Station: relaxed Strength & Tone: normal for patient - Psychiatric Patient Orientation: Yes Person, No Time (Client stated month as "February or March". He could identify the president & ceo by name and was aware of the day of the week, but not circumstance.), Yes Place, No Circumstance Level of alertness: Alert Behavior: calm, cooperative Psychomotor activity: Normal Eye Contact: Maintains Eye Contact Mood Description: Elevated Affect description: congruent with mood Speech Volume: Normal Speech pattern: clear, disorganized, inappropriate to situation Language & Vocabulary: consistent with education Thought Process: Tangential Thought Content: No Suicidal ideation, No Homicidal ideation, No Overt delusions, Yes Poverty of Content Perceptual Disturbances: No Reacting to internal stimuli, No Auditory hallucinations, No Visual hallucinations Attention Span Ability: Unable to Focus Memory Description: Immediate Intact Patient Reliability: Questionable Historian Fund of knowledge: Yes average Intelligence Estimate: Average Judgment: Poor Insight: Minimal Assessment and Plan (1) Bipolar disorder Current visit: No Status: Chronic Plan: Admit inpatient for safety and stabilization, Close observation, Suicide Precautions per unit protocol, Encourage participation in unit milieu Additional Plan: obtained collateral information from client's spouse. Will increase Seroquel to 100 mg from 50 mg and observe client overnight for improvement in mental health symptoms. Risks, benefits, side effects, alternatives discussed w/pt: Yes Patient agreeable to treatment: Yes Plans for Post Hospital Care: at Home Estimated Length of Stay (Days): 3 Qualifiers: Active/Remission status: remission status unspecified Qualified Code(s): F31.9 - Bipolar disorder, unspecified - Attending Attestation I examined this patient and my medical decision-making was reviewed with the Resident Physician. I agree with the documented findings, disposition and treatment plan as described except to the extent set forth below. Spoke with client's for 45 minutes on the phone. She states during the two weeks prior to admission client was acting bizarrely. He was sitting on their front porch all day and refused to talk to her or come in the house. He wandered away from the house and attempted to break into his home health nurses's home. He started thinking someone was going to pick him up and take him to see his estranged daughter who has not spoken to him in 13 years. Client's states client has never acted this way before. Reportedly has a diagnosis of Bipolar Disorder but has never been admitted psychiatrically and only takes Zoloft and low dose Seroquel at home. No admissions and very limited medications are not typically consistent with Bipolar Disorder. Client was also suspected of having an UTI and lobar pneumonia at the time of his presentation to the ER. According to his client sounded much better on the phone last night and it is possible that his clinical presentation was due to his medical issues and is now resolved. However, client did require prns last night when he became agitated on the unit. Client is very hard of hearing and staff feel his agitation was secondary to another manic and intrusive patient being disruptive. However, client is also religiously focused at present and h is states this is not normal for him. This administrative underwriter has asked client's to come in and visit with him today. Would appreciate her input on how he is relative to his baseline. Will plan to increase his Seroquel dose for tonight to try and address any residual psychosis as well.
[2019-06-05] MEDS: *HR* LORazepam 1 MG TABLET PO PRN (15:18)
[2019-06-06] MEDS: Famotidine 20 MG TABLET PO SCH ×2 (08:59→20:59)
[2019-06-06] MEDS: Nicotine 21 MG PATCH.TD24 TD SCH ×2 (09:02→09:20)
[2019-06-06] MEDS: Artificial Tears SOLN 15 ML BOTTLE BOTH EYES SCH ×4 (09:39→20:59)
--- NOTE | 2019-06-06 12:19 | Psychiatry Progress Note ---
Date of Encounter: 06/06/19 Time of Encounter: 12:11 Subjective Interval history: Client continues to say everything is fine and that he wants to go home. visited last night and client sobbed when she left. According to staff he was laying on the floor with his head in her lap. Client and both seem fairly low functioning and it is hard to get useful/consistent information from them. For example, client denies psychotic symptoms. However, he will then say he hears the voice of his father. Denies his father commands him to do anything but then says he went to his home health nurses's house in the middle of the night due to his father ordering him to do this. 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 However, a letter from his home health nurse indicates client has had unusual behaviors since she started working for the family three years ago. His nurse stated client had Parkinsonian symptoms with Seroquel in the past. However, she recommended Zyprexa or Haldol which are both more likely to cause EPS than Seroquel. Client has been getting Seroquel here in the hospital and at this point he is not evidencing any signs of EPS. Will increase dose one more time tonight. Client adamantly denies he is depressed. Denies SI, intent, or plan. Denies thoughts of harming others. Seems to have some psychosis which may be due to sensory deprivation (lack of hearing) as much as it is due to mental illness. Seems like symptoms have been going on a long time and it is unclear what his baseline is at this point. He has not demonstrated dangerous behaviors in the hospital so will likely plan on discharging him tomorrow. He is well linked with services. Client and his have two home health nurses that come in daily and client has a mental health appointment with [facility] coming up in two weeks. Review of Systems Constitutional: Denies: fever, chills, weakness, weight change Eyes: Denies: eye pain, vision change Ears, Nose, Throat: Denies: ear pain, throat pain, dental pain, hearing loss, congestion Cardiovascular: Denies: chest pain, palpitations, dyspnea on exertion Respiratory: Denies: cough, dyspnea, wheezes Gastrointestinal: Denies: abdominal pain, nausea, vomiting, diarrhea, constipation Musculoskeletal: Denies: joint swelling, joint pain Neurological: Denies: headache, weakness, numbness, memory loss Psychiatric: Reports: confusion. Denies: depression, anxiety, abnormal sleep pattern Results - Vital Signs Vital Signs: Temp Pulse Resp BP Pulse Ox 96.9 F L 76 16 118/83 100 06/06/19 09:00 06/06/19 09:00 06/06/19 09:00 06/06/19 09:00 06/06/19 09:00 Assessment and Plan (1) Bipolar disorder Current visit: No Status: Chronic Plan: Continue hospitalization, Close observation, Suicide Precautions per unit protocol, Encourage participation in unit milieu, Group Therapy, Monitor sleep, Monitor appetite Risks, benefits, side effects, alternatives discussed w/pt: Yes Patient agreeable to treatment: Yes Qualifiers: Active/Remission status: remission status unspecified Qualified Code(s): F31.9 - Bipolar disorder, unspecified Consult Discharge Plan - Plan Referrals: NONE,PCP [Primary Care Provider] - Psychiatry Exam - Constitutional Vitals: Temp Pulse Resp BP Pulse Ox 96.9 F L 76 16 118/83 100 06/06/19 09:00 06/06/19 09:00 06/06/19 09:00 06/06/19 09:00 06/06/19 09:00 General appearance: age & developmentally appropriate - Musculoskeletal Gait: normal Station: relaxed Strength & Tone: normal for patient - Psychiatric Patient Orientation: Yes Person, No Time, Yes Place Level of alertness: Alert Behavior: calm, cooperative Psychomotor activity: Normal Eye Contact: Maintains Eye Contact Mood Description: Anxious Affect description: congruent with mood Speech Volume: Normal Speech pattern: limited Language & Vocabulary: consistent with education Thought Process: [place] Thought Content: No Suicidal ideation, No Homicidal ideation Perceptual Disturbances: Yes Auditory hallucinations Attention Span Ability: Capable of Focused Attention Memory Description: Immediate Intact, Recent Impaired, Remote Intact Patient Reliability: Not Reliable Historian Fund of knowledge: Yes below average Intelligence Estimate: Below Average Judgment: Limited Insight: Minimal
[2019-06-07] MEDS: Famotidine 20 MG TABLET PO SCH (09:07)
[2019-06-07] MEDS: Nicotine 21 MG PATCH.TD24 TD SCH (10:22)
[2019-06-07] MEDS: Artificial Tears SOLN 15 ML BOTTLE BOTH EYES SCH (10:22)
[2019-06-07 11:07] VITALS: BP 98/69
--- NOTE | 2019-06-07 11:35 | Discharge Summary ---
Date of Encounter: 06/07/19 Time of Encounter: 11:31 Diagnosis - Discharge Diagnosis (1) Bipolar disorder Status: Chronic Qualifiers: Active/Remission status: remission status unspecified Qualified Code(s): F31.9 - Bipolar disorder, unspecified Medications - Discharge Medications Prescriptions: Quetiapine Fumarate [Seroquel] 150 mg PO HS #45 tablet Sertraline [Zoloft] 100 mg PO DAILY #30 tablet Levothyroxine Sodium [Levoxyl] 50 mcg PO QAM 04/11/18 [History] raNITIdine HCl [Ranitidine HCl] 150 mg PO BID 04/11/18 [History] Tamsulosin [Flomax] 0.4 mg PO DAILY 06/04/19 [History] Artificial Tears SOLN [Akwa Tears] 1 drop BOTH EYES QID bottle 06/07/19 [Rx] Docusate [Colace] 100 mg PO BID capsule 06/07/19 [Rx] Quetiapine Fumarate [Seroquel] 150 mg PO HS #45 tablet 06/07/19 [Rx] Sertraline [Zoloft] 100 mg PO DAILY #30 tablet 06/07/19 [Rx] Allergy/AdvReac Type Severity Reaction Status Date / Time codeine Allergy Rash Verified 12/05/17 07:38 Provider Date of admission: 06/04/19 17:15 Primary care physician: PCP NONE Discharging clinician: Jamilah Velazquez Psychiatry Exam - Constitutional Vitals: Temp Pulse Resp BP Pulse Ox 96.8 F L 104 16 98/69 98 06/07/19 09:00 06/07/19 09:00 06/07/19 09:00 06/07/19 09:00 06/07/19 09:00 General appearance: age & developmentally appropriate - Musculoskeletal Gait: normal Station: relaxed Strength & Tone: normal for patient - Psychiatric Patient Orientation: Yes Person, Yes Time, Yes Place Level of alertness: Alert Behavior: calm, cooperative Psychomotor activity: Normal Eye Contact: Maintains Eye Contact Mood Description: Euthymic/stable Affect description: congruent with mood Speech Volume: Normal Speech pattern: limited Language & Vocabulary: consistent with education Thought Process: Linear Thought Content: No Suicidal ideation, No Homicidal ideation, No Overt delusions Perceptual Disturbances: No Auditory hallucinations, No Visual hallucinations Attention Span Ability: Capable of Focused Attention Memory Description: Grossly Intact Patient Reliability: Questionable Historian Fund of knowledge: Yes below average Intelligence Estimate: Below Average Judgment: Fair Insight: Partial Hospital Course Hospital course: Mr. Ferguson is a 48 year old male who was admitted secondary to bizarre behaviors at home. He was initially admitted to the medical floor as there was concern for an UTI and pneumonia. Once he was medically cleared he was transferred to . Client has a preexisting diagnosis of Bipolar Disorder and it was unclear if any of his preadmission behaviors were secondary to his mental illness. Client has never been hospitalized for Bipolar Disorder before and was only taking Zoloft and low dose Seroquel at home. On 1A client never manifested any signs/symptoms of yuriy or depression. He did have some bizarre thoughts like believing he could hear the voice of his father, but no signs of major mood disturbance or acute psychosis. His clinical presentation was thought to be due more to his medical issues and sensory deprivation as client is deaf and often refuses to wear his hearing aides. Client has consistently denied SI, intent, or plan and does so again today. He denies HI or thoughts of wanting to harm anyone else. He is eager to go home and smoke. is supportive and wants him home. Client is already well linked with services and has two home health nurses a day. He also has an outpatient appointment with [facility] coming up in two weeks. Although his home health nurse recommended client be started on Zyprexa or Haldol, client has apparently evidenced Parkinsonian signs in the past so it was thought best to increase his Seroquel instead since Seroquel is less likely to cause EPS reactions. Client tolerated the increases with no adverse effects. He slept well and today he is bright, reactive, and future oriented. Total time spent with client greater than 30 minutes. Patient was educated of his diagnosis and the risks, benefits, and side effects of this treatment and alternative treatment options and was monitored for responsiveness and side effects. Mood, anxiety, sleep, appetite, and interest improved, as did future orientation. Self-harm thoughts subsided, thinking cleared, psychosis resolved, and mood stabilized. Patient was able to attend both individual and group therapy sessions as well as meeting with the psychiatrist daily and urged to discuss any medication or treatment issues or other concerns. The patient was educated primarily by verbal means about their diagnosis and manifestations in their life. The option for treatment including group and individual therapy programming was offered to the patient in the use of medications with all their potential risks, benefits, and side effects were discussed with the patient at length. The patient was given the opportunity to ask questions and was noted to participate in the treatment in the planning process. The patient felt ready and eager to be discharged from the inpatient sychiatric unit to continue on with treatment as an outpatient. The patient agreed that he is safe for this disposition. The patient was considered to be able to participate in informed consent and decision making with respect to medical, legal, and financial issues of the time of discharge. At the time of discharge the patient adamantly denied any concerns for lethality including suicidal or homicidal thoughts ideations or plans and was future oriented toward ongoing mental health care, medical follow-up and sobriety. - Time Spent with Patient Total time spent providing and/or coordinating discharge services: Greater than 30 minutes Assessment and Plan - Patient/Caregiver Discharge Instructions Activity: resume usual activities as tolerated Diet: diabetic diet - Follow up Plan Follow up with: NONE,PCP [Primary Care Provider] - Functional capacity at discharge: independent ambulation Overall status at discharge: Stable Disposition: Home, Self-Care Quality - Multiple Antipsychotics Patient discharged on 2 or more antipsychotic medications: No Procedures - Procedures Procedures: Medication Management, Crisis Stabilization, Supportive Therapy, Group Therapy
== END 2019-06-07 14:20 | disposition home or self-care (01) | DRG 885 ==
LOC: 1ANU 17:15
PROVIDERS: ADMIT Psychiatry & Neurology Psychiatry; ATTEND Psychiatry & Neurology Psychiatry

== ENCOUNTER 2020-06-04 18:49 | Inpatient (IN) ==
[2020-06-04 19:41] LABS: Basophils % 0.3 %; Eosinophils % 0.4 %; Lymphocytes % 15.5 %; Mean Platelet Volume 10.2 fL (9.4-12.4); Red Cell Distribution Width 13.4 % (11.5-14.5)
[2020-06-04 19:42] LABS: Hematocrit 52.1 % (37.5-50.1); Hemoglobin 17.8 g/dL (12.9-16.9); Immature Granulocytes % 0.8 % (0-4); Lymphocytes # 1.4 K/mcL (0.6-4.6); Mean Corpuscular HGB Conc 34.2 g/dL (31.6-35.5); Mean Corpuscular Hemoglobin 30.6 pg (28.0-33.3); Mean Corpuscular Volume 89.5 fL (83.0-100.0); Monocytes # 0.7 K/mcL (0.0-1.3); Monocytes % 7.7 %; Neutrophils # 6.9 K/mcL (1.6-8.9); Platelet Count 139 K/mcL (140-400); Red Blood Count 5.82 M/mcL (4.19-5.50); Segmented Neutrophils % 75.3 %; White Blood Count 9.1 K/mcL (4.3-11.1)
[2020-06-04 19:54] LABS: Bilirubin,Urine Negative (Negative); Blood,Urine Negative (Negative); Clarity,Urine Clear (Clear); Color,Urine Light-Yellow (Yellow); Glucose,Urine (UA) Normal (Normal); Ketones,Urine Negative (Negative); Leukocyte Esterase,Urine Small (Negative); Nitrite,Urine Negative (Negative); Protein,Urine Negative (Neg-Trace); RBC,Urine 0-3 per hpf (0-3); Specific Gravity,Urine 1.013 (1.010-1.025); Squamous Epithelial Cell,Urine Few per hpf (None-Few); Urobilinogen,Urine Normal (Normal); WBC,Urine 15-30 per hpf (0-3)
[2020-06-04 19:58] LABS: Amphetamine Screen,Urine Negative ng/mL (Cutoff=1000); Barbiturate Screen,Urine Negative ng/mL (Cutoff=200); Benzodiazepines Screen,Urine Negative ng/mL (Cutoff=200); Cannabinoid Screen,Urine Negative ng/mL (Cutoff = 50); Cocaine Screen,Urine Negative ng/mL (Cutoff= 300); Opiate Screen,Urine Negative ng/mL (Cutoff=300); Phencyclidine Screen,Urine Negative ng/mL (Cutoff=25)
[2020-06-04 20:00] LABS: Acetaminophen < 10 mcg/mL (10-20); BUN/Creatinine Ratio 16 (6-26); Blood Urea Nitrogen 23 mg/dL (6-20); Carbon Dioxide 24 mEq/L (23-29); Chloride 108 mEq/L (98-107); Ethanol < 10 mg/dL (Less than 10); Glucose 94 mg/dL (70-105); Osmolality,Calculated 291 (280-300); Potassium 4.2 mEq/L (3.5-5.1); Salicylate < 2.5 mg/dL (15.0-30.0); Sodium 139 mEq/L (136-145); eGFR For African Americans > 60 (> 60); eGFR For Non-African Americans 52 (> 60)
[2020-06-04 21:39] LABS: Estimated Average Glucose 108 mg/dl
[2020-06-04 22:08] LABS: Thyroid Stimulating Hormone 1.467 mcIU/mL (0.340-5.600)
[2020-06-04] MEDS ORDERED: Haloperidol Lactate 5 MG/ML VIAL IM PRN (22:16)
[2020-06-04] MEDS ORDERED: Mag Hydrox/Al Hydrox/Simeth 30 ML UDC PO PRN (22:16)
[2020-06-04] MEDS ORDERED: Acetaminophen 325 MG TABLET PO PRN (22:16)
[2020-06-04] MEDS ORDERED: *HR* LORazepam 2 MG/ML VIAL IM PRN (22:16)
[2020-06-04] MEDS ORDERED: MOM Conc 10 ML UD.LIQ PO PRN (22:16)
[2020-06-04] MEDS ORDERED: *HR* LORazepam 1 MG TABLET PO PRN (22:16)
[2020-06-04] MEDS ORDERED: haloperidoL 5 MG TABLET PO PRN (22:16)
[2020-06-04] MEDS: hydrOXYzine pamoate 25 MG CAPSULE PO PRN (23:28)
[2020-06-04] MEDS: traZODone 50 MG TABLET PO PRN (23:29)
[2020-06-05] MEDS: ARIPiprazole 5 MG TABLET PO SCH (09:43)
[2020-06-05] MEDS: hydrOXYzine pamoate 25 MG CAPSULE PO PRN (21:21)
[2020-06-05] MEDS: traZODone 50 MG TABLET PO PRN (21:21)
[2020-06-06 09:12] VITALS: BP 119/86
[2020-06-06] MEDS: ARIPiprazole 5 MG TABLET PO SCH (10:51)
== END 2020-06-06 15:05 | disposition home or self-care (01) | DRG 885 ==
LOC: EMEROOARM 18:49 → 1ANU 21:59
PROVIDERS: ADMIT Psychiatry & Neurology Psychiatry; ATTEND Psychiatry & Neurology Psychiatry

== ENCOUNTER 2021-05-15 00:07 | Observation (INO) ==
[2021-05-15 00:45] LABS: Basophils % 0.4 %; Eosinophils # 0.1 K/mcL (0.0-0.6); Eosinophils % 0.9 %; Hemoglobin 16.7 g/dL (12.9-16.9); Immature Granulocytes % 0.6 % (0-4); Lymphocytes # 1.5 K/mcL (0.6-4.6); Lymphocytes % 14.7 %; Mean Corpuscular HGB Conc 32.7 g/dL (31.6-35.5); Mean Corpuscular Hemoglobin 28.5 pg (28.0-33.3); Mean Corpuscular Volume 87.2 fL (83.0-100.0); Mean Platelet Volume 9.4 fL (9.4-12.4); Monocytes # 0.8 K/mcL (0.0-1.3); Monocytes % 7.9 %; Neutrophils # 7.6 K/mcL (1.6-8.9); Platelet Count 188 K/mcL (140-400); Red Blood Count 5.85 M/mcL (4.19-5.50); Red Cell Distribution Width 13.7 % (11.5-14.5); Segmented Neutrophils % 75.5 %; White Blood Count 10.1 K/mcL (4.3-11.1)
[2021-05-15 00:50] LABS: Acetaminophen < 10 mcg/mL (10-20); BUN/Creatinine Ratio 17 (6-26); Blood Urea Nitrogen 31 mg/dL (6-20); Calcium 9.5 mg/dL (8.6-10.3); Carbon Dioxide 21 mEq/L (23-29); Chloride 108 mEq/L (98-107); Chol/HDL Ratio 4.9 (0-4.9); Cholesterol 138 mg/dL (< 200); Ethanol < 10 mg/dL (Less than 10); Glucose 136 mg/dL (70-105); HDL Cholesterol 28 mg/dL (40-59); Osmolality,Calculated 301 (280-300); Potassium 3.9 mEq/L (3.5-5.1); Salicylate < 2.5 mg/dL (15.0-30.0); Sodium 141 mEq/L (136-145); Triglycerides 455 mg/dL (< 150); eGFR For African Americans 46 (> 60); eGFR For Non-African Americans 38 (> 60)
[2021-05-15 01:03] LABS: Estimated Average Glucose 114 mg/dl; Hemoglobin A1C 5.6 %
[2021-05-15 01:11] LABS: Bilirubin,Urine Negative (Negative); Blood,Urine Small (Negative); Clarity,Urine Turbid (Clear); Color,Urine Light-Yellow (Yellow); Glucose,Urine (UA) Normal (Normal); Ketones,Urine Negative (Negative); Leukocyte Esterase,Urine Large (Negative); Mucus,Urine Few per lpf (None-Few); Nitrite,Urine Negative (Negative); PH,Urine 6.5 pH Units (5.0-8.0); Protein,Urine 70 mg/dL (Neg-Trace); RBC,Urine 15-30 per hpf (0-3); Specific Gravity,Urine 1.017 (1.010-1.025); Squamous Epithelial Cell,Urine Few per hpf (None-Few); Urobilinogen,Urine Normal (Normal); WBC,Urine TNTC per hpf (0-3)
[2021-05-15 01:20] LABS: Amphetamine Screen,Urine Negative ng/mL (Cutoff=1000); Barbiturate Screen,Urine Negative ng/mL (Cutoff=200); Benzodiazepines Screen,Urine Negative ng/mL (Cutoff=200); Cannabinoid Screen,Urine Negative ng/mL (Cutoff = 50); Cocaine Screen,Urine Negative ng/mL (Cutoff= 300); Opiate Screen,Urine Negative ng/mL (Cutoff=300); Phencyclidine Screen,Urine Negative ng/mL (Cutoff=25)
[2021-05-15] MEDS ORDERED: cefTRIAXone 2,000 MG in 0.9 % Sodium Chloride Mini Bag 100 ML IVPB ONE (03:27)
[2021-05-15] MEDS ORDERED: 0.9 % Sodium Chloride 1,000 ML IVC ONE (03:27)
[2021-05-15] MEDS ORDERED: hydrOXYzine pamoate 25 MG CAPSULE PO PRN (05:43)
[2021-05-15] MEDS ORDERED: Acetaminophen 325 MG TABLET PO PRN (05:46)
[2021-05-15] MEDS ORDERED: Naloxone 0.4 MG/ML INJ IVP PRN (05:46)
[2021-05-15] MEDS ORDERED: Ondansetron 4 MG/2 ML VIAL IVP PRN (05:46)
[2021-05-15] MEDS ORDERED: Melatonin 3 MG TABLET PO PRN (05:46)
[2021-05-15] MEDS ORDERED: *HR* Heparin 5,000 UNIT/ML VIAL SQ SCH (06:00)
[2021-05-15] MEDS ORDERED: D5% in Water 1,000 ML IVC PRN (06:23)
[2021-05-15] MEDS ORDERED: Dextrose Gel 15 GM/37.5 ML TUBE PO PRN ×2 (06:23)
[2021-05-15] MEDS ORDERED: *HR* Dextrose 50 % in Water (Vial) 50 ML VIAL IVP PRN (06:23)
[2021-05-15] MEDS ORDERED: Insulin LISPRO 300 UNITS/3 ML VIAL SUBQ SCH ×2 (07:30→21:00)
[2021-05-15] MEDS ORDERED: ARIPiprazole 5 MG TABLET PO SCH (09:00)
[2021-05-15 11:08] VITALS: O2SAT 95
[2021-05-15 15:55] VITALS: BP 107/72; PULSE 88; TEMP 98.4
[2021-05-16] MEDS ORDERED: cefTRIAXone 1,000 MG in Water for inj. (sterile) 10 ML IVP SCH (09:00)
== END 2021-05-15 19:28 | disposition home or self-care (01) ==
LOC: EMEROOARM 00:07 → 3BNU 00:07
PROVIDERS: ADMIT Internal Medicine; ATTEND Internal Medicine

== ENCOUNTER 2021-09-19 06:58 | Inpatient (IN) ==
[2021-09-19] MEDS ORDERED: 0.9 % Sodium Chloride 1,000 ML IV ONE ×2 (07:12→08:22)
[2021-09-19] MEDS ORDERED: Isovue-370 500 ML BOTTLE IVP ONE (07:12)
[2021-09-19 08:02] LABS: Basophils % 0.1 %; Hematocrit 53.1 % (37.5-50.1); Immature Granulocytes % 0.6 % (0-4); Lymphocytes # 0.7 K/mcL (0.6-4.6); Lymphocytes % 4.8 %; Mean Corpuscular HGB Conc 33.9 g/dL (31.6-35.5); Mean Corpuscular Volume 85.5 fL (83.0-100.0); Mean Platelet Volume 9.7 fL (9.4-12.4); Monocytes # 1.5 K/mcL (0.0-1.3); Neutrophils # 12.7 K/mcL (1.6-8.9); Platelet Count 130 K/mcL (140-400); Red Blood Count 6.21 M/mcL (4.19-5.50); Red Cell Distribution Width 15.6 % (11.5-14.5); Segmented Neutrophils % 84.5 %; White Blood Count 15.1 K/mcL (4.3-11.1)
[2021-09-19 08:10] LABS: Albumin 4.2 g/dL (3.5-5.7); Albumin/Globulin Ratio 1.4 (1.1-2.2); Bilirubin,Direct 0.1 mg/dL (0.0-0.2); Bilirubin,Indirect 0.9 mg/dL (0.0-1.0); Calcium 9.8 mg/dL (8.6-10.3); Total Protein 7.2 g/dL (6.4-8.9)
[2021-09-19 09:52] LABS: Amorphous Sediment,Urine Few per hpf (None-Few); Bilirubin,Urine Negative (Negative); Blood,Urine Moderate (Negative); Clarity,Urine Turbid (Clear); Color,Urine Yellow (Yellow); Glucose,Urine (UA) Normal (Normal); Ketones,Urine Negative (Negative); Leukocyte Esterase,Urine Large (Negative); Nitrite,Urine Negative (Negative); PH,Urine 6.5 pH Units (5.0-8.0); Protein,Urine 100 mg/dL (Neg-Trace); RBC,Urine 0-3 per hpf (0-3); Specific Gravity,Urine 1.015 (1.010-1.025); Squamous Epithelial Cell,Urine Few per hpf (None-Few); Urobilinogen,Urine Normal (Normal); WBC,Urine TNTC per hpf (0-3)
[2021-09-19] MEDS ORDERED: cefTRIAXone 1,000 MG in 0.9 % Sodium Chloride Mini Bag 100 ML IVPB ONE (10:29)
[2021-09-19] MEDS: Ondansetron 4 MG/2 ML VIAL IVP ONE ×2 (12:14→15:42)
[2021-09-19] MEDS ORDERED: Naloxone 0.4 MG/ML INJ IVP PRN (14:00)
[2021-09-19] MEDS ORDERED: Ondansetron 4 MG/2 ML VIAL IVP PRN (14:00)
[2021-09-19] MEDS ORDERED: Famotidine 20 MG TABLET PO PRN (14:35)
[2021-09-19] MEDS ORDERED: hydrOXYzine pamoate 25 MG CAPSULE PO PRN (14:35)
[2021-09-19] MEDS ORDERED: *HR* OxyCODONE Immed Rel 5 MG TABLET PO PRN (14:47)
[2021-09-19] MEDS: 0.9 % Sodium Chloride 1,000 ML IVC SCH (16:52)
[2021-09-19] MEDS: *HR* Heparin 5,000 UNIT/ML VIAL SQ SCH (20:58)
[2021-09-19] MEDS ORDERED: Acetaminophen IV 1,000 MG/100 ML BAG IVPB ONE (23:04)
[2021-09-20] MEDS ORDERED: 0.9 % Sodium Chloride 1,000 ML IVC ONE (00:34)
[2021-09-20 02:57] LABS: Basophils % 0.1 %; Lymphocytes % 4.2 %
[2021-09-20 03:00] LABS: Hematocrit 45.8 % (37.5-50.1); Hemoglobin 15.2 g/dL (12.9-16.9); Immature Granulocytes % 0.6 % (0-4); Immature Platelets 2.5 % (1.1-6.1); Lymphocytes # 0.6 K/mcL (0.6-4.6); Mean Corpuscular HGB Conc 33.2 g/dL (31.6-35.5); Mean Corpuscular Hemoglobin 29.1 pg (28.0-33.3); Mean Corpuscular Volume 87.6 fL (83.0-100.0); Mean Platelet Volume 9.9 fL (9.4-12.4); Monocytes # 1.3 K/mcL (0.0-1.3); Monocytes % 9.1 %; Neutrophils # 12.6 K/mcL (1.6-8.9); Platelet Count 113 K/mcL (140-400); Red Blood Count 5.23 M/mcL (4.19-5.50); Red Cell Distribution Width 14.9 % (11.5-14.5); White Blood Count 14.7 K/mcL (4.3-11.1)
[2021-09-20 03:10] LABS: Calcium 8.2 mg/dL (8.6-10.3); Potassium 3.9 mEq/L (3.5-5.1)
[2021-09-20] MEDS: *HR* Heparin 5,000 UNIT/ML VIAL SQ SCH ×4 (05:40→21:26)
[2021-09-20] MEDS: 0.9 % Sodium Chloride 1,000 ML IVC SCH (05:41)
[2021-09-20] MEDS: ARIPiprazole 10 MG TABLET PO SCH (06:46)
[2021-09-20] MEDS: Cholecalciferol (D-3) 1,000 UNIT (25MCG) TABLET PO SCH (06:46)
[2021-09-20] MEDS ORDERED: Acetaminophen IV 1,000 MG/100 ML BAG IVPB ONE ×2 (07:21→11:12)
[2021-09-20] MEDS: cefTRIAXone 1,000 MG in 0.9 % Sodium Chloride Mini Bag 100 ML IVPB SCH (08:03)
[2021-09-20] MEDS ORDERED: Pregabalin 75 MG CAPSULE PO ONE (11:12)
[2021-09-20] MEDS ORDERED: *HR* Labetalol 20 MG/4 ML SYRINGE IVP PRN (11:12)
[2021-09-20] MEDS ORDERED: *HR* HYDROmorphone (PF) 1 MG/ML SYRINGE IVP PRN (11:12)
[2021-09-20] MEDS ORDERED: *HR* OxyCODONE Immed Rel 5 MG TABLET PO PRN (11:12)
[2021-09-20] MEDS ORDERED: Famotidine 20 MG/2 ML VIAL IVP ONE (11:12)
[2021-09-20] MEDS ORDERED: *HR* HYDROmorphone 2 MG TABLET PO PRN (11:12)
[2021-09-20] MEDS ORDERED: *HR* FentaNYL (PF) 100 MCG/2 ML VIAL ONE (12:57)
[2021-09-20] MEDS ORDERED: *HR* Midazolam HCl 2 MG/2 ML VIAL ONE (12:57)
[2021-09-20] MEDS ORDERED: *HR* Propofol 200 MG/20 ML VIAL IVP ONE (12:57)
[2021-09-20] MEDS ORDERED: Ondansetron 4 MG/2 ML VIAL ONE (12:59)
[2021-09-20] MEDS ORDERED: Lidocaine -MPF 2% 5 ML VIAL ONE (12:59)
[2021-09-21] MEDS: *HR* Heparin 5,000 UNIT/ML VIAL SQ SCH ×3 (06:18→22:00)
[2021-09-21] MEDS: cefTRIAXone 1,000 MG in 0.9 % Sodium Chloride Mini Bag 100 ML IVPB SCH (08:38)
[2021-09-21] MEDS: Cholecalciferol (D-3) 1,000 UNIT (25MCG) TABLET PO SCH (08:39)
[2021-09-21] MEDS: ARIPiprazole 10 MG TABLET PO SCH (08:39)
[2021-09-21] MEDS: 0.9 % Sodium Chloride 1,000 ML IVC SCH (10:04)
[2021-09-21 11:13] LABS: Basophils % 0.1 %; Eosinophils # 0.1 K/mcL (0.0-0.6); Eosinophils % 0.6 %; Hematocrit 45.5 % (37.5-50.1); Hemoglobin 14.5 g/dL (12.9-16.9); Immature Granulocytes % 0.4 % (0-4); Immature Platelets 3.6 % (1.1-6.1); Lymphocytes # 0.9 K/mcL (0.6-4.6); Lymphocytes % 9.5 %; Mean Corpuscular HGB Conc 31.9 g/dL (31.6-35.5); Mean Corpuscular Volume 87.8 fL (83.0-100.0); Mean Platelet Volume 9.9 fL (9.4-12.4); Monocytes # 0.8 K/mcL (0.0-1.3); Monocytes % 8.6 %; Neutrophils # 7.4 K/mcL (1.6-8.9); Platelet Count 131 K/mcL (140-400); Red Blood Count 5.18 M/mcL (4.19-5.50); Red Cell Distribution Width 15.1 % (11.5-14.5); Segmented Neutrophils % 80.8 %; White Blood Count 9.1 K/mcL (4.3-11.1)
[2021-09-21 11:35] LABS: Calcium 8.3 mg/dL (8.6-10.3); Potassium 3.9 mEq/L (3.5-5.1)
[2021-09-21] MEDS ORDERED: Famotidine 20 MG TABLET PO PRN (15:38)
[2021-09-22] MEDS: 0.9 % Sodium Chloride 1,000 ML IVC SCH ×2 (00:38→08:28)
[2021-09-22] MEDS: *HR* Heparin 5,000 UNIT/ML VIAL SQ SCH ×3 (05:12→20:50)
[2021-09-22 05:52] LABS: Basophils % 0.1 %; Eosinophils # 0.1 K/mcL (0.0-0.6); Eosinophils % 1.4 %; Hematocrit 47.8 % (37.5-50.1); Hemoglobin 15.2 g/dL (12.9-16.9); Immature Granulocytes % 0.5 % (0-4); Lymphocytes # 0.7 K/mcL (0.6-4.6); Mean Corpuscular HGB Conc 31.8 g/dL (31.6-35.5); Mean Corpuscular Hemoglobin 28.1 pg (28.0-33.3); Mean Corpuscular Volume 88.4 fL (83.0-100.0); Mean Platelet Volume 9.9 fL (9.4-12.4); Monocytes # 0.9 K/mcL (0.0-1.3); Monocytes % 9.7 %; Platelet Count 138 K/mcL (140-400); Red Blood Count 5.41 M/mcL (4.19-5.50); Red Cell Distribution Width 15.1 % (11.5-14.5); Segmented Neutrophils % 80.3 %; White Blood Count 8.7 K/mcL (4.3-11.1)
[2021-09-22 06:09] LABS: Calcium 8.8 mg/dL (8.6-10.3); Potassium 4.2 mEq/L (3.5-5.1)
[2021-09-22] MEDS: Cholecalciferol (D-3) 1,000 UNIT (25MCG) TABLET PO SCH (09:15)
[2021-09-22] MEDS: cefTRIAXone 1,000 MG in 0.9 % Sodium Chloride Mini Bag 100 ML IVPB SCH (09:18)
[2021-09-22] MEDS: ARIPiprazole 10 MG TABLET PO SCH (09:23)
[2021-09-23] MEDS: *HR* Heparin 5,000 UNIT/ML VIAL SQ SCH ×2 (05:34→14:04)
[2021-09-23 07:03] LABS: Basophils % 0.3 %; Eosinophils # 0.2 K/mcL (0.0-0.6); Eosinophils % 1.9 %; Hematocrit 46.4 % (37.5-50.1); Hemoglobin 14.6 g/dL (12.9-16.9); Immature Granulocytes % 0.8 % (0-4); Lymphocytes # 0.8 K/mcL (0.6-4.6); Lymphocytes % 10.3 %; Mean Corpuscular HGB Conc 31.5 g/dL (31.6-35.5); Mean Corpuscular Hemoglobin 27.9 pg (28.0-33.3); Mean Corpuscular Volume 88.5 fL (83.0-100.0); Mean Platelet Volume 9.3 fL (9.4-12.4); Monocytes # 0.8 K/mcL (0.0-1.3); Monocytes % 10.1 %; Neutrophils # 6.1 K/mcL (1.6-8.9); Platelet Count 150 K/mcL (140-400); Red Blood Count 5.24 M/mcL (4.19-5.50); Segmented Neutrophils % 76.6 %; White Blood Count 7.9 K/mcL (4.3-11.1)
[2021-09-23 07:19] LABS: Calcium 9.2 mg/dL (8.6-10.3); Potassium 4.5 mEq/L (3.5-5.1)
[2021-09-23] MEDS: ARIPiprazole 10 MG TABLET PO SCH (08:41)
[2021-09-23] MEDS: Cholecalciferol (D-3) 1,000 UNIT (25MCG) TABLET PO SCH (08:43)
[2021-09-23] MEDS ORDERED: Cefdinir 300 MG CAPSULE PO SCH (09:00)
[2021-09-23 10:36] VITALS: TEMP 98.1
[2021-09-23 14:17] VITALS: BP 133/83; PULSE 70; O2SAT 93
[2021-09-23] MEDS ORDERED: FLU Vac QV 21-22 (6Month+)/PF 0.5 ML SYRINGE IM ONE (17:23)
== END 2021-09-23 18:49 | disposition home or self-care (01) | DRG 854 ==
LOC: EMEROOARM 06:58 → 3ANU 06:58 → SUATTDRO 14:27 → 3ANU 16:02 → SUATTDRO 09-20 12:58
PROVIDERS: ADMIT Family Medicine; ATTEND Family Medicine

== ENCOUNTER 2022-04-07 19:23 | Inpatient (IN) ==
[2022-04-07] MEDS ORDERED: Ondansetron 4 MG/2 ML VIAL IVP ONE (20:02)
[2022-04-07] MEDS ORDERED: 0.9 % Sodium Chloride 1,000 ML IVC ONE (20:02)
[2022-04-07 20:40] LABS: Eosinophils % 0.1 %
[2022-04-07 20:42] LABS: Immature Platelets 5.7 % (1.1-6.1)
[2022-04-07 20:45] LABS: Bacteria,Urine Few per hpf (None-Few); Bilirubin,Urine Negative (Negative); Blood,Urine Large (Negative); Clarity,Urine Ex.Turbid (Clear); Color,Urine Orange (Yellow); Glucose,Urine (UA) Normal (Normal); Ketones,Urine Negative (Negative); Leukocyte Esterase,Urine Large (Negative); Mucus,Urine Few per lpf (None-Few); Nitrite,Urine Negative (Negative); Protein,Urine >=600 mg/dL (Neg-Trace); RBC,Urine TNTC per hpf (0-3); Specific Gravity,Urine 1.017 (1.010-1.025); Urobilinogen,Urine Normal (Normal); WBC,Urine TNTC per hpf (0-3)
[2022-04-07 20:46] LABS: Basophils % 0.2 %; Hematocrit 52.6 % (37.5-50.1); Hemoglobin 17.8 g/dL (12.9-16.9); Immature Granulocytes % 0.6 % (0-4); Lymphocytes # 0.9 K/mcL (0.6-4.6); Lymphocytes % 5.8 %; Mean Corpuscular HGB Conc 33.8 g/dL (31.6-35.5); Mean Corpuscular Hemoglobin 28.8 pg (28.0-33.3); Mean Corpuscular Volume 85.3 fL (83.0-100.0); Mean Platelet Volume 10.8 fL (9.4-12.4); Monocytes # 0.9 K/mcL (0.0-1.3); Monocytes % 5.6 %; Red Blood Count 6.17 M/mcL (4.19-5.50); Red Cell Distribution Width 15.1 % (11.5-14.5); Segmented Neutrophils % 87.7 %
[2022-04-07 21:02] LABS: Albumin/Globulin Ratio 1.3 (1.1-2.2); Bilirubin,Direct 0.2 mg/dL (0.0-0.2); Bilirubin,Indirect 1.2 mg/dL (0.0-1.0); Bilirubin,Total 1.4 mg/dL (0.3-1.0); Calcium 9.7 mg/dL (8.6-10.3); Potassium 3.8 mEq/L (3.5-5.1); Troponin I 0.04 ng/mL (< 0.04)
[2022-04-07 21:15] LABS: INR 1.3; Platelet Count 78 K/mcL (140-400); Prothrombin Time 14.8 Seconds (9.4-12.1)
[2022-04-07 21:17] LABS: Large Platelets Present (Not Present); Platelet Estimate Marked Decrease (Normal)
[2022-04-07] MEDS ORDERED: cefTRIAXone 1,000 MG in 0.9 % Sodium Chloride Mini Bag 100 ML IVPB ONE (21:30)
[2022-04-07 21:44] LABS: Influenza A PCR Negative (Negative); Influenza B PCR Negative (Negative); Resp. Syncytial Virus PCR Negative (Negative)
[2022-04-07 21:49] LABS: SARS-CoV-2 by PCR (In House) Negative (Negative)
[2022-04-07] MEDS ORDERED: Ondansetron 4 MG/2 ML VIAL IVP PRN (21:53)
[2022-04-07] MEDS ORDERED: Naloxone 0.4 MG/ML INJ IVP PRN (21:53)
[2022-04-07] MEDS ORDERED: Acetaminophen 325 MG TABLET PO PRN (21:53)
[2022-04-07] MEDS ORDERED: Famotidine 20 MG TABLET PO PRN (23:26)
[2022-04-08] MEDS: 0.9 % Sodium Chloride 1,000 ML IVC SCH ×2 (00:50→11:15)
[2022-04-08 01:12] LABS: Protein/Creatinine Ratio,Urine 2.18 mg/mg (0.00-0.20); Sodium, Urine 35.4 mEq/L
[2022-04-08 03:05] LABS: Eosinophils % 0.3 %; Hemoglobin 16.7 g/dL (12.9-16.9)
[2022-04-08 03:07] LABS: Basophils % 0.2 %; Hematocrit 50.2 % (37.5-50.1); Immature Granulocytes % 0.5 % (0-4); Immature Platelets 5.2 % (1.1-6.1); Lymphocytes # 0.6 K/mcL (0.6-4.6); Lymphocytes % 5.3 %; Mean Corpuscular HGB Conc 33.3 g/dL (31.6-35.5); Mean Corpuscular Hemoglobin 28.9 pg (28.0-33.3); Mean Corpuscular Volume 86.9 fL (83.0-100.0); Mean Platelet Volume 9.6 fL (9.4-12.4); Monocytes # 0.8 K/mcL (0.0-1.3); Monocytes % 6.4 %; Neutrophils # 10.4 K/mcL (1.6-8.9); Red Blood Count 5.78 M/mcL (4.19-5.50); Segmented Neutrophils % 87.3 %; White Blood Count 11.9 K/mcL (4.3-11.1)
[2022-04-08 03:11] LABS: Platelet Count 77 K/mcL (140-400)
[2022-04-08 03:19] LABS: Estimated Average Glucose 111 mg/dl; Hemoglobin A1C 5.5 %; INR 1.3; Prothrombin Time 14.4 Seconds (9.4-12.1)
[2022-04-08 03:25] LABS: Complement C3 150 mg/dL (87-200)
[2022-04-08 03:28] LABS: Magnesium 1.8 mg/dL (1.6-2.6); Phosphorous 2.5 mg/dL (2.7-4.5); Potassium 3.6 mEq/L (3.5-5.1)
[2022-04-08 05:59] LABS: Hepatitis B Surface Antigen Nonreactive (Nonreactive)
[2022-04-08 06:30] LABS: Hepatitis A Antibody IgM Nonreactive (Nonreactive); Hepatitis B Core IgM Nonreactive (Nonreactive)
[2022-04-08 06:31] LABS: Hepatitis C Virus Antibody Nonreactive (Nonreactive)
[2022-04-08] MEDS: ARIPiprazole 5 MG TABLET PO SCH (07:38)
[2022-04-08] MEDS: Cholecalciferol (D-3) 1,000 UNIT (25MCG) TABLET PO SCH (07:38)
[2022-04-08] MEDS: cefTRIAXone 1,000 MG in 0.9 % Sodium Chloride 10 ML IVPB SCH (07:39)
[2022-04-08] MEDS ORDERED: Famotidine 20 MG TABLET PO PRN (15:17)
[2022-04-08 18:07] LABS: Adenovirus F 40/41 PCR Not detected (Not detect); Astrovirus PCR Not detected (Not detect); C.difficile Toxin A/B Gene PCR Not detected (Not detect); Campylobacter by PCR Not detected (Not detect); Cryptosporidium by PCR Not detected (Not detect); Cyclospora cayetanensis PCR Not detected (Not detect); Entamoeba histolytica PCR Not detected (Not detect); Enteroaggregative E.coli(EAEC) Not detected (Not detect); Enteropathogenic E.coli(EPEC) Not detected (Not detect); Enterotoxigenic E.coli (ETEC) Not detected (Not detect); Giardia lamblia PCR Not detected (Not detect); Norovirus GI/GII PCR Not detected (Not detect); Plesiomonas shigelloides PCR Not detected (Not detect); Rotavirus A PCR Not detected (Not detect); Salmonella PCR Not detected (Not detect); Sapovirus PCR Not detected (Not detect); Shig/EnteroinvasiveE coli EIEC Not detected (Not detect); Shigalike tox-prod E coli STEC Not detected (Not detect); Vibrio PCR Not detected (Not detect); Vibrio cholerae PCR Not detected (Not detect); Yersinia enterocolitica PCR Not detected (Not detect)
[2022-04-09 08:31] LABS: Basophils % 0.4 %; Eosinophils # 0.3 K/mcL (0.0-0.6); Eosinophils % 3.3 %; Hemoglobin 14.2 g/dL (12.9-16.9); Immature Granulocytes % 0.9 % (0-4); Lymphocytes % 11.8 %; Mean Corpuscular HGB Conc 32.3 g/dL (31.6-35.5); Monocytes # 0.8 K/mcL (0.0-1.3); Monocytes % 9.6 %; Red Blood Count 4.89 M/mcL (4.19-5.50); Red Cell Distribution Width 15.2 % (11.5-14.5); White Blood Count 8.2 K/mcL (4.3-11.1)
[2022-04-09 08:40] LABS: Neutrophils # 6.1 K/mcL (1.6-8.9); Platelet Count 97 K/mcL (140-400)
[2022-04-09 08:46] LABS: Calcium 9.2 mg/dL (8.6-10.3)
[2022-04-09] MEDS: cefTRIAXone 1,000 MG in 0.9 % Sodium Chloride 10 ML IVPB SCH (09:55)
[2022-04-09] MEDS: ARIPiprazole 5 MG TABLET PO SCH (09:55)
[2022-04-09] MEDS: Cholecalciferol (D-3) 1,000 UNIT (25MCG) TABLET PO SCH (09:55)
[2022-04-09] MEDS ORDERED: 0.9 % Sodium Chloride 1,000 ML IVC SCH (11:00)
[2022-04-10 07:08] LABS: ANA IgG by ELISA NONE DETECTED (None Detected)
[2022-04-10 07:22] LABS: Basophils % 0.3 %; Eosinophils # 0.2 K/mcL (0.0-0.6); Eosinophils % 2.5 %; Hematocrit 43.3 % (37.5-50.1); Hemoglobin 14.1 g/dL (12.9-16.9); Immature Granulocytes % 0.5 % (0-4); Immature Platelets 2.6 % (1.1-6.1); Lymphocytes # 1.1 K/mcL (0.6-4.6); Lymphocytes % 15.2 %; Mean Corpuscular HGB Conc 32.6 g/dL (31.6-35.5); Mean Corpuscular Hemoglobin 28.9 pg (28.0-33.3); Mean Corpuscular Volume 88.7 fL (83.0-100.0); Mean Platelet Volume 9.9 fL (9.4-12.4); Monocytes # 0.7 K/mcL (0.0-1.3); Monocytes % 10.1 %; Neutrophils # 5.2 K/mcL (1.6-8.9); Platelet Count 130 K/mcL (140-400); Red Blood Count 4.88 M/mcL (4.19-5.50); Red Cell Distribution Width 14.7 % (11.5-14.5); Segmented Neutrophils % 71.4 %; White Blood Count 7.3 K/mcL (4.3-11.1)
[2022-04-10 07:40] LABS: Calcium 9.6 mg/dL (8.6-10.3); Potassium 4.3 mEq/L (3.5-5.1)
[2022-04-10] MEDS: cefTRIAXone 1,000 MG in 0.9 % Sodium Chloride 10 ML IVPB SCH (08:31)
[2022-04-10] MEDS: Cholecalciferol (D-3) 1,000 UNIT (25MCG) TABLET PO SCH (08:32)
[2022-04-10] MEDS: ARIPiprazole 5 MG TABLET PO SCH (08:32)
[2022-04-10] MEDS: Lactobacillus 1 EACH CAP.SPRINK PO SCH (20:46)
[2022-04-11 05:58] LABS: Basophils % 0.3 %; Eosinophils # 0.1 K/mcL (0.0-0.6); Eosinophils % 1.5 %; Hematocrit 46.7 % (37.5-50.1); Hemoglobin 15.2 g/dL (12.9-16.9); Immature Granulocytes % 1.2 % (0-4); Lymphocytes # 0.9 K/mcL (0.6-4.6); Lymphocytes % 10.7 %; Mean Corpuscular HGB Conc 32.5 g/dL (31.6-35.5); Mean Corpuscular Volume 89.1 fL (83.0-100.0); Mean Platelet Volume 9.9 fL (9.4-12.4); Monocytes # 0.9 K/mcL (0.0-1.3); Monocytes % 10.3 %; Neutrophils # 6.5 K/mcL (1.6-8.9); Platelet Count 146 K/mcL (140-400); Red Blood Count 5.24 M/mcL (4.19-5.50); Red Cell Distribution Width 14.6 % (11.5-14.5); White Blood Count 8.6 K/mcL (4.3-11.1)
[2022-04-11 06:31] LABS: Calcium 10.7 mg/dL (8.6-10.3); Potassium 4.7 mEq/L (3.5-5.1)
[2022-04-11 06:33] LABS: Magnesium 2.1 mg/dL (1.6-2.6); Phosphorous 3.9 mg/dL (2.7-4.5)
[2022-04-11 07:29] LABS: GBM IgG Multiplex Bead Assay 0 AU/mL (0-19); Glomerular Basement Memb IgG NEGATIVE (Negative)
[2022-04-11] MEDS: cefTRIAXone 1,000 MG in 0.9 % Sodium Chloride 10 ML IVPB SCH (07:52)
[2022-04-11] MEDS: ARIPiprazole 5 MG TABLET PO SCH (07:52)
[2022-04-11] MEDS: Cholecalciferol (D-3) 1,000 UNIT (25MCG) TABLET PO SCH (07:52)
[2022-04-11] MEDS: Lactobacillus 1 EACH CAP.SPRINK PO SCH (07:53)
[2022-04-11] MEDS ORDERED: Multivit/Ca/Min/Fe/FA 1 TAB TABLET PO SCH (09:00)
[2022-04-11 11:27] VITALS: BP 129/93; PULSE 90; TEMP 98.5; O2SAT 95
[2022-04-11 19:04] LABS: ANCA IFA Titer <1:20 (<1:20)
[2022-04-12 09:26] LABS: ANCA IFA Pattern NONE DETECTED (None Detected); Serine Protease-3 Antibody 2 AU/mL (0-19)
== END 2022-04-11 13:56 | disposition home health service (06) | DRG 871 ==
LOC: EMEROOARM 19:23 → 3NENU 19:23 → SUATTDRO 21:55 → 3NENU 22:59 → SUATTDRO 04-09 15:23
PROVIDERS: ADMIT Internal Medicine; ATTEND Internal Medicine